=== PATIENT | female | born 1985 | race African-American/Black ===

== ENCOUNTER 2016-11-25 11:27 | Emergency (ER) | payer MEDICAID ==
--- NOTE | 2016-11-25 11:42 | ER Document Report ---
ED Medical Screen (RME) - General Chief Complaint: Breast Lump Stated Complaint: PAIN IN LEFT BREAST Mode of Arrival: Ambulatory Information source: Patient Notes: Patient presents complaining of tender lump between her breast and just into the lateral margin of her left breast. Patient denies any fever. Patient states she has been apply warm compresses and the area has become more swollen and painful. She does report a history of previous abscess in the past. TRAVEL OUTSIDE OF THE [place] IN LAST 30 DAYS: No - Related Data Allergies/Adverse Reactions: clindamycin [Clindamycin] Allergy (Verified 10/10/16 12:15) Swelling of hands and/or feet Past Medical History - Social History Family history: Reviewed & Not Pertinent - Past Medical History Cardiac Medical History: Reports: Hx Hypertension Denies: Hx Congestive Heart Failure, Hx Coronary Artery Disease, Hx Heart Attack Endocrine Medical History: Denies: Hx Diabetes Mellitus Type 1, Hx Diabetes Mellitus Type 2 - Borderline in the past. Musculoskeltal Medical History: Reports Hx Musculoskeletal Deformity Skin Medical History: Reports Hx Cellulitis, Reports Hx MRSA Psychiatric Medical History: Reports: Hx Anxiety, Hx Depression - AND ANXIETY Infectious Medical History: Reports: Hx MRSA Past Surgical History: Reports: Hx Breast Surgery - Right breast abscess incision and drainage, Hx Section - Immunizations Immunizations up to date: Yes Hx Diphtheria, Pertussis, Tetanus Vaccination: Yes - 2014 Physical Exam - Skin Irregularity with: Tenderness - Tender, indurated area between breasts
--- NOTE | 2016-11-25 13:26 | ER Document Report ---
ED General - General Chief Complaint: Breast Lump Stated Complaint: PAIN IN LEFT BREAST Mode of Arrival: Ambulatory Notes: Patient presents to the emergency department with complaints of a sore spot to her breast. Patient reports she had soreness to the same area 3 weeks ago she went to her provider was told to place warm packs on it and it went away. She reports pain returned 2 days ago. History of breast abscesses. History of multiple abscesses under her arm for which she's had surgeries for. She denies other symptoms such as fever vomiting diarrhea. TRAVEL OUTSIDE OF THE [place] IN LAST 30 DAYS: No - HPI Onset: Other - 3 weeks ago and then 2 days ago Onset/Duration: Waxing and waning Severity: Severe Pain Level: 4 Associated symptoms: None Exacerbated by: Denies Relieved by: Denies Similar symptoms previously: Yes Recently seen / treated by doctor: Yes - Related Data Allergies/Adverse Reactions: clindamycin [Clindamycin] Allergy (Verified 10/10/16 12:15) Swelling of hands and/or feet Past Medical History - General Information source: Patient - Social History Smoking Status: Current Every Day Smoker Cigarette use (# per day): Yes Chew tobacco use (# tins/day): - smokes 4 cigarettes daily Frequency of alcohol use: None Drug Abuse: None Family History: Reviewed & Not Pertinent, Hypertension, Other Patient has suicidal ideation: No Patient has homicidal ideation: No - Past Medical History Cardiac Medical History: Reports: Hx Hypertension Denies: Hx Congestive Heart Failure, Hx Coronary Artery Disease, Hx Heart Attack Endocrine Medical History: Denies: Hx Diabetes Mellitus Type 1, Hx Diabetes Mellitus Type 2 - Borderline in the past. Musculoskeltal Medical History: Reports Hx Musculoskeletal Deformity Skin Medical History: Reports Hx Cellulitis, Denies Hx MRSA - denied Psychiatric Medical History: Reports: Hx Anxiety, Hx Depression - AND ANXIETY Infectious Medical History: Reports: Hx MRSA Past Surgical History: Reports: Hx Breast Surgery - Right breast abscess incision and drainage, Hx Section - Immunizations Immunizations up to date: Yes Hx Diphtheria, Pertussis, Tetanus Vaccination: Yes - 2014 Review of Systems - Review of Systems Notes: Review HPI for review of systems., All other systems negative Physical Exam - Vital signs Vitals: Temp Pulse Resp BP Pulse Ox 98.6 F 86 16 144/94 H 100 11/25/16 11:42 11/25/16 11:42 11/25/16 11:42 11/25/16 11:42 11/25/16 11:42 - Notes Notes: PHYSICAL EXAMINATION: GENERAL: Well-appearing and in no acute distress HEAD: Atraumatic, normocephalic. EYES: Pupils equal round , extraocular movements intact, sclera anicteric, conjunctiva are normal. ENT: nares patent, . Moist mucous membranes. NECK: Normal range of motion, supple without lymphadenopathy LUNGS: CTAB and equal. No wheezes rales or rhonchi. HEART: Regular rate and rhythm without murmurs ABDOMEN: Denies pain EXTREMITIES: Normal range of motion NEUROLOGICAL: Cranial nerves grossly intact PSYCH: Normal mood, normal affect. SKIN: Warm, Dry, normal turgor,c/o tenderness inbetween breast and 0900 area to left breast. No erythema or warmth or pustule. Some firmness deep in the left breast Course - Re-evaluation Re-evalutation: 11/25/16 Patient had been evaluated and treated by Dr. Elke norris for her past surgeries. She was advised to follow-up with him. She reports she is to follow -up with her primary care provider to obtain a referral there. She was offered pain medication and accepted. - Vital Signs Vital signs: Temp Pulse Resp BP Pulse Ox 98.1 F 86 16 134/83 H 98 11/25/16 15:15 11/25/16 11:42 11/25/16 15:15 11/25/16 15:15 11/25/16 15:15 - Diagnostic Test Radiology reviewed: Image reviewed, Reports reviewed - IMPRESSION: 17 MM COMPLEX FLUID COLLECTION WITHIN THE SUBDERMAL SOFT TISSUES MEDIAL LEFT BREAST/ CHEST. THIS COULD REPRESENT A SMALL ABSCESS OR INFECTED SEBACEOUS CYST. CORRELATE WITH PHYSICAL EXAM FINDINGS. Discharge - Discharge Clinical Impression: Breast pain Condition: Stable Disposition: HOME, SELF-CARE Instructions: Oral Narcotic Medication ([facility]) Additional Instructions: *You have been treated for breast pain *Take medication as prescribed for pain *Monitor your breast for signs of infection such as increasing pain, redness, swelling, warmth *warm packs *Follow up with your primary care provider tomorrow for surgical referral *Return to ED for signs of infection, worsening condition, changes, needs Prescriptions: Hydrocodone/Acetaminophen [Lamoni 5-325 Tablet] 1 each PO QID #15 tablet Forms: Return to Work
[2016-11-25 15:28] VITALS: BP 134/83
== END 2016-11-25 15:20 | disposition home or self-care (01) ==
LOC: ER 11:27
DX: N64.4 Mastodynia (principal); I10 Essential (primary) hypertension; F17.210 Nicotine dependence, cigarettes, uncomplicated; Z87.2 Personal history of diseases of the skin and subcutaneous tissue; Z88.1 Allergy status to other antibiotic agents
CPT/HCPCS: 76604; 99283

== ENCOUNTER 2016-12-01 16:09 | Emergency (ER) | payer MEDICAID ==
--- NOTE | 2016-12-01 16:15 | ER Document Report ---
ED Medical Screen (RME) - General Stated Complaint: DIFFICULTY BREATHING Mode of Arrival: Ambulatory Information source: Patient Notes: pt c/o sob for past 4 days, pt reports mild cough. Pt taking antibiotics for URI after seeing her pcp. pt denies any hx dvt/pe, recent travel or immboliization TRAVEL OUTSIDE OF THE [place] IN LAST 30 DAYS: No - Related Data Allergies/Adverse Reactions: clindamycin [Clindamycin] Allergy (Verified 10/10/16 12:15) Swelling of hands and/or feet Past Medical History - Social History Family history: Reviewed & Not Pertinent - Past Medical History Cardiac Medical History: Reports: Hx Hypertension Denies: Hx Congestive Heart Failure, Hx Coronary Artery Disease, Hx Heart Attack Endocrine Medical History: Denies: Hx Diabetes Mellitus Type 1, Hx Diabetes Mellitus Type 2 - Borderline in the past. Musculoskeltal Medical History: Reports Hx Musculoskeletal Deformity Skin Medical History: Reports Hx Cellulitis, Denies Hx MRSA - denied Psychiatric Medical History: Reports: Hx Anxiety, Hx Depression - AND ANXIETY Infectious Medical History: Reports: Hx MRSA Past Surgical History: Reports: Hx Breast Surgery - Right breast abscess incision and drainage, Hx Section - Immunizations Immunizations up to date: Yes Hx Diphtheria, Pertussis, Tetanus Vaccination: Yes - 2014 Physical Exam - Respiratory Respiratory status: No respiratory distress Breath sounds: Nonproductive cough
[2016-12-01 16:16] VITALS: BP 148/94
--- NOTE | 2016-12-01 16:55 | ER Document Report ---
[id number] BREATHING Mode of Arrival: Ambulatory Information source: Patient Notes: 31-year-old female history of anxiety who has now presented here twice in 1 day presents with complaints of shortness of breath. Patient has been seen multiple times for the exact same complaint. Patient notes that she was actually seen by primary care physician 3 days prior with the same complaints and was given azithromycin cough medication and Singulair. Patient notes her cough is improved but she wanted to check up and make sure that she has improved completely. Patient denies any DVT or PE risk factors. Patient denies any productive cough. TRAVEL OUTSIDE OF THE [place] IN LAST 30 DAYS: No - HPI Onset: Last week Onset/Duration: Persistent Quality of pain: No pain Severity: Mild Pain Level: Denies Associated symptoms: Shortness of breath Exacerbated by: Denies Relieved by: Denies Similar symptoms previously: Yes Recently seen / treated by doctor: Yes - Related Data Allergies/Adverse Reactions: clindamycin [Clindamycin] Allergy (Verified 12/01/16 16:15) Swelling of hands and/or feet Past Medical History - General Information source: Patient - Social History Smoking Status: Current Every Day Smoker Cigarette use (# per day): Yes Chew tobacco use (# tins/day): No Smoking Education Provided: Yes - Patient counselled regarding cessation for 4 minutes Frequency of alcohol use: None Drug Abuse: None Family History: Reviewed & Not Pertinent, Hypertension, Other Patient has suicidal ideation: No Patient has homicidal ideation: No - Past Medical History Cardiac Medical History: Reports: Hx Hypertension Denies: Hx Congestive Heart Failure, Hx Coronary Artery Disease, Hx Heart Attack Endocrine Medical History: Denies: Hx Diabetes Mellitus Type 1, Hx Diabetes Mellitus Type 2 - Borderline in the past. Musculoskeltal Medical History: Reports Hx Musculoskeletal Deformity Skin Medical History: Reports Hx Cellulitis, Denies Hx MRSA - denied Psychiatric Medical History: Reports: Hx Anxiety, Hx Depression - AND ANXIETY Infectious Medical History: Reports: Hx MRSA Past Surgical History: Reports: Hx Breast Surgery - Right breast abscess incision and drainage, Hx Section - Immunizations Immunizations up to date: Yes Hx Diphtheria, Pertussis, Tetanus Vaccination: Yes - 2014 Review of Systems - Review of Systems Notes: REVIEW OF SYSTEMS: CONSTITUTIONAL : Denies fever, chills, or sweats. Denies recent illness. EENT: Denies eye, ear, throat, or mouth pain or symptoms. Denies nasal or sinus congestion or discharge. Denies throat, tongue, or mouth swelling or difficulty swallowing. CARDIOVASCULAR: Denies chest pain. Denies palpitations or racing or irregular heart beat. Denies ankle edema. RESPIRATORY: Admits to shortness of breath difficulty breathing GASTROINTESTINAL: Denies abdominal pain or distention. Denies nausea, vomiting , or diarrhea. Denies blood in vomitus, stools, or per rectum. Denies black, tarry stools. Denies constipation. GENITOURINARY: Denies difficulty urinating, painful urination, burning, frequency, blood in urine, or discharge. FEMALE GENITOURINARY: Denies vaginal bleeding, heavy or abnormal periods, irregular periods. Denies vaginal discharge or odor. MUSCULOSKELETAL: Denies back or neck pain or stiffness. Denies joint pain or swelling. SKIN: Denies rash, lesions or sores. HEMATOLOGIC : Denies easy bruising or bleeding. LYMPHATIC: Denies swollen, enlarged glands. NEUROLOGICAL: Denies confusion or altered mental status. Denies passing out or loss of consciousness. Denies dizziness or lightheadedness. Denies headache. Denies weakness or paralysis or loss of use of either side. Denies problems with gait or speech. Denies sensory loss, numbness, or tingling. Denies seizures. PSYCHIATRIC: Denies anxiety or stress. Denies depression, suicidal ideation, or homicidal ideation. ALL OTHER SYSTEMS REVIEWED AND NEGATIVE. Dictation was performed using [employer] voice recognition software PHYSICAL EXAMINATION: GENERAL: Well-appearing, well-nourished and in no acute distress. HEAD: Atraumatic, normocephalic. EYES: Pupils equal round and reactive to light, extraocular movements intact, conjunctiva are normal. ENT: Nares patent, oropharynx clear without exudates. Moist mucous membranes. NECK: Normal range of motion, supple without lymphadenopathy LUNGS: Breath sounds clear to auscultation bilaterally and equal. No wheezes rales or rhonchi. HEART: Regular rate and rhythm without murmurs ABDOMEN: Soft, nontender, nondistended abdomen. No guarding, no rebound. No masses appreciated. Female : deferred Musculoskeletal: Normal range of motion, no pitting or edema. No cyanosis. NEUROLOGICAL: Cranial nerves grossly intact. Normal speech, normal gait. Normal sensory, motor exams PSYCH: Normal mood, normal affect. SKIN: Warm, Dry, normal turgor, no rashes or lesions noted. Physical Exam - Vital signs Vitals: Temp Pulse Resp BP Pulse Ox 97.9 F 86 18 148/94 H 99 12/01/16 16:13 12/01/16 16:13 12/01/16 16:13 12/01/16 16:13 12/01/16 16:13 Course - Re-evaluation Re-evalutation: 12/01/16 16:49 Chest x-ray noted no acute abnormality, patient's vital signs are completely stable. Patient was actually just here for another complaint is a few hours prior. She is in no distress has actually been seen for her cough and was given Singulair azithromycin and cough medication by her primary care physician. Therefore I do not believe there is any medical emergency or life- threatening issue at this time. 12/01/16 17:11 After performing a Medical Screening Examination, I estimate there is LOW risk for ACUTE CORONARY SYNDROME, RESPIRATORY FAILURE, SEPSIS OR MENINGITIS, thus I consider the discharge disposition reasonable. The patient and I have discussed the diagnosis and risks, and we agree with discharging home with close follow- up. We also discussed returning to the Emergency Department immediately if new or worsening symptoms occur. We have discussed the symptoms which are most concerning (e.g., changing or worsening pain, trouble swallowing or breathing, neck stiffness, fever) that necessitate immediate return. - Vital Signs Vital signs: Temp Pulse Resp BP Pulse Ox 97.9 F 91 14 148/94 H 99 12/01/16 16:16 12/01/16 16:16 12/01/16 16:48 12/01/16 16:16 12/01/16 16:16 Discharge - Discharge Clinical Impression: Shortness of breath Condition: Stable Disposition: HOME, SELF-CARE Instructions: Dyspnea, Nonspecific ([facility]) Additional Instructions: Follow up with your physician tomorrow for further care or return to the ED IMMEDIATELY if symptoms worsen or new concerns occur
== END 2016-12-01 17:06 | disposition home or self-care (01) ==
LOC: ER 16:09
DX: R06.02 Shortness of breath (principal); R06.00 Dyspnea, unspecified; F17.210 Nicotine dependence, cigarettes, uncomplicated; I10 Essential (primary) hypertension; Z86.14 Personal history of Methicillin resistant Staphylococcus aureus infection; Z88.3 Allergy status to other anti-infective agents
CPT/HCPCS: 71020; 99284

== ENCOUNTER 2017-02-28 18:00 | Emergency (ER) | payer MEDICAID ==
--- NOTE | 2017-02-28 18:45 | ER Document Report ---
ED Neck/Back Problem - General Chief Complaint: Flank Pain Stated Complaint: BACK/BREAST PAIN Time seen by provider: 18:44 Mode of Arrival: Ambulatory Information source: Patient Notes: 31-year-old female presented to ED for complain of sharp pain off and on to her right upper lateral back. States she has this pain off and on but actually has no pain when I examined her. States she had not had a bowel movement for couple days and she had talked with her doctor and they had put her on a powder that she was supposed to take last week but she had not been taken it as prescribed and states she would go home and start taking it again as prescribed. TRAVEL OUTSIDE OF THE [place] IN LAST 30 DAYS: No - HPI Patient complains to provider of: Pain, Upper back Onset: Other - 3 or 4 days intermittently Onset: Gradual Timing: Gone now Quality of pain: Sharp Severity: None Pain Level: Denies Context: Other - States she has a pain off and on none at this moment Recent injury: No Associated symptoms: Upper back pain - Lateral right back Exacerbated by: Movement of trunk Relieved by: Nothing Similar symptoms previously: Yes Recently seen / treated by doctor: Yes - Related Data Allergies/Adverse Reactions: clindamycin [Clindamycin] Allergy (Verified 02/28/17 18:06) Swelling of hands and/or feet Home Medications: Current Home Medications Lisinopril/Hydrochlorothiazide [Lisinopril-Hctz 20-25 mg Tab] 1 each PO DAILY [History] Past Medical History - General Information source: Patient - Social History Smoking Status: Current Every Day Smoker Cigarette use (# per day): Yes - 4-5 cigarettes a day Chew tobacco use (# tins/day): No Smoking Education Provided: Yes - less than 1 minute Frequency of alcohol use: None Drug Abuse: None Occupation: none Lives with: Spouse/Significant other - With children Family History: Hypertension, Other Patient has suicidal ideation: No Patient has homicidal ideation: No - Past Medical History Cardiac Medical History: Reports: Hx Hypertension Pulmonary Medical History: Reports: None EENT Medical History: Reports: None Neurological Medical History: Reports: None Endocrine Medical History: Reports: Hx HypothyroidismComment Only: Hx Diabetes Mellitus Type 2 - Borderline in the past. Renal/ Medical History: Reports: None Malignancy Medical History: Reports: None GI Medical History: Reports: None Musculoskeltal Medical History: Reports Hx Musculoskeletal Deformity Skin Medical History: Reports Hx Cellulitis, Reports Hx MRSA Psychiatric Medical History: Reports: Hx Anxiety, Hx Depression - AND ANXIETY Traumatic Medical History: Reports: None Infectious Medical History: Reports: Hx MRSA Past Surgical History: Reports: Hx Breast Surgery - Right breast abscess incision and drainage, Hx Section - Immunizations Immunizations up to date: Yes Hx Diphtheria, Pertussis, Tetanus Vaccination: Yes - 2014 Review of Systems - Review of Systems Constitutional: No symptoms reported EENT: No symptoms reported Cardiovascular: No symptoms reported Respiratory: No symptoms reported Gastrointestinal: No symptoms reported Genitourinary: No symptoms reported Female Genitourinary: No symptoms reported Musculoskeletal: Back pain - States she's been having some pain on the right upper lateral back but no pain at the time of examination Skin: No symptoms reported Hematologic/Lymphatic: No symptoms reported Neurological/Psychological: No symptoms reported Physical Exam - Vital signs Vitals: Temp Pulse Resp BP Pulse Ox 99.2 F 92 19 145/96 H 98 02/28/17 18:06 02/28/17 18:06 02/28/17 18:06 02/28/17 18:06 02/28/17 18:06 Interpretation: Normal - General General appearance: Appears well, Alert - HEENT Head: Normocephalic, Atraumatic Eyes: Normal Pupils: PERRL - Respiratory Respiratory status: No respiratory distress Chest status: Nontender Breath sounds: Normal Chest palpation: Normal - Cardiovascular Rhythm: Regular Heart sounds: Normal auscultation Murmur: No - Abdominal Inspection: Normal Distension: No distension Bowel sounds: Normal Tenderness: Nontender Organomegaly: No organomegaly - Back Back: Normal, Nontender - Extremities General upper extremity: Normal inspection, Nontender, Normal color, Normal ROM , Normal temperature General lower extremity: Normal inspection, Nontender, Normal color, Normal ROM , Normal temperature, Normal weight bearing. No: Jose Alfredo's sign - Neurological Neuro grossly intact: Yes Cognition: Normal Orientation: AAOx4 [place] Coma Scale Eye Opening: Spontaneous [place] Coma Scale Verbal: Oriented [place] Coma Scale Motor: Obeys Commands [place] Coma Scale Total: 15 Speech: Normal Motor strength normal: LUE, RUE, LLE, RLE Sensory: Normal - Psychological Associated symptoms: Normal affect, Normal mood - Skin Skin Temperature: Warm Skin Moisture: Dry Skin Color: Normal Course - Re-evaluation Re-evalutation: 02/28/17 22:23 Discussed x-ray with patient patient states she did not have any pain at this moment but she has this pain off and on and would like an x-ray so the x-ray was completed and was negative. Patient instructed to follow-up with her primary doctor and to take the laxative as prescribed by her doctor. - Vital Signs Vital signs: Temp Pulse Resp BP Pulse Ox 98.7 F 87 18 137/86 H 99 02/28/17 19:56 02/28/17 19:56 02/28/17 19:56 02/28/17 19:56 02/28/17 19:56 - Diagnostic Test Radiology reviewed: Image reviewed, Reports reviewed Discharge - Discharge Clinical Impression: Back pain Qualifiers: Back pain location: thoracic back pain Chronicity: unspecified Back pain laterality: right Qualified Code(s): M54.6 - Pain in thoracic spine Condition: Stable Disposition: HOME, SELF-CARE Additional Instructions: Myalagia (Muscle Pain) Myalgia is pain in the muscles. We use the word myalgia to describe muscle pain where there's no history of injury, no known muscle disease, and the muscles are normal to examination. Myalgias can be a symptom of an acute illness , such as influenza, hepatitis, or any viral illness, especially with fever. Sometimes the muscle pain comes before any other symptoms. Myalgia can also be an early symptom of inflammatory muscle disease, such as lupus. If myalgia is accompanied by an acute illness that explains the muscle pain , then no further testing needs to be done. When there's no clear reason for the pain, tests may be done to see if there's an inflammatory or other disease of the muscles. The usual treatment for myalgias is anti-inflammatory medication, such as ibuprofen. Muscle aches may be soothed with a heating pad or hot compress. If muscles remain painful for more than a few days, you'll need testing and followup. Return if a muscle becomes swollen, red, or severely painful. ICE PACKS: Apply ice packs frequently against the painful area. Many different schedules are recommended, such as "20 minutes on, 20 minutes off" or "one hour ice, two hours rest." If you need to work, you may need to go longer between ice treatments. You should plan to have the area ice packed AT LEAST one fourth of the time. The ice should be applied over the wrap, tape, or splint, or over a layer of cloth -- not directly against the skin. Some ice bags have a built-in cloth and can be put directly on the skin. WARM PACKS: After approximately two days, apply gentle heat (such as a heating pad or hot water bottle) for about 20 to 30 minutes about every two hours -- at least four times daily. Warmth and elevation will help you make a more rapid recovery , and will ease the pain considerably. Do not use HOT heat, and never apply heat for longer than 30 minutes. The continuous heat can invisibly damage skin and muscles -- even when no burn is seen on the surface. Damaged muscles can make you MORE sore. Acetaminophen Acetaminophen may be taken for pain relief or fever control. It's much safer than aspirin, offering a wider range of "safe" dosages. It is safe during . Some brand names are Tylenol, Panadol, Datril, Anacin 3, Tempra, and Liquiprin. Acetaminophen can be repeated every four hours. The following are maximum recommended dosages: WEIGHT Dose Drops Elixir Chewable( 80mg) (LBS.) drprs=droppers tsp=teaspoon 6 40 mg .4 ml (1/2) 6-11 80 mg .8 ml (full) 1/2 tsp 1 tab 12-16 120 mg 1 1/2 drprs 3/4 tsp 1 1/2 tabs 17-23 160 mg 2 drprs 1 tsp 2 tabs 24-30 240 mg 3 drprs 1 1/2 tsp 3 tabs 30-35 320 mg 2 tsp 4 tabs 36-41 360 mg 2 1/4 tsp 4 1 /2 tabs 42-47 400 mg 2 1/2 tsp 5 tabs 48-53 480 mg 3 tsp 6 tabs 54-59 520 mg 3 1/4 tsp 6 1 /2 tabs 60-64 560 mg 3 1/2 tsp 7 tabs 65-70 600 mg 3 3/4 tsp 7 1 /2 tabs 71-76 640 mg 4 tsp 8 tabs 77-82 720 mg 4 1/2 tsp 9 tabs 83-88 800 mg 5 tsp 10 tabs >89 pounds or adults 650 mg to 900 mg Acetaminophen can be repeated every four hours. Maximum daily dose not to exceed 4000 mg. These maximum recommended dosages are slightly higher than the dosages written on the product container, but these dosages are very safe and well below the toxic dosage for acetaminophen. USE OF [id number] IBUPROFEN: Ibuprofen (Advil, Nuprin, Medipren, Motrin IB) is a medication for fever and pain control. In addition, it has anti- inflammatory effects which may be beneficial, especially in the treatment of injuries. It's best to take ibuprofen with food. Persons with ulcer disease or allergy to aspirin should notify their physician of this before taking ibuprofen. Ibuprofen can be given every four to six hours, for a total of four doses daily. Age Pain or fever dose Antiinflammatory dose 6-8 yr 200 mg (1 tab) 200 mg (1 tab) 9-11 yr 200 mg (1 tab) 200-400 mg (1-2 tab) 11-14 yr 200-400 mg (1-2 tab) 400 mg (2 tab) 15-adult 400 mg (2 tab) 600 mg (3 tab) FOLLOW-UP CARE: If you have been referred to a physician for follow-up care, call the physician s office for an appointment as you were instructed or within the next two days. If you experience worsening or a significant change in your symptoms, notify the physician immediately or return to the Emergency Department at any time for re-evaluation. Please complete the patient's satisfaction survey if you get one and return. If you do not receive a survey you can go to [facility] website [email or web address] and placed her comments about your very good care. Thank you very much. It was a pleasure be in your medical provider today. Forms: Elevated Blood Pressure, Smoking Cessation Education Referrals: DESMOND WONG FNP [Primary Care Provider] - Follow up as needed
[2017-02-28 19:56] VITALS: BP 137/86
== END 2017-02-28 19:56 | disposition home or self-care (01) ==
LOC: ER 18:00
DX: M54.6 Pain in thoracic spine (principal); R19.4 Change in bowel habit; I10 Essential (primary) hypertension; F17.210 Nicotine dependence, cigarettes, uncomplicated; Z91.14 Patient's other noncompliance with medication regimen; Z88.1 Allergy status to other antibiotic agents; Z71.6 Tobacco abuse counseling; Z86.14 Personal history of Methicillin resistant Staphylococcus aureus infection
CPT/HCPCS: 71020; 99283

== ENCOUNTER 2017-03-06 21:05 | Emergency (ER) | payer MEDICAID ==
[2017-03-06 21:46] VITALS: BP 148/92
== END 2017-03-07 00:46 | disposition left against medical advice (07) ==
LOC: ER 21:05
DX: Z53.21 Procedure and treatment not carried out due to patient leaving prior to being seen by health care provider (principal)

== ENCOUNTER 2017-04-13 20:13 | Emergency (ER) | payer MEDICAID ==
[2017-04-13] MEDS ORDERED: NORMAL SALINE 1000 ML 1,000 ML IV ONE (20:41)
--- NOTE | 2017-04-13 20:42 | ER Document Report ---
ED GI/ - General Chief Complaint: Nausea Stated Complaint: WEAKNESS Time Seen by Provider: 04/13/17 20:40 Notes: Patient is a 31-year-old female who presents with 1 day of nausea and generalized weakness. She says that she is not drinking much water for the past several days while she is outside in the heat. She denies focal weakness, numbness, tingling, chest pain, shortness of breath, urinary symptoms, vaginal bleeding, abdominal pain, headache, vomiting or diarrhea TRAVEL OUTSIDE OF THE [place] IN LAST 30 DAYS: No - Related Data Allergies/Adverse Reactions: clindamycin [Clindamycin] Allergy (Verified 03/06/17 21:42) Swelling of hands and/or feet Past Medical History - General Information source: Patient - Social History Smoking Status: Unknown if Ever Smoked Family History: Hypertension, Other Patient has suicidal ideation: No Patient has homicidal ideation: No - Past Medical History Cardiac Medical History: Reports: Hx Hypertension Denies: Hx Congestive Heart Failure, Hx Coronary Artery Disease, Hx Heart Attack Endocrine Medical History: Reports: Hx Hypothyroidism. Denies: Hx Diabetes Mellitus Type 1. 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 Renal/ Medical History: Denies: Hx Peritoneal Dialysis Musculoskeltal Medical History: Reports Hx Musculoskeletal Deformity Skin Medical History: Reports Hx Cellulitis, Reports Hx MRSA Psychiatric Medical History: Reports: Hx Anxiety, Hx Depression - AND ANXIETY Infectious Medical History: Reports: Hx MRSA Past Surgical History: Reports: Hx Breast Surgery - Right breast abscess incision and drainage, Hx Section - Immunizations Immunizations up to date: Yes Hx Diphtheria, Pertussis, Tetanus Vaccination: Yes - 2014 Review of Systems - Review of Systems Notes: REVIEW OF SYSTEMS: CONSTITUTIONAL: -fevers, -chills EENT: -eye pain, -difficulty swallowing, -nasal congestion CARDIOVASCULAR:-chest pain, -syncope. RESPIRATORY: -cough, -SOB GASTROINTESTINAL: -abdominal pain, +nausea, -vomiting, -diarrhea GENITOURINARY: -dysuria, -hematuria MUSCULOSKELETAL: -back pain, -neck pain SKIN: -rash or skin lesions. HEMATOLOGIC: -easy bruising or bleeding. LYMPHATIC: -swollen, enlarged glands. NEUROLOGICAL: -altered mental status or loss of consciousness, -headache, - neurologic symptoms, +generalized weakness PSYCHIATRIC: -anxiety, -depression. ALL OTHER SYSTEMS REVIEWED AND NEGATIVE. Physical Exam - Vital signs Vitals: Temp Pulse Resp BP Pulse Ox 98 F 80 16 148/87 H 98 04/13/17 20:32 04/13/17 20:32 04/13/17 20:32 04/13/17 20:32 04/13/17 20:32 - Notes Notes: PHYSICAL EXAMINATION: GENERAL: Well-appearing, well-nourished and in no acute distress. HEAD: Atraumatic, normocephalic. EYES: Pupils equal round and reactive to light, extraocular movements intact, sclera anicteric, conjunctiva are normal. ENT: nares patent, oropharynx clear without exudates. Moist mucous membranes. NECK: Normal range of motion, supple without lymphadenopathy LUNGS: Breath sounds clear to auscultation bilaterally and equal. No wheezes rales or rhonchi. HEART: Regular rate and rhythm without murmurs ABDOMEN: Soft, nontender, normoactive bowel sounds. No guarding, no rebound. No masses appreciated. EXTREMITIES: Normal range of motion, no pitting or edema. No cyanosis. NEUROLOGICAL: Cranial nerves grossly intact. Normal speech, normal gait. Normal sensory, motor, and reflex exams. PSYCH: Normal mood, normal affect. SKIN: Warm, Dry, normal turgor, no rashes or lesions noted. Course - Re-evaluation Re-evalutation: Patient appears well. She has 5 out of 5 strength in all 4 extremities and no neuro symptoms. After fluids, she is not feeling weak. Instructed her to continue drinking plenty of water and following up with her primary care physician this week - Vital Signs Vital signs: Temp Pulse Resp BP Pulse Ox 98 F 80 16 148/87 H 98 04/13/17 20:32 04/13/17 20:32 04/13/17 20:32 04/13/17 20:32 04/13/17 20:32 - Laboratory Result Diagrams: 04/13/17 20:50 04/13/17 20:50 Laboratory results interpreted by me: 04/13/17 04/13/17 20:40 20:50 MCV 100 H MCH 33.5 H RDW 14.2 H Urine Blood SMALL H Discharge - Discharge Clinical Impression: Nausea Fatigue Qualifiers: Fatigue type: unspecified Qualified Code(s): R53.83 - Other fatigue Condition: Stable Disposition: HOME, SELF-CARE Additional Instructions: NORMAL EXAM AND WORKUP: At this time, your examination and workup show no significant abnormality. No significant abnormal physical findings were noted. All laboratory, EKG, and imaging (x-ray, CT scans, ultrasound) studies that were ordered show no significant abnormality. Although your examination and all studies that were ordered showed no significant abnormal finding, there are no examinations and no studies that are 100% accurate. There is always the possibility that some abnormality could exist and not be detected with physical examination or within the limits and capabilities of laboratory and other studies. You should return or follow up as you were instructed on your visit today for further evaluation if your symptoms do not resolve. Prescriptions: Ondansetron [Zofran Odt 4 mg Tablet] 1 - 2 tab PO Q4H PRN #15 tab.rapdis PRN Reason: For Nausea/Vomiting
[2017-04-13] MEDS ORDERED: ONDANSETRON HCL INJ/PF 4 MG/2 ML SDV IV ONE (20:49)
[2017-04-13 21:04] LABS: ABSOLUTE EOSINOPHILS # (AUTO) 0.1 10^3/uL (0.0-0.6); ABSOLUTE LYMPHOCYTES (AUTO) 2.5 10^3/uL (0.5-4.7); ABSOLUTE MONOCYTES (AUTO) 0.5 10^3/uL (0.1-1.4); ABSOLUTE NEUT (AUTO) 4.1 10^3/uL (1.7-8.2); BASOPHILS % (AUTO) 0.6 % (0-2); EOSINOPHILS % (AUTO) 1.3 % (0-6); HEMATOCRIT 44.7 % (36.0-47.0); HGB HCT DIFFERENCE 0.3; LYMPHOCYTES % (AUTO) 34.8 % (13-45); MEAN CORPUSCULAR HEMOGLOBIN 33.5 pg (27.0-33.4); MEAN CORPUSCULAR HGB CONC 33.5 g/dL (32.0-36.0); MEAN CORPUSCULAR VOLUME 100 fl (80-97); MONOCYTES % (AUTO) 6.7 % (3-13); RED BLOOD COUNT 4.47 10^6/uL (3.72-5.28); RED CELL DISTRIBUTION WIDTH 14.2 % (11.5-14.0); SEGMENTED NEUTROPHILS % (AUTO) 56.6 % (42-78); WHITE BLOOD COUNT 7.3 10^3/uL (4.0-10.5)
[2017-04-13 21:16] LABS: APPEARANCE,URINE CLEAR; BILIRUBIN,URINE NEGATIVE (NEGATIVE); GLUCOSE, URINE NEGATIVE (NEGATIVE); KETONES,URINE NEGATIVE (NEGATIVE); LEUKOCYTE ESTERASE,URINE NEGATIVE (NEGATIVE); NITRITE,URINE NEGATIVE (NEGATIVE); PROTEIN,URINE NEGATIVE (NEGATIVE); URINE SPECIFIC GRAVITY 1.016; UROBILINOGEN,URINE NEGATIVE mg/dL (<2.0)
[2017-04-13 21:28] LABS: ANION GAP 11 (5-19); BLOOD UREA NITROGEN 12 mg/dL (7-20); CALCIUM 9.6 mg/dL (8.4-10.2); CARBON DIOXIDE 27 mmol/L (22-30); CHLORIDE 102 mmol/L (98-107); CREATININE RESULT 0.82 mg/dL (0.52-1.25); GLUCOSE 99 mg/dL (75-110); POTASSIUM 4.1 mmol/L (3.6-5.0); SODIUM 139.7 mmol/L (137-145)
[2017-04-13 21:53] VITALS: BP 122/74
== END 2017-04-13 21:53 | disposition home or self-care (01) ==
LOC: ER 20:13
DX: R11.0 Nausea (principal); R53.83 Other fatigue; R53.1 Weakness; I10 Essential (primary) hypertension; Z88.1 Allergy status to other antibiotic agents; Z86.14 Personal history of Methicillin resistant Staphylococcus aureus infection
CPT/HCPCS: 99283; 96374; 36415; 84443; 85025; 81025; 80048; 81001; J2405; J7030

== ENCOUNTER 2017-07-09 23:17 | Emergency (ER) | payer MEDICAID ==
--- NOTE | 2017-07-09 23:41 | ER Document Report ---
ED Dizziness/Weakness - General Mode of Arrival: Wheelchair Information source: Patient TRAVEL OUTSIDE OF THE [place] IN LAST 30 DAYS: No <ALEXANDRIA FRARIS - Last Filed: 07/10/17 01:14> <LISA PELAEZ - Last Filed: 07/15/17 11:37> - General Chief Complaint: Dizziness Stated Complaint: LIGHT HEADED Time Seen by Provider: 07/09/17 23:37 Notes: Patient is a 31-year-old female presented emergency department for lightheaded dizzinessness, blurry vision, and headache. Patient states that her lightheadedness and blurry vision started while she was in class at her headache started 1-2 hours prior to arrival. Patient does not have any focal weakness, numbness or tingling. Patient states she is possibly dehydrated but does state that she drank 2 bottles of water earlier today. Patient denies any nausea, vomiting, diarrhea, chest pain, or shortness of breath. Patient does have a history of hypertension and takes atenolol and lisinopril for this. Patient denies any history of frequent headaches or diagnoses of migraines. Patient states that her first headache however she does not have them frequently. Patient's mother of myocardial infarction and patient denies any history of brain aneurysm in her family. Patient is allergic to clindamycin. Primary care physician is [facility]. (ALEXANDRIA FARRIS) - Related Data Allergies/Adverse Reactions: clindamycin [Clindamycin] Allergy (Verified 03/06/17 21:42) Swelling of hands and/or feet Past Medical History - General Information source: Patient - Social History Smoking Status: Never Smoker Cigarette use (# per day): No Family History: Hypertension, Other Patient has suicidal ideation: No Patient has homicidal ideation: No - Past Medical History Cardiac Medical History: Reports: Hx Hypertension Endocrine Medical History: Reports: Hx HypothyroidismComment Only: Hx Diabetes Mellitus Type 2 - Borderline in the past. Musculoskeltal Medical History: Reports Hx Musculoskeletal Deformity Skin Medical History: Reports Hx Cellulitis, Reports Hx MRSA Psychiatric Medical History: Reports: Hx Anxiety, Hx Depression - AND ANXIETY Infectious Medical History: Reports: Hx MRSA Past Surgical History: Reports: Hx Breast Surgery - Right breast abscess incision and drainage, Hx Section - Immunizations Immunizations up to date: Yes Hx Diphtheria, Pertussis, Tetanus Vaccination: Yes - 2014 <ALEXANDRIA FARRIS - Last Filed: 07/10/17 01:14> Review of Systems - Review of Systems Constitutional: No symptoms reported EENT: See HPI, Blurred vision Cardiovascular: See HPI, Lightheaded Respiratory: No symptoms reported Gastrointestinal: No symptoms reported Genitourinary: No symptoms reported Female Genitourinary: No symptoms reported Musculoskeletal: No symptoms reported Skin: No symptoms reported Hematologic/Lymphatic: No symptoms reported Neurological/Psychological: See HPI, Headaches -: Yes All other systems reviewed and negative <ALEXANDRIA FARRIS - Last Filed: 07/10/17 01:14> Physical Exam <ALEXANDRIA FARRIS - Last Filed: 07/10/17 01:14> <LISA PELAEZ - Last Filed: 07/15/17 11:37> - Notes Notes: GENERAL: Alert, interacts well. No acute distress. HEAD: Normocephalic, atraumatic. EYES: Appear normal. Pupils equal, round, and reactive to light. Extraocular movements intact. ENT: Moist mucus membranes, tongue midline. NECK: Full range of motion. Supple. Trachea midline. LUNGS: Clear to auscultation bilaterally, no wheezes, rales, or rhonchi. No respiratory distress. HEART: Regular rate and rhythm. No murmurs, gallops, or rubs. ABDOMEN: Soft, non-tender. Non-distended. Normal bowel sounds. EXTREMITIES: Moves all 4 extremities spontaneously. Normal strength. No edema. NEUROLOGICAL: Alert and oriented x3. Normal speech. No focal neurological deficits. GSC 15. PSYCH: Normal affect, normal mood. SKIN: Warm, dry, normal turgor. No rashes or lesions noted. (ALEXANDRIA FARRIS) Course - Laboratory Result Diagrams: 07/10/17 00:25 07/10/17 00:25 <ALEXANDRIA FARRIS - Last Filed: 07/10/17 01:14> - Laboratory Result Diagrams: 07/10/17 00:25 07/10/17 00:25 <LISA PELAEZ - Last Filed: 07/15/17 11:37> - Re-evaluation Re-evalutation: 07/10/17 02:40 Presents emergency department with a chief complaint of gradual onset of headache photophobia nausea absent no vomiting or diarrhea. She said she has not been herself lately and has not been drinking very many fluids so that she may be a little dehydrated. She does not have a history of brain aneurysm in the family or herself. She otherwise previously healthy with no nausea vomiting or diarrhea this is not the worst headache of her life. Is not associated with slurred speech weakness on one side of body versus the other. No chest pain shortness breath syncope or near syncope abdominal pain flank pain or urinary symptoms. On examination well-appearing nontoxic in no acute distress no vertiginous symptoms HEENT is normal neurological exam completely normal heart lungs abdomen nonacute laboratory evaluation stable including urine urine and electrolytes. Patient reassessed to have a drink a few bottles of water she feels significantly better no acute concerns for stroke or aneurysm. Discharged to follow-up with outpatient invited and 3-4 days and discussed reasons for ED return sooner (LISA PELAEZ) - Laboratory Laboratory results interpreted by me: 07/10/17 07/10/17 07/10/17 00:25 00:25 00:31 MCV 101 H MCH 34.8 H Glucose 111 H Urine Urobilinogen 4.0 H Discharge <ALEXANDRIA FARRIS - Last Filed: 07/10/17 01:14> <LISA PELAEZ - Last Filed: 07/15/17 11:37> - Discharge Clinical Impression: Dizziness Condition: Stable Disposition: HOME, SELF-CARE Instructions: Dizziness (OM) Additional Instructions: Dizziness Under normal circumstances, your sense of balance is controlled by a number of signals that your brain receives from several locations: Eyes. No matter what your position, visual signals help you determine where your body is in space and how it's moving. Sensory nerves. These are in your skin, muscles and joints. Sensory nerves send messages to your brain about body movements and positions. Inner ear. The organ of balance in your inner ear is the vestibular labyrinth. It includes loop-shaped structures (semicircular canals) that contain fluid and fine, hair-like sensors that monitor the rotation of your head. Near the semicircular canals are the utricle and saccule, which contain tiny particles called otoconia ([id number]). These particles are attached to sensors that help detect gravity and [id number] motion. Good balance depends on at least two of these three sensory systems working well. For instance, closing your eyes while washing your hair in the shower doesn't mean you'll lose your balance. Signals from your inner ear and sensory nerves help keep you upright. However, if your central nervous system can't process signals from all of these locations, if the messages are contradictory, or if the sensory systems aren't functioning properly, you may experience loss of balance. Dizziness may have a number of potential causes. These may include: Vertigo Vertigo - the false sense of motion or spinning - is the most common symptom of dizziness. Sitting up or moving around may make it worse. Sometimes vertigo is severe enough to cause nausea and vomiting. Vertigo usually results from a problem with the nerves and the structures of the balance mechanism in your inner ear (vestibular system), which sense movement and changes in your head position. Abnormal rhythmic eye movements ( nystagmus) almost always accompany vertigo. Causes of vertigo may include: Benign paroxysmal positional vertigo (BPPV). BPPV involves intense, brief episodes of vertigo associated with a change in the position of your head, often when you turn over in bed or sit up in the morning. It occurs when normal calcium carbonate crystals (otoconia) break loose and fall into the wrong part of the canals in your inner ear. When these particles shift, they stimulate sensors in your ear, producing an episode of vertigo. Doctors don't know what causes BPPV, but it may be a natural result of aging. Trauma to your head also may lead to BPPV. Inflammation in the inner ear. Signs and symptoms of inflammation of the inner ear (acute vestibular neuronitis or labyrinthitis) include sudden, intense vertigo that may persist for several days, with nausea and vomiting. It can be incapacitating, requiring bed rest to minimize the signs and symptoms. Fortunately, vestibular neuronitis generally subsides and clears up on its own. Recovery time may be shorter with vestibular rehabilitation exercises. Although the cause of this condition is unknown, it may be a viral infection. Meniere's disease. This disease involves the excessive buildup of fluid in your inner ear. It may affect adults at any age and is characterized by sudden episodes of vertigo lasting 30 minutes to an hour or longer. Other signs and symptoms include the feeling of fullness in your ear, buzzing or ringing in your ear (tinnitus), and fluctuating hearing loss. The cause of Meniere's disease is unknown. Vestibular migraine. People who experience a vestibular migraine are very sensitive to motion. Dizziness and vertigo caused by a vestibular migraine may be triggered by turning your head quickly, being in a crowded or confusing place , driving or riding in a vehicle, or even watching movement on TV. A vestibular migraine may cause feelings of imbalance or unsteadiness, hearing loss, "muffled " hearing, or ringing in your ears (tinnitus). For most people with a vestibular migraine, vertigo doesn't necessarily happen at the same time as the headache. Instead, typical migraine triggers may lead to vertigo without an actual migraine. Attacks of migrainous vertigo can last from a few minutes to several days. Acoustic neuroma. An acoustic neuroma (schwannoma) is a noncancerous (benign ) growth on the acoustic nerve, which connects the inner ear to your brain. Signs and symptoms of an acoustic neuroma may include dizziness, loss of balance , hearing loss and tinnitus. Rapid changes in motion. Riding on roller coasters or in boats, cars or even airplanes may on occasion make you dizzy. Other causes. Rarely, vertigo can be a symptom of a more serious neurological problem such as a stroke, brain hemorrhage or multiple sclerosis. Feeling of faintness (presyncope) "Presyncope" is the medical term for feeling faint and lightheaded without losing consciousness. Sometimes nausea, pale skin and a sense of dizziness accompany a feeling of faintness. Causes of presyncope include: Drop in blood pressure (orthostatic hypotension). A dramatic drop in your systolic blood pressure - the higher number in your blood pressure reading - may result in lightheadedness or a feeling of faintness. It can occur after sitting up or standing too quickly. Inadequate output of blood from the heart. Conditions such as partially blocked arteries (atherosclerosis), disease of the heart muscle (cardiomyopathy) , abnormal heart rhythm (arrhythmia) or a decrease in blood volume may cause inadequate blood flow from your heart. Loss of balance (disequilibrium) Disequilibrium is the loss of balance or the feeling of unsteadiness when you walk. Causes may include: Inner ear (vestibular) problems. Abnormalities with your inner ear can cause you to feel like you are floating, have a heavy head or are unsteady in the dark. Sensory disorders. Failing vision and nerve damage in your legs (peripheral neuropathy) are common in older adultsand may result in difficulty maintaining your balance. Joint and muscle problems. Muscle weakness and osteoarthritis - the type of arthritis that involves wear and tear of your joints - can contribute to loss of balance when it involves your weight-bearing joints. Medications. Loss of balance can be a side effect of certain medications, such as anti-seizure drugs, sedatives and tranquilizers. Lightheadedness and other kinds of 'dizziness' Feeling lightheaded is the feeling of being "spaced out" or having the sensation of spinning inside your head. It can also give you the sensation that if your lightheadedness worsens, you might lose consciousness. Causes may include: Inner ear disorders. These abnormalities of your inner ear can lead to illusions of motion and make you feel like you're floating. Anxiety disorders. Certain anxiety disorders, such as panic attacks and a fear of leaving home or being in large, open spaces (agoraphobia), may cause lightheadedness. Hyperventilation. Abnormally rapid breathing that often accompanies anxiety disorders may make you feel lightheaded. Follow-up with your primary care physician for evaluation in 3-4 days return for increasing worsening or new symptoms Scribe Attestation: 07/10/17 02:40 I personally performed the services described in the documentation, reviewed and edited the documentation which was dictated to my scribe in my presence, and it accurately records my words and actions. (LISA PELAEZ) Scribe Documentation - Scribe Written by Scribe:: Bhavani Malin 07/10/2017 1:20 acting as scribe for :: Andrei <ALEXANDRIA FARRIS - Last Filed: 07/10/17 01:14>
[2017-07-10 00:44] LABS: ABSOLUTE BASOPHILS # (AUTO) 0.1 10^3/uL (0.0-0.2); ABSOLUTE EOSINOPHILS # (AUTO) 0.1 10^3/uL (0.0-0.6); ABSOLUTE LYMPHOCYTES (AUTO) 2.9 10^3/uL (0.5-4.7); ABSOLUTE MONOCYTES (AUTO) 0.6 10^3/uL (0.1-1.4); ABSOLUTE NEUT (AUTO) 5.3 10^3/uL (1.7-8.2); BASOPHILS % (AUTO) 0.7 % (0-2); EOSINOPHILS % (AUTO) 1.5 % (0-6); HEMATOCRIT 40.3 % (36.0-47.0); HEMOGLOBIN 13.9 g/dL (12.0-15.5); HGB HCT DIFFERENCE 1.4; LYMPHOCYTES % (AUTO) 32.2 % (13-45); MEAN CORPUSCULAR HEMOGLOBIN 34.8 pg (27.0-33.4); MEAN CORPUSCULAR HGB CONC 34.4 g/dL (32.0-36.0); MEAN CORPUSCULAR VOLUME 101 fl (80-97); MONOCYTES % (AUTO) 6.3 % (3-13); RED BLOOD COUNT 3.99 10^6/uL (3.72-5.28); RED CELL DISTRIBUTION WIDTH 13.3 % (11.5-14.0); SEGMENTED NEUTROPHILS % (AUTO) 59.3 % (42-78); WHITE BLOOD COUNT 8.9 10^3/uL (4.0-10.5)
[2017-07-10 00:47] LABS: APPEARANCE,URINE CLEAR; BILIRUBIN,URINE NEGATIVE (NEGATIVE); GLUCOSE, URINE NEGATIVE (NEGATIVE); KETONES,URINE NEGATIVE (NEGATIVE); LEUKOCYTE ESTERASE,URINE NEGATIVE (NEGATIVE); NITRITE,URINE NEGATIVE (NEGATIVE); PROTEIN,URINE NEGATIVE (NEGATIVE); URINE SPECIFIC GRAVITY 1.023
[2017-07-10 00:55] LABS: ANION GAP 7 (5-19); BLOOD UREA NITROGEN 12 mg/dL (7-20); CALCIUM 9.6 mg/dL (8.4-10.2); CARBON DIOXIDE 28 mmol/L (22-30); CHLORIDE 103 mmol/L (98-107); CREATININE RESULT 0.75 mg/dL (0.52-1.25); GLUCOSE 111 mg/dL (75-110); POTASSIUM 3.7 mmol/L (3.6-5.0); SODIUM 138.1 mmol/L (137-145)
--- NOTE | 2017-07-10 01:12 | RADIOLOGY REPORT (SQ) ---
EXAM DESCRIPTION: CT HEAD WITHOUT COMPLETED DATE/TIME: 07/10/2017 12:43 am REASON FOR STUDY: headache dizziness COMPARISON: None. TECHNIQUE: Axial images acquired through the brain without intravenous contrast. Images reviewed wi th bone, brain and subdural windows. Images stored on PACS. All CT scanners at this facility use dose modulation, iterative reconstruction, and/or weight based d osing when appropriate to reduce radiation dose to as low as reasonably achievable (ALARA). [facility]: Dose Right [facility]: CareDose [facility]: Dose Right [facility]: Teradose 4D [facility]: Smart Leveler RADIATION DOSE: Up-to-date CT equipment and radiation dose reduction techniques were employed. CTDIv ol: 64.6 mGy. DLP: 1163 mGy-cm. mGy. LIMITATIONS: None. FINDINGS: VENTRICLES: Normal size and contour. CEREBRUM: No masses. No hemorrhage. No midline shift. Normal king/white matter differentiation. N o evidence for acute infarction. CEREBELLUM: No masses. No hemorrhage. No alteration of density. No evidence for acute infarction. EXTRAAXIAL SPACES: No fluid collections. No masses. ORBITS AND GLOBE: No intra- or extraconal masses. Normal contour of globe without masses. CALVARIUM: No fracture. PARANASAL SINUSES: No fluid or mucosal thickening. SOFT TISSUES: No mass or hematoma. OTHER: No other significant finding. IMPRESSION: NORMAL BRAIN CT WITHOUT CONTRAST. TECHNICAL DOCUMENTATION: JOB ID: [id number] Quality ID # [id number]: Final reports with documentation of one or more dose reduction techniques (e.g., Au tomated exposure control, adjustment of the mA and/or kV according to patient size, use of iterative reconstruction technique) 2010 [employer]- All Rights Reserved
== END 2017-07-10 02:44 | disposition home or self-care (01) ==
LOC: ER 23:17
DX: R42 Dizziness and giddiness (principal); R51 Headache; I10 Essential (primary) hypertension; Z86.14 Personal history of Methicillin resistant Staphylococcus aureus infection; Z88.3 Allergy status to other anti-infective agents
CPT/HCPCS: 36415; 70450; 80048; 81001; 81025; 85025; 99284

== ENCOUNTER 2017-08-25 23:02 | Emergency (ER) | payer MEDICAID ==
[2017-08-26] MEDS ORDERED: SULFAMETHOXAZOLE/TRIMETHOPRIM 800-160 MG TABLET PO ONE (00:20)
--- NOTE | 2017-08-26 00:23 | ER Document Report ---
HPI - HPI Patient complains to provider of: breast lump Onset: Other Onset/Duration: Gradual, Better - Several days Pain Level: 3 Context: 31-year-old female complaining of a lump between her 2 breasts that has been there for several days but it is getting smaller. She has previous abscess was incised in the past. She does not want this cut. No fever. Associated Symptoms: None Exacerbated by: Movement Relieved by: Denies Similar symptoms previously: Yes Recently seen / treated by doctor: No - ROS ROS below otherwise negative: Yes Systems Reviewed and Negative: Yes All other systems reviewed and negative - REPRODUCTIVE Reproductive: DENIES: : - DERM Skin Color: Normal Past Medical History - General Information source: Patient - Social History Smoking Status: Current Every Day Smoker Chew tobacco use (# tins/day): No Frequency of alcohol use: None Drug Abuse: None Lives with: Family Family History: Hypertension, Other Patient has suicidal ideation: No Patient has homicidal ideation: No - Past Medical History Cardiac Medical History: Reports: Hx Hypertension Endocrine Medical History: Reports: Hx HypothyroidismComment Only: Hx Diabetes Mellitus Type 2 - Borderline in the past. Renal/ Medical History: Denies: Hx Peritoneal Dialysis Musculoskeltal Medical History: Reports Hx Musculoskeletal Deformity Skin Medical History: Reports Hx Cellulitis, Reports Hx MRSA Psychiatric Medical History: Reports: Hx Anxiety, Hx Depression - AND ANXIETY Infectious Medical History: Reports: Hx MRSA Past Surgical History: Reports: Hx Breast Surgery - Right breast abscess incision and drainage, Hx Section - Immunizations Immunizations up to date: Yes Hx Diphtheria, Pertussis, Tetanus Vaccination: Yes - 2015 Vertical Provider Document - CONSTITUTIONAL Agree With Documented VS: Yes Exam Limitations: No Limitations General Appearance: No Apparent Distress - INFECTION CONTROL TRAVEL OUTSIDE OF THE [place] IN LAST 30 DAYS: No - HEENT HEENT: Normocephalic - NECK Neck: Supple - RESPIRATORY Respiratory: Breath Sounds Normal, No Respiratory Distress - CARDIOVASCULAR Cardiovascular: Regular Rate, Regular Rhythm - MUSCULOSKELETAL/EXTREMETIES Musculoskeletal/Extremeties: SANTIAGO ARANDA - NEURO Level of Consciousness: Awake, Alert - DERM Integumentary: Abscess - tender with central flucuation, not red, tender 2 cm total induration between both breasts Adult Front & Back Diagram: 1 - abscess location Course - Re-evaluation Re-evalutation: 08/26/17 00:19 pt does not want the abscess incised, since it is getting smaller, wants antibiotics and heat. Will return if gets larger etc. - Vital Signs Vital signs: Temp Pulse Resp BP Pulse Ox 18 08/25/17 23:14 Discharge - Discharge Clinical Impression: left chest wall abscess Condition: Good Disposition: HOME, SELF-CARE Instructions: Use of [id number] Ibuprofen ([facility]), Trimethoprim-Sulfa ([facility]) , Warm Packs ([facility]) Additional Instructions: warm compress return to the ER if it gets bigger, red, hot, fever finish the antibiotics Prescriptions: Sulfamethoxazole/Trimethoprim [Sulfamethoxazole-Tmp Ds Tablet] 1 each PO BID # 14 tablet Forms: Return to Work
[2017-08-26 00:50] VITALS: BP 138/80
== END 2017-08-26 00:36 | disposition home or self-care (01) ==
LOC: ER 23:02
DX: L02.213 Cutaneous abscess of chest wall (principal); F17.200 Nicotine dependence, unspecified, uncomplicated; I10 Essential (primary) hypertension; E03.9 Hypothyroidism, unspecified; E11.9 Type 2 diabetes mellitus without complications; Z86.14 Personal history of Methicillin resistant Staphylococcus aureus infection
CPT/HCPCS: 99283; J3490

== ENCOUNTER 2017-09-13 21:12 | Emergency (ER) | payer MEDICAID ==
[2017-09-13] MEDS ORDERED: ONDANSETRON 4 MG TAB.RAPDIS PO ONE (23:17)
[2017-09-13] MEDS ORDERED: LOPERAMIDE HCL 2 MG CAPSULE PO ONE (23:17)
[2017-09-13] MEDS ORDERED: ACETAMINOPHEN 325 MG TABLET PO ONE (23:17)
--- NOTE | 2017-09-13 23:25 | ER Document Report ---
ED General - General Chief Complaint: Flu Symptoms Stated Complaint: FEVER Time Seen by Provider: 09/13/17 22:12 Notes: Patient is a 31-year-old female with a past medical history of obesity and hypertension who presents with a multitude of complaints including nausea, diarrhea, and feeling generally unwell for the past 24 hours. Multiple sick contacts. She has not tried any to improve her symptoms. She has not noted anything worsens her symptoms. She denies any headache, neck pain, shortness of breath, fever, vomiting, or syncope. She has not seen her primary care doctor regarding these concerns. She denies any focal abdominal pain. Denies a recent history of similar symptoms. TRAVEL OUTSIDE OF THE [place] IN LAST 30 DAYS: No - Related Data Allergies/Adverse Reactions: clindamycin [Clindamycin] Allergy (Verified 08/25/17 23:08) Swelling of hands and/or feet Past Medical History - General Information source: Patient - Social History Smoking Status: Never Smoker Frequency of alcohol use: None Drug Abuse: None Lives with: Spouse/Significant other Family History: Hypertension, Other Patient has suicidal ideation: No Patient has homicidal ideation: No - Past Medical History Cardiac Medical History: Reports: Hx Hypertension Denies: Hx Congestive Heart Failure, Hx Coronary Artery Disease, Hx Heart Attack Endocrine Medical History: Reports: Hx Hypothyroidism. Denies: Hx Diabetes Mellitus Type 1. 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 Renal/ Medical History: Denies: Hx Peritoneal Dialysis Musculoskeltal Medical History: Reports Hx Musculoskeletal Deformity Skin Medical History: Reports Hx Cellulitis, Reports Hx MRSA Psychiatric Medical History: Reports: Hx Anxiety, Hx Depression - AND ANXIETY Infectious Medical History: Reports: Hx MRSA Past Surgical History: Reports: Hx Breast Surgery - Right breast abscess incision and drainage, Hx Section - Immunizations Immunizations up to date: Yes Hx Diphtheria, Pertussis, Tetanus Vaccination: Yes - 2014 Review of Systems - Review of Systems Notes: Constitutional: Negative for fever. HENT: Negative for sore throat. Eyes: Negative for visual changes. Cardiovascular: Negative for chest pain. Respiratory: Negative for shortness of breath. Gastrointestinal: Negative for abdominal pain, positive for nausea and diarrhea Genitourinary: Negative for dysuria. Musculoskeletal: Negative for back pain. Skin: Negative for rash. Neurological: Negative for headaches, weakness or numbness. 10 point ROS negative except as marked above and in HPI. Physical Exam - Vital signs Vitals: Temp Pulse Resp BP Pulse Ox 98.7 F 64 18 147/92 H 100 09/13/17 21:45 09/13/17 21:45 09/13/17 21:45 09/13/17 21:45 09/13/17 21:45 Interpretation: Hypertensive Notes: PHYSICAL EXAMINATION: GENERAL: Well-appearing, well-nourished and in no acute distress. HEAD: Atraumatic, normocephalic. EYES: Pupils equal round and reactive to light, extraocular movements intact, sclera anicteric, conjunctiva are normal. ENT: nares patent, oropharynx clear without exudates. Moist mucous membranes. NECK: Normal range of motion, supple without lymphadenopathy LUNGS: Breath sounds clear to auscultation bilaterally and equal. No wheezes rales or rhonchi. HEART: Regular rate and rhythm without murmurs ABDOMEN: Soft, nontender, normoactive bowel sounds. No guarding, no rebound. No masses appreciated. EXTREMITIES: Normal range of motion, no pitting or edema. No cyanosis. NEUROLOGICAL: No focal neurological deficits. Moves all extremities spontaneously and on command. PSYCH: Normal mood, normal affect. SKIN: Warm, Dry, normal turgor, no rashes or lesions noted. Course - Re-evaluation Re-evalutation: 09/13/17 23:18 Patient presents with complaints of nausea, diarrhea, and feeling like she has a fever. She has not recorded a fever at home and does not have a fever here. She has not had any vomiting. She denies any abdominal pain and has no focal abdominal tenderness on examination. She does not appear clinically dehydrated and is not tachycardic or hypertensive. She denies any dysuria. Multiple sick contacts of the same presentation. She has tolerated oral fluids here in the emergency room without any difficulty. I do not see an indication for labs or imaging as I do not suspect an acute appendicitis, ovarian pathology, pyelonephritis, nephrolithiasis, acute pancreatitis, or biliary pathology based on the absence of any abdominal pain, no focal abdominal tenderness on examination, her ability to tolerate oral intake without difficulty, and her report of absence of any dysuria, hematuria, vaginal bleeding or discharge. She notes significant improvement of her nausea here in the emergency department after receiving ondansetron. At this time will discharge with return precautions and follow-up recommendations. Verbal discharge instructions given a the bedside and opportunity for questions given. Medication warnings reviewed. Patient is in agreement with this plan and has verbalized understanding of return precautions and the need for primary care follow-up in the next 24-72 hours. - Vital Signs Vital signs: Temp Pulse Resp BP Pulse Ox 98.5 F 89 18 135/89 H 98 09/13/17 22:50 09/13/17 23:45 09/13/17 23:45 09/13/17 23:45 09/13/17 23:45 Discharge - Discharge Clinical Impression: Nausea Diarrhea Qualifiers: Diarrhea type: unspecified type Qualified Code(s): R19.7 - Diarrhea, unspecified Condition: Stable Disposition: HOME, SELF-CARE Additional Instructions: Adult gastric discharge Your symptoms are likely due to a viral illness and should resolve in the next several days. You can take [id number] loperamide also known as Imodium as needed for diarrhea per box instructions. Continue to stay hydrated with plenty of solution such as Gatorade or Pedialyte. You are being prescribed Zofran to take as needed for nausea and vomiting. Please return if you develop severe abdominal pain, pass out, become unable to tolerate any oral fluids for 12 more hours, or any other symptoms that are concerning to you. Referrals: MCKENZIE HOU, [Primary Care Provider] - Follow up as needed
[2017-09-13] MEDS ORDERED: ONDANSETRON ODT 4 MG TAB (6 TAB/DSPK) PO PRN (23:26)
[2017-09-13 23:45] VITALS: BP 135/89
== END 2017-09-13 23:45 | disposition home or self-care (01) ==
LOC: ER 21:12
DX: R11.0 Nausea (principal); R19.7 Diarrhea, unspecified; I10 Essential (primary) hypertension; Z88.1 Allergy status to other antibiotic agents; Z86.14 Personal history of Methicillin resistant Staphylococcus aureus infection
CPT/HCPCS: 99283; J3490 ×2; S0119

== ENCOUNTER 2017-12-08 13:37 | Emergency (ER) | payer MEDICAID ==
[2017-12-08] MEDS ORDERED: ASPIRIN 325 MG TABLET PO ONE (14:08)
--- NOTE | 2017-12-08 14:13 | ER Document Report ---
ED Medical Screen (RME) - General Chief Complaint: Chest Pain Stated Complaint: CHEST PAIN Time Seen by Provider: 12/08/17 14:08 Mode of Arrival: Ambulatory Information source: Patient TRAVEL OUTSIDE OF THE [place] IN LAST 30 DAYS: No - HPI Patient complains to provider of: cp Onset: Yesterday - pt with onset of CP late yesterday and woke up with it this am. Has not taken ASA yet - Related Data Allergies/Adverse Reactions: clindamycin [Clindamycin] Allergy (Verified 08/25/17 23:08) Swelling of hands and/or feet Past Medical History - Social History Family history: Reviewed & Not Pertinent - Past Medical History Cardiac Medical History: Reports: Hx Hypertension Denies: Hx Congestive Heart Failure, Hx Coronary Artery Disease, Hx Heart Attack Endocrine Medical History: Reports: Hx Hypothyroidism. Denies: Hx Diabetes Mellitus Type 1. 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 Renal/ Medical History: Denies: Hx Peritoneal Dialysis Musculoskeltal Medical History: Reports Hx Musculoskeletal Deformity Skin Medical History: Reports Hx Cellulitis, Reports Hx MRSA Psychiatric Medical History: Reports: Hx Anxiety, Hx Depression - AND ANXIETY Infectious Medical History: Reports: Hx MRSA Past Surgical History: Reports: Hx Breast Surgery - Right breast abscess incision and drainage, Hx Section - Immunizations Immunizations up to date: Yes Hx Diphtheria, Pertussis, Tetanus Vaccination: Yes - 2014 History of Influenza Vaccine for 08/2017 - 01/2018 Season: No Physical Exam - Vital signs Vitals: Temp Pulse Resp BP Pulse Ox 98.5 F 82 18 150/94 H 97 12/08/17 13:59 12/08/17 13:59 12/08/17 13:59 12/08/17 13:59 12/08/17 13:59 Course - Vital Signs Vital signs: Temp Pulse Resp BP Pulse Ox 98.5 F 82 18 150/94 H 97 12/08/17 13:59 12/08/17 13:59 12/08/17 13:59 12/08/17 13:59 12/08/17 13:59
--- NOTE | 2017-12-08 14:54 | ER Document Report ---
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 Also has headache for several hours, left frontal- "mild-light" New cough yesterday and today. Non productive. 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 Merina IUD, no hx PE. Hx long time ago of chest pain. No hx asthma or heart trouble. FH: mom of stroke at 49, HTN. No chest pain at this time. Had some in PIT waiting. TRAVEL OUTSIDE OF THE [place] IN LAST 30 DAYS: No - Related Data Allergies/Adverse Reactions: clindamycin [Clindamycin] Allergy (Verified 08/25/17 23:08) Swelling of hands and/or feet Past Medical History - General Information source: Patient - Social History Smoking Status: Former Smoker Frequency of alcohol use: None Drug Abuse: None Family History: Hypertension, Other Patient has suicidal ideation: No Patient has homicidal ideation: No - Past Medical History Cardiac Medical History: Reports: Hx Hypertension Denies: Hx Congestive Heart Failure, Hx Coronary Artery Disease, Hx Heart Attack Endocrine Medical History: Reports: Hx Hypothyroidism. Denies: Hx Diabetes Mellitus Type 1. 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 Renal/ Medical History: Denies: Hx Peritoneal Dialysis Musculoskeltal Medical History: Reports Hx Musculoskeletal Deformity Skin Medical History: Reports Hx Cellulitis, Reports Hx MRSA Psychiatric Medical History: Reports: Hx Anxiety, Hx Depression - AND ANXIETY Infectious Medical History: Reports: Hx MRSA Past Surgical History: Reports: Hx Breast Surgery - Right breast abscess incision and drainage, Hx Section - Immunizations Immunizations up to date: Yes Hx Diphtheria, Pertussis, Tetanus Vaccination: Yes - 2014 Review of Systems - Review of Systems Constitutional: No symptoms reported EENT: No symptoms reported Cardiovascular: See HPI Respiratory: See HPI, Cough Gastrointestinal: No symptoms reported Genitourinary: No symptoms reported Female Genitourinary: No symptoms reported Musculoskeletal: No symptoms reported Skin: No symptoms reported Hematologic/Lymphatic: No symptoms reported Neurological/Psychological: No symptoms reported Physical Exam - Vital signs Vitals: Temp Pulse Resp BP Pulse Ox 98.5 F 82 18 150/94 H 97 12/08/17 13:59 12/08/17 13:59 12/08/17 13:59 12/08/17 13:59 12/08/17 13:59 Interpretation: Normal - General General appearance: Appears well, Alert In distress: None - HEENT Head: Normocephalic, Atraumatic Eyes: Normal Pupils: PERRL Neck: Supple. No: Lymphadenopathy - Respiratory Respiratory status: No respiratory distress Chest status: Tender - left upper chest wall under the mid clavicle Breath sounds: Normal Chest palpation: Normal - Cardiovascular Rhythm: Regular Heart sounds: Normal auscultation Murmur: No - Abdominal Inspection: Normal Distension: No distension Bowel sounds: Normal Tenderness: Nontender Organomegaly: No organomegaly - Back Back: Normal, Nontender - Extremities General upper extremity: Normal inspection, Nontender, Normal color, Normal ROM , Normal temperature General lower extremity: Normal inspection, Nontender, Normal color, Normal ROM , Normal temperature, Normal weight bearing. No: Jose Alfredo's sign - Neurological Neuro grossly intact: Yes Cognition: Normal Orientation: AAOx4 Noah Coma Scale Eye Opening: Spontaneous Wagram Coma Scale Verbal: Oriented Noah Coma Scale Motor: Obeys Commands Wagram Coma Scale Total: 15 Speech: Normal Motor strength normal: LUE, RUE, LLE, RLE Sensory: Normal - Psychological Associated symptoms: Normal affect, Normal mood - Skin Skin Temperature: Warm Skin Moisture: Dry Skin Color: Normal Skin irregularity: negative: Rash Course - Re-evaluation Re-evalutation: 12/08/17 16:23 labs, chest xray are negative. 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 wong at [facility] tomorrow for recheck to er if worsening symptoms daily 81mg aspirin Forms: Return to Work Referrals: DESMOND WONG FNP [NURSE PRACTITIONER] - Follow up as needed
--- NOTE | 2017-12-08 15:14 | EKG REPORT ---
SEVERITY:- NORMAL ECG - SINUS RHYTHM : Confirmed by: Paulino Manzo MD 08-Dec-2017 15:13:36
--- NOTE | 2017-12-08 15:19 | RADIOLOGY REPORT (SQ) ---
EXAM DESCRIPTION: CHEST PA/LAT COMPLETED DATE/TIME: 12/08/2017 3:03 pm REASON FOR STUDY: Chest pain. COMPARISON: Chest x-ray 02/28/2017. EXAM PARAMETERS: NUMBER OF VIEWS: two views TECHNIQUE: Digital Frontal and Lateral radiographic views of the chest acquired. RADIATION DOSE: NA LIMITATIONS: none FINDINGS: LUNGS AND PLEURA: No consolidation, pneumothorax or pleural effusion. MEDIASTINUM AND HILAR STRUCTURES: No masses or contour abnormalities. HEART AND VASCULAR STRUCTURES: Heart normal size. No evidence for failure. BONES: No acute findings. HARDWARE: None in the chest. IMPRESSION: No acute radiographic finding in the chest. TECHNICAL DOCUMENTATION: JOB ID: [id number] 2010 [employer]- All Rights Reserved
[2017-12-08 15:22] LABS: ABSOLUTE BASOPHILS # (AUTO) 0.1 10^3/uL (0.0-0.2); ABSOLUTE EOSINOPHILS # (AUTO) 0.1 10^3/uL (0.0-0.6); ABSOLUTE LYMPHOCYTES (AUTO) 2.5 10^3/uL (0.5-4.7); ABSOLUTE MONOCYTES (AUTO) 0.5 10^3/uL (0.1-1.4); ABSOLUTE NEUT (AUTO) 4.1 10^3/uL (1.7-8.2); BASOPHILS % (AUTO) 0.7 % (0-2); EOSINOPHILS % (AUTO) 1.8 % (0-6); HEMATOCRIT 40.8 % (36.0-47.0); HEMOGLOBIN 14.2 g/dL (12.0-15.5); LYMPHOCYTES % (AUTO) 34.6 % (13-45); MEAN CORPUSCULAR HEMOGLOBIN 34.3 pg (27.0-33.4); MEAN CORPUSCULAR HGB CONC 34.8 g/dL (32.0-36.0); MEAN CORPUSCULAR VOLUME 99 fl (80-97); PLATELET COUNT 319 10^3/uL (150-450); RED BLOOD COUNT 4.14 10^6/uL (3.72-5.28); RED CELL DISTRIBUTION WIDTH 13.9 % (11.5-14.0); SEGMENTED NEUTROPHILS % (AUTO) 55.9 % (42-78); TOTAL CELLS COUNTED % (AUTO) 100 %; WHITE BLOOD COUNT 7.3 10^3/uL (4.0-10.5)
[2017-12-08 15:25] LABS: ALANINE AMINOTRANSFERASE 29 U/L (9-52); ALBUMIN 4.1 g/dL (3.5-5.0); ALKALINE PHOSPHATASE 67 U/L (38-126); ANION GAP 9 (5-19); ASPARTATE AMINO TRANSFERASE 19 U/L (14-36); BILIRUBIN,DIRECT 0.4 mg/dL (0.0-0.4); BILIRUBIN,TOTAL 0.6 mg/dL (0.2-1.3); BLOOD UREA NITROGEN 14 mg/dL (7-20); CALCIUM 9.8 mg/dL (8.4-10.2); CARBON DIOXIDE 27 mmol/L (22-30); CHLORIDE 103 mmol/L (98-107); CREATINE KINASE 104 U/L (30-135); GLUCOSE 86 mg/dL (75-110); POTASSIUM 4.1 mmol/L (3.6-5.0); SODIUM 138.7 mmol/L (137-145); TOTAL PROTEIN 7.3 g/dL (6.3-8.2)
[2017-12-08 15:36] LABS: CREATINE KINASE MB 0.22 ng/mL (<4.55); TROPONIN I < 0.012 ng/mL
[2017-12-08 17:12] VITALS: BP 129/73
== END 2017-12-08 17:11 | disposition home or self-care (01) ==
LOC: ER 13:37
DX: R07.9 Chest pain, unspecified (principal); R51 Headache; I10 Essential (primary) hypertension; E03.9 Hypothyroidism, unspecified; Z88.3 Allergy status to other anti-infective agents; Z87.891 Personal history of nicotine dependence; Z97.5 Presence of (intrauterine) contraceptive device; Z86.14 Personal history of Methicillin resistant Staphylococcus aureus infection
CPT/HCPCS: 36415; 71046; 80053; 82550; 82553; 84484; 85025; 93005; 93010; 99285

== ENCOUNTER 2018-03-20 16:09 | Emergency (ER) | payer MEDICAID ==
--- NOTE | 2018-03-20 17:04 | ER Document Report ---
ED General - General Chief Complaint: Feet Swelling Stated Complaint: SWOLLEN FEET Time Seen by Provider: 03/20/18 16:57 Notes: 32-year-old female here with complaints of bilateral foot swelling ongoing since yesterday. She has had this once before and elevated her feet and the swelling went away. She denies any chest pain shortness of breath. She has been eating drinking urinating defecating per usual. Denies any calf or thigh swelling. No prior history of DVT. No prior history of renal failure. TRAVEL OUTSIDE OF THE [place] IN LAST 30 DAYS: No - Related Data Allergies/Adverse Reactions: clindamycin [Clindamycin] Allergy (Verified 03/05/18 13:37) Swelling of hands and/or feet Past Medical History - Social History Smoking Status: Unknown if Ever Smoked Family History: Hypertension, Other - Past Medical History Cardiac Medical History: Reports: Hx Hypertension Denies: Hx Congestive Heart Failure, Hx Coronary Artery Disease, Hx Heart Attack Endocrine Medical History: Reports: Hx Hypothyroidism. Denies: Hx Diabetes Mellitus Type 1. 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 Renal/ Medical History: Denies: Hx Peritoneal Dialysis Musculoskeltal Medical History: Reports Hx Musculoskeletal Deformity Skin Medical History: Reports Hx Cellulitis, Reports Hx MRSA Psychiatric Medical History: Reports: Hx Anxiety, Hx Depression - AND ANXIETY Infectious Medical History: Reports: Hx MRSA Past Surgical History: Reports: Hx Breast Surgery - Right breast abscess incision and drainage, Hx Section - Immunizations Immunizations up to date: Yes Hx Diphtheria, Pertussis, Tetanus Vaccination: Yes - 2014 Review of Systems - Review of Systems Notes: See history of present illness for pertinent positive review of systems; otherwise all review of systems have been reviewed and are negative Physical Exam - Vital signs Vitals: Temp Pulse Resp BP Pulse Ox 99.5 F 93 16 157/96 H 98 03/20/18 16:12 03/20/18 16:12 03/20/18 16:12 03/20/18 16:12 03/20/18 16:12 - Notes Notes: PHYSICAL EXAMINATION: GENERAL: Well-appearing and in no acute distress. HEAD: Atraumatic, normocephalic. EYES: Pupils equal round and reactive to light, extraocular movements intact, sclera anicteric, conjunctiva are normal. ENT: nares patent, oropharynx clear without exudates. Moist mucous membranes. NECK: Normal range of motion, supple without lymphadenopathy LUNGS: CTAB and equal. No wheezes rales or rhonchi. HEART: Regular rate and rhythm without murmurs ABDOMEN: Soft, no tenderness. No facial grimacing/wincing upon palpation. No guarding, no rebound. EXTREMITIES: Normal range of motion, no appreciable edema of the feet. No pitting edema. No cyanosis. NEUROLOGICAL: Cranial nerves grossly intact. Normal sensory/motor exams. PSYCH: Normal mood, normal affect. SKIN: Warm, Dry, normal turgor, no rashes or lesions noted Course - Re-evaluation Re-evalutation: 03/20/18 18:31 MEDICAL DECISION MAKING: Concern for kidney failure versus electrolyte imbalance versus venous insufficiency BMP unremarkable with normal creatinine I suspect she may have some venous insufficiency Instructed follow-up PCP next day or few Patient understands and agrees to the plan of care - Vital Signs Vital signs: Temp Pulse Resp BP Pulse Ox 99.5 F 93 16 157/96 H 98 03/20/18 16:12 03/20/18 16:12 03/20/18 16:12 03/20/18 16:12 03/20/18 16:12 - Laboratory Result Diagrams: 03/20/18 17:30 Laboratory results interpreted by me: 03/20/18 17:30 Glucose 133 H Discharge - Discharge Clinical Impression: Bilateral swelling of feet Condition: Good Disposition: HOME, SELF-CARE Additional Instructions: You were seen in the emergency department at [facility]. Blood work did not show any emergency findings. Please followup with your primary physician in the next few days for further management/evaluation. Please return to the emergency department for worsening of symptoms or any symptom that you deem to be concerning or life-threatening. Thank you for allowing us to be part of your care.
[2018-03-20 18:06] LABS: ANION GAP 12 (5-19); BLOOD UREA NITROGEN 13 mg/dL (7-20); CALCIUM 9.5 mg/dL (8.4-10.2); CARBON DIOXIDE 27 mmol/L (22-30); CHLORIDE 102 mmol/L (98-107); GLUCOSE 133 mg/dL (75-110); POTASSIUM 3.6 mmol/L (3.6-5.0); SODIUM 141.4 mmol/L (137-145)
[2018-03-20 18:38] VITALS: BP 144/96
== END 2018-03-20 18:36 | disposition home or self-care (01) ==
LOC: ER 16:09
DX: M79.89 Other specified soft tissue disorders (principal); I10 Essential (primary) hypertension
CPT/HCPCS: 36415; 80048; 99283

== ENCOUNTER 2018-08-21 17:41 | Emergency (ER) | payer MEDICAID ==
[2018-08-21 17:54] VITALS: BP 139/94
== END 2018-08-21 18:35 | disposition left against medical advice (07) ==
LOC: ER 17:41
DX: Z53.21 Procedure and treatment not carried out due to patient leaving prior to being seen by health care provider (principal)

== ENCOUNTER 2018-08-24 10:02 | Emergency (ER) | payer MEDICAID ==
--- NOTE | 2018-08-24 10:35 | ER Document Report ---
ED Respiratory Problem - General Chief Complaint: Shortness Of Breath Stated Complaint: SHORTNESS OF BREATH Time Seen by Provider: 08/24/18 10:20 Mode of Arrival: Ambulatory Information source: Patient Notes: Patient is a 32-year-old obese female comes emergency room with a 2-day onset of increasing shortness of breath. Patient states that she actually feels better and can breathe when she has a peppermint in her mouth. Patient came to emergency room on 08/21/2018 but left without being seen. She denies congestion runny nose but says she has a cough. The cough increases when she lays down. She has a history of hypertension and is taking lisinopril and atenolol. She denies any swelling in the lower extremities. She denies any history of asthma in the past. She denies any fevers. TRAVEL OUTSIDE OF THE [place] IN LAST 30 DAYS: No - HPI Patient complains to provider of: Short of breath Onset: Other - 2 days Duration: Continuous, Worse/persistent Initiating Event: URI Severity: Moderate Short of Breath: Mild Chest pain/discomfort: Constant Cough: Nonproductive Sputum amount: None Associated symptoms: Cough, Sinus pain/pressure, Short of breath, Wheezing Similar symptoms previously: Yes Recently seen / treated by doctor: No - Related Data Allergies/Adverse Reactions: clindamycin [Clindamycin] Allergy (Verified 08/24/18 10:03) Swelling of hands and/or feet Past Medical History - General Information source: Patient - Social History Smoking Status: Current Every Day Smoker Cigarette use (# per day): Yes - 2-4 cigarettes a day Chew tobacco use (# tins/day): No Smoking Education Provided: Yes Frequency of alcohol use: None Drug Abuse: None Lives with: Family, Spouse/Significant other Family History: Reviewed & Not Pertinent, Hypertension, Other Patient has suicidal ideation: No Patient has homicidal ideation: No - Past Medical History Cardiac Medical History: Reports: Hx Hypertension Denies: Hx Congestive Heart Failure, Hx Coronary Artery Disease, Hx Heart Attack Endocrine Medical History: Reports: Hx Hypothyroidism. Denies: Hx Diabetes Mellitus Type 1. 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 Renal/ Medical History: Denies: Hx Peritoneal Dialysis Musculoskeletal Medical History: Reports Hx Musculoskeletal Deformity Skin Medical History: Reports Hx Cellulitis, Reports Hx MRSA Psychiatric Medical History: Reports: Hx Anxiety, Hx Depression - AND ANXIETY Infectious Medical History: Reports: Hx MRSA Past Surgical History: Reports: Hx Breast Surgery - Right breast abscess incision and drainage, Hx Section - Immunizations Immunizations up to date: Yes Hx Diphtheria, Pertussis, Tetanus Vaccination: Yes - 2014 Review of Systems - Review of Systems Constitutional: No symptoms reported EENT: Nose congestion, Sinus pressure Cardiovascular: No symptoms reported Respiratory: Cough, Short of breath, Wheezing Gastrointestinal: No symptoms reported Genitourinary: No symptoms reported Female Genitourinary: No symptoms reported Musculoskeletal: No symptoms reported Skin: No symptoms reported Hematologic/Lymphatic: No symptoms reported Neurological/Psychological: No symptoms reported -: Yes All other systems reviewed and negative Physical Exam - Vital signs Vitals: Temp Pulse Resp BP Pulse Ox 97.5 F 90 16 157/106 H 98 08/24/18 10:06 08/24/18 10:06 08/24/18 10:06 08/24/18 10:06 08/24/18 10:06 Interpretation: Hypertensive - Notes Notes: Well-nourished well-developed 32-year-old obese female no apparent distress - General General appearance: Appears well, Alert - HEENT Head: Normocephalic, Atraumatic, Open wounds Ears: Normal External canal: Normal. No: Blood in canal, Cerumen impaction Tympanic membrane: Bulging, Injected. No: Hemotympanum, Loss of landmarks, Perforation, Purulent effusion, Serous effusion Sinus: Frontal, Maxillary, Swelling, Tenderness, Other - Bilateral Nasal: Clear rhinorrhea. No: Normal Mouth/Lips: Normal. No: Angioedema, Caries Mucous membranes: Normal, Moist Pharynx: Erythema, Uvular edema. No: Exudate, Retropharyngeal abscess, Tonsillar hypertrophy, Potential airway comprom. Neck: Normal, Anterior cervical chain, Posterior cervical chain, Lymphadenopathy , Supple, Other. No: Meningismus, Shotty nodes, Subcutaneous emphysema - Respiratory Respiratory status: No respiratory distress Chest status: Nontender Breath sounds: Decreased air movement, Wheezing Chest palpation: Normal - Cardiovascular Rhythm: Regular Heart sounds: Normal auscultation Murmur: No - Neurological Neuro grossly intact: Yes Cognition: Normal Orientation: AAOx4 Victoria Coma Scale Eye Opening: Spontaneous Victoria Coma Scale Verbal: Oriented Noah Coma Scale Motor: Obeys Commands Victoria Coma Scale Total: 15 Speech: Normal - Skin Skin Temperature: Warm Skin Moisture: Dry Skin Color: Normal, [place] Course - Re-evaluation Re-evalutation: 08/24/18 10:36 Patient states had 2-day onset of this congestion. Originally she denied having congestion runny nose but more get into the more she stated she has been having the congestion in the nose. On physical exam she definitely has congestion. I believe that her cough is coming from that the wheezing most likely is coming from the history of smoking along with this upper respiratory infection is causing a little mild bronchitis. Anyway and at this point I want to go ahead and treat her with a steroid taper and some Claritin. I would have her use some Flonase as well and nasal saline to keep the nose moist. You can give her a decongestant because of her history of hypertension. To note to she tells me she just took her atenolol in the waiting room so her diastolic pressure not too worried about. - Vital Signs Vital signs: Temp Pulse Resp BP Pulse Ox 97.5 F 90 16 157/106 H 98 08/24/18 10:06 08/24/18 10:06 08/24/18 10:06 08/24/18 10:06 08/24/18 10:06 Discharge - Discharge Clinical Impression: Congestion of nasal sinus, Wheezing on auscultation, Bronchitis Upper respiratory infection Qualifiers: URI type: unspecified URI Qualified Code(s): J06.9 - Acute upper respiratory infection, unspecified Condition: Stable Disposition: HOME, SELF-CARE Instructions: Upper Respiratory Illness ([facility]), Bronchitis With Bronchospasm ( Wheezing) ([facility]) Additional Instructions: Home and rest. Medications prescribed. As we discussed need to use nasal saline 3-4 times a day to keep the nose moist and secretions thin. Take medications as prescribed. As we discussed you may also at night only for bed use Afrin nasal spray 2 sprays each side of the nose to open your office he can breathe at night. Return to ER if you have any concerns or problems. Prescriptions: Fluticasone Propionate [Flonase Nasal Independence 50 Mcg/Independence 16 gm] 2 sprays NASL Q12 #1 inhaler Prednisone [Sterapred Ds] 10 mg PO ASDIR PRN #1 tab.ds.pk PRN Reason: Forms: Elevated Blood Pressure, Smoking Cessation Education, Parent Work Note, Return to Work
[2018-08-24 11:01] VITALS: BP 135/89
== END 2018-08-24 11:01 | disposition home or self-care (01) ==
LOC: ER 10:02
DX: J06.9 Acute upper respiratory infection, unspecified (principal); J40 Bronchitis, not specified as acute or chronic; R06.02 Shortness of breath; J34.89 Other specified disorders of nose and nasal sinuses; R59.0 Localized enlarged lymph nodes; R06.2 Wheezing; R09.81 Nasal congestion; F17.210 Nicotine dependence, cigarettes, uncomplicated; I10 Essential (primary) hypertension; Z79.899 Other long term (current) drug therapy; Z88.1 Allergy status to other antibiotic agents
CPT/HCPCS: 99284

== ENCOUNTER 2018-08-31 10:13 | Emergency (ER) | payer MEDICAID ==
--- NOTE | 2018-08-31 10:30 | ER Document Report ---
ED Medical Screen (RME) - General Chief Complaint: Shortness Of Breath Stated Complaint: SHORT OF BREATH Time Seen by Provider: 08/31/18 10:25 Mode of Arrival: Ambulatory Information source: Patient, [facility] Records Notes: 32-year-old female presents for the third time in 10 days with complaint of shortness of breath, cough, sensation of throat swelling. Patient denies any difficulty swallowing fluids or food. Patient was placed on prednisone and Flonase on her last visit. She states her symptoms have not improved. Patient does admit to tobacco use. I have greeted and performed a rapid initial assessment of this patient. A comprehensive ED assessment and evaluation of the patient, analysis of test results and completion of medical decision making process we will be contacted by additional ED providers. PHYSICAL EXAMINATION: Vital signs reviewed-afebrile, not hypoxic. GENERAL: Well-appearing, well-nourished and in no acute distress. LUNGS: No respiratory distress, no stridor Musculoskeletal: Normal range of motion NEUROLOGICAL: Normal speech, normal gait. TRAVEL OUTSIDE OF THE [place] IN LAST 30 DAYS: No - HPI Onset: Other Onset/Duration: Persistent Associated Symptoms: Cough (productive), Shortness of breath, Sore throat. denies: Fever Exacerbated by: Denies Relieved by: Denies Similar symptoms previously: Yes Recently seen / treated by doctor: Yes - Related Data Smoking: Cigarettes Frequency of alcohol use: None Drug Abuse: None Allergies/Adverse Reactions: clindamycin [Clindamycin] Allergy (Verified 08/24/18 10:03) Swelling of hands and/or feet Past Medical History - Social History Family history: Reviewed & Not Pertinent - Past Medical History Cardiac Medical History: Reports: Hx Hypertension Denies: Hx Congestive Heart Failure, Hx Coronary Artery Disease, Hx Heart Attack Endocrine Medical History: Reports: Hx Hypothyroidism. Denies: Hx Diabetes Mellitus Type 1. 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 Renal/ Medical History: Denies: Hx Peritoneal Dialysis Musculoskeltal Medical History: Reports Hx Musculoskeletal Deformity Skin Medical History: Reports Hx Cellulitis, Reports Hx MRSA Psychiatric Medical History: Reports: Hx Anxiety, Hx Depression - AND ANXIETY Infectious Medical History: Reports: Hx MRSA Past Surgical History: Reports: Hx Breast Surgery - Right breast abscess incision and drainage, Hx Section - Immunizations Immunizations up to date: Yes Hx Diphtheria, Pertussis, Tetanus Vaccination: Yes - 2015 History of Influenza Vaccine for 08/2017 - 01/2018 Season: No Physical Exam - Vital signs Vitals: Temp Pulse Resp BP Pulse Ox 98.4 F 87 16 146/91 H 100 08/31/18 10:16 08/31/18 10:16 08/31/18 10:16 08/31/18 10:16 08/31/18 10:16 Course - Vital Signs Vital signs: Temp Pulse Resp BP Pulse Ox 98.4 F 87 16 146/91 H 100 08/31/18 10:16 08/31/18 10:16 08/31/18 10:16 08/31/18 10:16 08/31/18 10:16
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
[2018-08-31 11:24] VITALS: BP 132/83
== END 2018-08-31 11:20 | disposition home or self-care (01) ==
LOC: ER 10:13
DX: R06.00 Dyspnea, unspecified (principal); R06.02 Shortness of breath; F17.210 Nicotine dependence, cigarettes, uncomplicated; Z88.3 Allergy status to other anti-infective agents; Z86.14 Personal history of Methicillin resistant Staphylococcus aureus infection
CPT/HCPCS: 99284

== ENCOUNTER 2018-09-18 01:31 | Emergency (ER) | payer MEDICAID ==
[2018-09-18 01:41] VITALS: BP 146/97
--- NOTE | 2018-09-18 02:36 | ER Document Report ---
ED General - General Chief Complaint: Allergic Reaction Stated Complaint: THROAT PAIN Time Seen by Provider: 09/18/18 01:57 Mode of Arrival: Ambulatory Information source: Patient Notes: This is a 32-year-old female with a history of hypertension (lisinopril and atenolol) who presents to the emergency room with a squeezing sensation in her throat for the past 3 weeks. Patient states she is been here twice before. She was initially treated for a URI with Flonase and an oral steroid. She states that her symptoms had not improved. She was again here for reevaluation and felt to have some reactive airway disease. Patient did follow-up with her primary care doctor and had an ultrasound of the thyroid. Patient comes with thyroid ultrasound report. She also comes with the outpatient blood work sent by her primary care provider. Patient states that the sensation seems to be worse when she is lying down flat. She denies any postnasal drip or URI symptoms. She denies any recent illnesses. She denies any fever. She denies any rash or swelling about the face. She does state that in the past she is been taken off of lisinopril because of a cough but was put on approximately a year ago because of her blood pressure. She does report intermittent cough. She also reports symptoms suggestive of possible sleep apnea but states she has been tested for it a few years ago and was told she does not have it. She does state when she felt the constricting sensation around her throat, she woke up and at that time she felt like she was having palpitations. TRAVEL OUTSIDE OF THE [place] IN LAST 30 DAYS: No - HPI Onset: Other - Past 3 weeks Onset/Duration: Gradual Quality of pain: No pain Severity: None Pain Level: Denies Associated symptoms: denies: Chest pain, Fever, Shortness of breath Exacerbated by: Denies Relieved by: Denies Similar symptoms previously: Yes Recently seen / treated by doctor: Yes - Related Data Allergies/Adverse Reactions: clindamycin [Clindamycin] Allergy (Verified 08/24/18 10:03) Swelling of hands and/or feet Past Medical History - General Information source: Patient - Social History Smoking Status: Former Smoker - Patient quit 2 weeks ago Cigarette use (# per day): No Chew tobacco use (# tins/day): No Frequency of alcohol use: None Drug Abuse: None Lives with: Spouse/Significant other Family History: Reviewed & Not Pertinent, Hypertension, Other Patient has suicidal ideation: No Patient has homicidal ideation: No - Past Medical History Cardiac Medical History: Reports: Hx Hypertension Denies: Hx Congestive Heart Failure, Hx Coronary Artery Disease, Hx Heart Attack Pulmonary Medical History: Denies: Hx Asthma Endocrine Medical History: Reports: Hx Hypothyroidism. Denies: Hx Diabetes Mellitus Type 1. 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 Renal/ Medical History: Denies: Hx Peritoneal Dialysis Musculoskeletal Medical History: Reports Hx Musculoskeletal Deformity Skin Medical History: Reports Hx Cellulitis, Reports Hx MRSA Psychiatric Medical History: Reports: Hx Anxiety - Patient denies feeling more anxious of late., Hx Depression - AND ANXIETY Infectious Medical History: Reports: Hx MRSA Past Surgical History: Reports: Hx Breast Surgery - Right breast abscess incision and drainage, Hx Section - Immunizations Immunizations up to date: Yes Hx Diphtheria, Pertussis, Tetanus Vaccination: Yes - 2014 Review of Systems - Review of Systems Constitutional: denies: Chills, Fever EENT: See HPI. denies: Nose congestion, Nose discharge, Sinus pressure, Sinus discharge, Difficulty swallowing Cardiovascular: Palpitations, Heart racing Respiratory: No symptoms reported Gastrointestinal: No symptoms reported Genitourinary: No symptoms reported Female Genitourinary: No symptoms reported Musculoskeletal: No symptoms reported Skin: No symptoms reported Hematologic/Lymphatic: No symptoms reported Neurological/Psychological: No symptoms reported Physical Exam - Vital signs Vitals: Temp Pulse Resp BP Pulse Ox 98.2 F 78 18 146/97 H 99 09/18/18 01:40 09/18/18 01:40 09/18/18 01:40 09/18/18 01:40 09/18/18 01:40 Notes: Physical exam: GENERAL: She is alert and oriented x3, no acute distress HEAD: Atraumatic, normocephalic. EYES: Pupils equal round and reactive to light, extraocular movements intact, sclera anicteric, conjunctiva are normal. ENT: TMs normal, nares patent, oropharynx clear without exudates. There is no swelling in the posterior pharynx. Moist mucous membranes. NECK: Normal range of motion, supple, she does have a visible goiter. There is no stridor. LUNGS: Breath sounds clear to auscultation bilaterally and equal. No wheezes rales or rhonchi. HEART: Regular rate and rhythm without murmurs, rubs or gallops. ABDOMEN: Soft, normoactive bowel sounds. No tenderness to palpation. No guarding, no rebound. No masses appreciated. EXTREMITIES: Normal range of motion, no pitting or edema. No clubbing or cyanosis. NEUROLOGICAL: Cranial nerves II through XII grossly intact. Normal speech, moving all extremities. PSYCH: Normal mood, normal affect. SKIN: Warm, Dry, normal turgor, no rashes or lesions noted. Course - Re-evaluation Re-evalutation: 09/18/18 03:13 I have reviewed the patient's ultrasound report: It showed a benign goiter which revealed hypovascularity which is often seen with hypothyroidism. I did re-review the patient's labs and her TSH, T4 and T3 were normal. I think in general, the patient has symptoms of a symptomatic goiter. I think ultimately it is probably hypofunctioning and growing in size to accommodate for the need for thyroid hormone. I do not see any evidence of an allergic reaction with any swelling. Patient has no evidence of airway constriction at this time. She did stop smoking 2 weeks ago anion encouraged her to continue this. In addition, I have recommended she get retested for sleep apnea and may be switching her oral antihypertensive from lisinopril to another medicine. Patient does state that she has some reactive airway disease and gets some benefit from albuterol. I will give her an ipratropium inhaler to see if she has any effect on the upper airways/constricting feeling. She does report that she is being referred to an insurance office manager. - Vital Signs Vital signs: Temp Pulse Resp BP Pulse Ox 98.2 F 78 18 146/97 H 99 09/18/18 01:40 09/18/18 01:40 09/18/18 01:40 09/18/18 01:40 09/18/18 01:40 Discharge - Discharge Clinical Impression: Symptomatic goiter Condition: Stable Disposition: HOME, SELF-CARE Additional Instructions: As we discussed, I think your symptoms are due to the fact that you have a goiter: This is a thyroid that is becoming larger. This is causing the sensation of tightness in your neck particularly when you are lying down. Ultimately, you do need to see an insurance office manager to see if there is any medicines they can do to help with this condition. There are some other things that you can do that may help: You have already stopped smoking. This is great. Important that you do not restart. You were recently given albuterol inhaler which can help with opening up lower airways. I would like you to try an ipratropium inhaler which can sometimes open up the upper airways. Also, consider coming off the lisinopril and restarting a different blood pressure medicine. The lisinopril can give you a cough which could worsen the constricting feeling around her neck. Lastly, I recommend you get rechecked for sleep apnea. Sleep apnea can also lead to a constricting feeling in the neck which could worsen the symptoms. Follow-up with your primary care provider to discuss these recommendations. Please bring this copy so you can remember and go over it with her. Prescriptions: Ipratropium [place] [Atrovent Hfa Inhalation Aerosol 12.9 gm Mdi] 2 puff IH QID PRN #1 inhaler PRN Reason: Referrals: MCKENZIE HOU, [Primary Care Provider] - Follow up as needed
== END 2018-09-18 02:44 | disposition home or self-care (01) ==
LOC: ER 01:31
DX: E04.9 Nontoxic goiter, unspecified (principal); R07.0 Pain in throat; I10 Essential (primary) hypertension; E03.9 Hypothyroidism, unspecified; F41.9 Anxiety disorder, unspecified; Z79.899 Other long term (current) drug therapy; Z87.891 Personal history of nicotine dependence; Z86.14 Personal history of Methicillin resistant Staphylococcus aureus infection
CPT/HCPCS: 99282

== ENCOUNTER 2018-09-29 08:55 | Emergency (ER) | payer MEDICAID ==
--- NOTE | 2018-09-29 09:14 | ER Document Report ---
HPI - HPI Pain Level: 1 Notes: Patient is a 32-year-old female who presents with multiple complaints today. Patient reports cough, congestion, runny nose, sore throat that all started on Saturday. Patient reports she did have a fever at one point of 102. Patient began having diarrhea on Saturday. Patient denies any abdominal pain. Patient reports her only past medical history is hypertension for which she is taking medications. Patient is a smoker. Patient did not receive a flu shot yet this year. - REPRODUCTIVE Reproductive: DENIES: : Past Medical History - General Information source: Patient - Social History Smoking Status: Current Every Day Smoker Frequency of alcohol use: None Drug Abuse: None Family History: Reviewed & Not Pertinent, Hypertension, Other - Past Medical History Cardiac Medical History: Reports: Hx Hypertension Denies: Hx Congestive Heart Failure, Hx Coronary Artery Disease, Hx Heart Attack Pulmonary Medical History: Denies: Hx Asthma Endocrine Medical History: Reports: Hx Hypothyroidism. Denies: Hx Diabetes Mellitus Type 1. 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 Renal/ Medical History: Denies: Hx Peritoneal Dialysis Musculoskeletal Medical History: Reports Hx Musculoskeletal Deformity Skin Medical History: Reports Hx Cellulitis, Reports Hx MRSA Psychiatric Medical History: Reports: Hx Anxiety - Patient denies feeling more anxious of late., Hx Depression - AND ANXIETY Infectious Medical History: Reports: Hx MRSA Past Surgical History: Reports: Hx Breast Surgery - Right breast abscess incision and drainage, Hx Section - Immunizations Immunizations up to date: Yes Hx Diphtheria, Pertussis, Tetanus Vaccination: Yes - 2014 [facility] Provider Document - CONSTITUTIONAL Notes: PHYSICAL EXAMINATION: GENERAL: Well-appearing, well-nourished and in no acute distress. HEAD: Atraumatic, normocephalic. EYES: Pupils equal round extraocular movements intact, conjunctiva are normal. ENT: Nares patent, mildly erythematous. Bilateral TMs pearly king. Throat mildly erythematous with no exudates, no tonsillar swelling. NECK: Normal range of motion LUNGS: No respiratory distress Musculoskeletal: Normal range of motion NEUROLOGICAL: Normal speech, normal gait. PSYCH: Normal mood, normal affect. SKIN: Warm, Dry, normal turgor, no rashes or lesions noted. - INFECTION CONTROL TRAVEL OUTSIDE OF THE [place] IN LAST 30 DAYS: No Course - Re-evaluation Re-evalutation: Rapid strep and influenza are both negative. Patient will be treated for viral upper respiratory illness. Patient will be prescribed Tessalon Perles and Flonase. Patient will be instructed to continue taking ibuprofen or Tylenol for body aches, pains and fever. Follow-up with PCP. - Vital Signs Vital signs: Temp Pulse Resp BP Pulse Ox 98.3 F 87 16 152/88 H 97 09/29/18 08:58 09/29/18 08:58 09/29/18 08:58 09/29/18 08:58 09/29/18 08:58 Discharge - Discharge Clinical Impression: Upper respiratory infection Qualifiers: URI type: unspecified viral URI Qualified Code(s): J06.9 - Acute upper respiratory infection, unspecified Condition: Stable Disposition: HOME, SELF-CARE Additional Instructions: Upper Respiratory Illness You have a viral infection of the respiratory passages -- a "cold." This common infection causes nasal congestion, drainage, and often sore throat and cough. It is caused by a virus and is highly contagious. The disease usually lasts a week or more, though the worst symptoms are usually over in 3 or 4 days. There is no "cure" for the viral infection -- it must run its course. If there is a complication, such as bacterial infection in the nose, sinuses, middle ear, or bronchial tubes, antibiotics may be required, but antibiotics won 't affect the virus. If you smoke, you should STOP!! Drink plenty of fluids. A humidifier may help. An expectorant medication or decongestant may make you more comfortable. Use acetaminophen or ibuprofen for fever or aches. See the doctor if fever persists over two or three days, if there is any significant worsening of your symptoms, or if you simply fail to improve as expected. FEVER: Fever is the body's reaction to infection. Fever can also occur with illnesses that create fever-producing substances in the body. By itself, fever is not harmful. It helps the body fight invading germs. We are more concerned with: (1) What's causing the fever? (2) How can we keep you more comfortable until the fever goes away? Early in an illness, symptoms are often so vague that a diagnosis can't be made. If the doctor hasn't identified a clear cause for your fever, you will probably develop new symptoms within the next two days. Contact the doctor if you develop severe worsening headache, rash, chest pain, cough with yellow or green sputum, difficulty breathing, abdominal pain, or other new symptoms. There is no reason to treat a fever if you're comfortable. If the fever is causing aches, headache, and fatigue, you can treat it with ibuprofen (Advil , Nuprin, etc) or acetaminophen (Tylenol). Follow the directions on the bottle. Get plenty of liquids (three quarts per day). Rest. Physical work or sports will raise the temperature higher and make you feel much worse. Dress lightly. If you're chilling, this means the temperature is trying to go higher. Take ibuprofen or acetaminophen. When you feel sweaty and "feverish" the temperature is coming down. If the fever doesn't go away within two days or if you become more ill, call the doctor or return at once for re-examination. VIRAL SYNDROME: The physician has diagnosed a likely viral infection. Viruses not only cause "colds," but can cause many different symptoms including generalized aching, fever, headache, cough, diarrhea, nausea, vomiting, and fatigue. The treatment, for the most part, is simply relief of symptoms. This means that antibiotics are usually not given. Rest, fluids, pain medications and, occasionally, medication for the specific symptoms that are most bothersome will be prescribed. Use good handwashing to avoid passing the virus to others. Shared toys should be cleaned with disinfectant. Clean the toilets, sinks, and counter surfaces in bathrooms. Launder clothing in hot water. Contact the physician if you develop any new or unusual symptoms such as severe headache, stiff neck, high fever, chest pain, productive cough, or shortness of breath. You should be rechecked if you don't see marked improvement within seven to 10 days. USE OF ACETAMINOPHEN (Tylenol): Acetaminophen may be taken for pain relief or fever control. It's much safer than aspirin, offering a wider range of "safe" dosages. It is safe during . Some brand names are Tylenol, Panadol, Datril, Anacin 3, Tempra, and Liquiprin. Acetaminophen can be repeated every four hours. The following are maximum recommended dosages: WEIGHT Dose Drops Elixir Chewable( 80mg) (LBS.) drprs=droppers tsp=teaspoon >89 pounds or adults 650 mg to 900 mg Acetaminophen can be repeated every four hours. Maximum dose not to exceed 4000 mg a day. These maximum recommended dosages are slightly higher than the dosages written on the product container, but these dosages are very safe and below the toxic dosage for acetaminophen. FOLLOW-UP CARE: If you have been referred to a physician for follow-up care, call the physician s office for an appointment as you were instructed or within the next two days. If you experience worsening or a significant change in your symptoms, notify the physician immediately or return to the Emergency Department at any time for re-evaluation. Both your rapid strep and influenza testing were negative today. You likely have an upper respiratory illness that is viral. We will send the throat swab for a culture, if anything comes back on it we will call you. Please take the medications as prescribed this will help with your cough as well as the nasal congestion. Please continue to take either Tylenol or ibuprofen for fever and body aches. Drink plenty of fluids. Follow-up with your primary care provider in the next 3-5 days if not improving. Prescriptions: Benzonatate [Tessalon Perles 100 mg Capsule] 100 mg PO Q8HP PRN #40 capsule PRN Reason: Fluticasone Propionate [Flonase Nasal [place] 50 Mcg/[place] 16 gm] 2 sprays NASL Q12 #1 inhaler Forms: Return to Work Referrals: MCKENZIE HOU, [Primary Care Provider] - Follow up as needed
[2018-09-29 09:49] LABS: A TYPE INFLUENZA AG NEGATIVE (NEGATIVE); B INFLUENZA AG NEGATIVE (NEGATIVE)
[2018-09-29 10:55] VITALS: BP 137/84
== END 2018-09-29 10:45 | disposition home or self-care (01) ==
LOC: ER 08:55
DX: J06.9 Acute upper respiratory infection, unspecified (principal); R05 Cough; R09.81 Nasal congestion; R09.89 Other specified symptoms and signs involving the circulatory and respiratory systems; J02.9 Acute pharyngitis, unspecified; R50.9 Fever, unspecified; I10 Essential (primary) hypertension; F17.200 Nicotine dependence, unspecified, uncomplicated
CPT/HCPCS: 87070; 87804; 87880; 99283

== ENCOUNTER 2018-11-26 08:44 | Emergency (ER) | payer MEDICAID ==
[2018-11-26 08:51] VITALS: BP 145/81
[2018-11-26] MEDS ORDERED: ONDANSETRON 4 MG TAB.RAPDIS PO ONE (09:37)
--- NOTE | 2018-11-26 09:40 | ER Document Report ---
ED Medical Screen (RME) - General Chief Complaint: Shortness Of Breath Stated Complaint: SHORTNESS OF BREATH, NAUSEA Time Seen by Provider: 11/26/18 09:24 Mode of Arrival: Ambulatory Information source: Patient, [facility] Records Notes: 33-year-old female with hypertension presents with complaint of 2 weeks of nonproductive cough, shortness of breath and nausea and diarrhea that started 2 days prior to arrival. Patient does smoke 5 cigarettes/day. I have greeted and performed a rapid initial assessment of this patient. A comprehensive ED assessment and evaluation of the patient, analysis of test results and completion of medical decision making process we will be contacted by additional ED providers. PHYSICAL EXAMINATION: Vital signs reviewed-hypertensive, afebrile GENERAL: Well-appearing, well-nourished and in no acute distress. LUNGS: No respiratory distress Musculoskeletal: Normal range of motion NEUROLOGICAL: Normal speech, normal gait. PSYCH: Normal mood, normal affect. SKIN: Warm, Dry, normal turgor, no rashes or lesions noted. TRAVEL OUTSIDE OF THE [place] IN LAST 30 DAYS: No - HPI Onset: Last week Onset/Duration: Gradual, Persistent Quality of pain: No pain Associated Symptoms: Cough (nonproductive), Diarrhea, Nausea, Shortness of breath Exacerbated by: Walking, Coughing Relieved by: Denies Similar symptoms previously: No Recently seen / treated by doctor: No - Related Data Smoking: Cigarettes Frequency of alcohol use: None Drug Abuse: None Allergies/Adverse Reactions: clindamycin [Clindamycin] Allergy (Verified 11/26/18 08:46) Swelling of hands and/or feet Home Medications: Losartan and atenolol Past Medical History - Social History Frequency of alcohol use: None Drug Abuse: None Family history: Reviewed & Not Pertinent - Past Medical History Cardiac Medical History: Reports: Hx Hypertension Denies: Hx Congestive Heart Failure, Hx Coronary Artery Disease, Hx Heart Attack Pulmonary Medical History: Denies: Hx Asthma Endocrine Medical History: Reports: Hx Hypothyroidism. Denies: Hx Diabetes Mellitus Type 1. 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 Renal/ Medical History: Denies: Hx Peritoneal Dialysis Musculoskeltal Medical History: Reports Hx Musculoskeletal Deformity Skin Medical History: Reports Hx Cellulitis, Reports Hx MRSA Psychiatric Medical History: Reports: Hx Anxiety - Patient denies feeling more anxious of late., Hx Depression - AND ANXIETY Infectious Medical History: Reports: Hx MRSA Past Surgical History: Reports: Hx Breast Surgery - Right breast abscess incision and drainage, Hx Section - Immunizations Immunizations up to date: Yes Hx Diphtheria, Pertussis, Tetanus Vaccination: Yes - 2014 History of Influenza Vaccine for 08/2017 - 01/2018 Season: No Physical Exam - Vital signs Vitals: Temp Pulse Resp BP Pulse Ox 98.4 F 93 22 H 145/81 H 99 11/26/18 08:50 11/26/18 08:50 11/26/18 08:50 11/26/18 08:50 11/26/18 08:50 Course - Vital Signs Vital signs: Temp Pulse Resp BP Pulse Ox 98.4 F 93 22 H 145/81 H 99 11/26/18 08:50 11/26/18 08:50 11/26/18 08:50 11/26/18 08:50 11/26/18 08:50 Doctor's Discharge - Discharge Referrals: MCKENZIE HOU, [Primary Care Provider] - Follow up as needed
[2018-11-26 10:18] LABS: APPEARANCE,URINE SLIGHTLY-CLOUDY; BILIRUBIN,URINE NEGATIVE (NEGATIVE); COLOR,URINE YELLOW; GLUCOSE, URINE NEGATIVE (NEGATIVE); KETONES,URINE NEGATIVE (NEGATIVE); LEUKOCYTE ESTERASE,URINE NEGATIVE (NEGATIVE); NITRITE,URINE NEGATIVE (NEGATIVE); PROTEIN,URINE NEGATIVE (NEGATIVE); URINE SPECIFIC GRAVITY 1.025
--- NOTE | 2018-11-26 10:18 | RADIOLOGY REPORT (SQ) ---
EXAM DESCRIPTION: CHEST 2 VIEWS COMPLETED DATE/TIME: 11/26/2018 10:04 am REASON FOR STUDY: cough sob COMPARISON: 03/05/2018 NUMBER OF VIEWS: Two view. TECHNIQUE: Frontal and lateral radiographic views of the chest acquired. LIMITATIONS: None. FINDINGS: LUNGS AND PLEURA: No opacities, masses or pneumothorax. No pleural effusion. MEDIASTINUM AND HILAR STRUCTURES: No masses. No contour abnormalities. HEART AND VASCULAR STRUCTURES: Heart enlarged without failure. Aorta normal for age. BONES: No acute findings. HARDWARE: None in the chest. OTHER: No other significant finding. IMPRESSION: CARDIAC ENLARGEMENT WITHOUT FAILURE. TECHNICAL DOCUMENTATION: JOB ID: [id number] [employer]- All Rights Reserved Reading location - IP/workstation name: [email or web address]
--- NOTE | 2018-11-26 10:52 | ER Document Report ---
ED General - General Chief Complaint: Shortness Of Breath Stated Complaint: SHORTNESS OF BREATH, NAUSEA Time Seen by Provider: 11/26/18 09:24 Mode of Arrival: Ambulatory TRAVEL OUTSIDE OF THE [place] IN LAST 30 DAYS: No - HPI Notes: Patient is a 33-year-old female that presents to the emergency department for chief complaint of shortness of breath for 2 weeks and nausea for 2-3 days. Patient states that her shortness of breath is unchanged over the last 2 weeks. Her shortness of breath is worse with physical exertion. She has seen her primary care doctor and is in the process of being worked up for hyperthyroidism. 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 Patient states her PCP told her that is why she is feeling short of breath. She denies any change in her shortness of breath today. She denies any chest pain, palpitations, fevers and cough. Patient also reports 2-3 days of nausea. She denies any vomiting or diarrhea. She denies any abdominal pain, vaginal discharge or vaginal bleeding. Patient LMP 10/16/18. She did have a positive test at home but states she thought that because she was stressed she did not have her period this week. She has not seen PHYSICIAN NEONATOLOGY yet. Past Medical History: Hyperthyroidism, hypertension Past Surgical History: Reviewed in chart Social History: Daily tobacco. Denies alcohol. Denies drugs. Family History: Reviewed and noncontributory for presenting illness Allergies: Reviewed, see documented allergy list. REVIEW OF SYSTEMS: CONSTITUTIONAL : No fever No chills No diaphoresis No recent illness EENT: No vision changes No congestion No sore throat CARDIOVASCULAR: No chest pain No palpitations RESPIRATORY: shortness of breath No cough No difficulty breathing GASTROINTESTINAL: No abdominal pain nausea No vomiting No diarrhea GENITOURINARY: No dysuria No hematuria No difficulty urinating MUSCULOSKELETAL: No back pain No leg pain No arm pain SKIN: No rashes No lesions LYMPHATIC: No swollen, enlarged glands. NEUROLOGICAL: No lightheadedness No headache No weakness No paresthesias PSYCHIATRIC: No anxiety No depression PHYSICAL EXAMINATION: Vital signs reviewed, nursing noted reviewed. GENERAL: Well-appearing, well-nourished and in no acute distress. HEAD: Atraumatic, normocephalic. EYES: Eyes appear normal, extraocular movements intact, sclera anicteric, conjunctiva are normal. ENT: nares patent, oropharynx clear without exudates. Moist mucous membranes. NECK: Normal range of motion, supple without lymphadenopathy LUNGS: Breath sounds clear to auscultation bilaterally and equal. No wheezes rales or rhonchi. HEART: Regular rate and rhythm without murmurs ABDOMEN: Soft, nontender, normoactive bowel sounds. No rebound, guarding, or rigidity. No masses appreciated. EXTREMITIES: Nontender, good range of motion, no pitting or edema. NEUROLOGICAL: No focal neurological deficits. Moves all extremities spontaneously Motor and sensory grossly intact on exam. PSYCH: Normal mood, normal affect. SKIN: Warm, Dry, normal turgor, no rashes or lesions noted on exposed skin - Related Data Allergies/Adverse Reactions: clindamycin [Clindamycin] Allergy (Verified 11/26/18 08:46) Swelling of hands and/or feet Home Medications: Losartan and atenolol Past Medical History - General Information source: Patient, [facility] Records - Social History Smoking Status: Current Some Day Smoker Frequency of alcohol use: None Drug Abuse: None Family History: Reviewed & Not Pertinent, Hypertension, Other Patient has suicidal ideation: No Patient has homicidal ideation: No - Past Medical History Cardiac Medical History: Reports: Hx Hypertension Denies: Hx Congestive Heart Failure, Hx Coronary Artery Disease, Hx Heart Attack Pulmonary Medical History: Denies: Hx Asthma Endocrine Medical History: Reports: Hx Hypothyroidism. Denies: Hx Diabetes Mellitus Type 1. 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 Renal/ Medical History: Denies: Hx Peritoneal Dialysis Musculoskeletal Medical History: Reports Hx Musculoskeletal Deformity Skin Medical History: Reports Hx Cellulitis, Reports Hx MRSA Psychiatric Medical History: Reports: Hx Anxiety - Patient denies feeling more anxious of late., Hx Depression - AND ANXIETY Infectious Medical History: Reports: Hx MRSA Past Surgical History: Reports: Hx Breast Surgery - Right breast abscess incision and drainage, Hx Section - Immunizations Immunizations up to date: Yes Hx Diphtheria, Pertussis, Tetanus Vaccination: Yes - 2014 Physical Exam - Vital signs Vitals: Temp Pulse Resp BP Pulse Ox 98.4 F 93 22 H 145/81 H 99 11/26/18 08:50 11/26/18 08:50 11/26/18 08:50 11/26/18 08:50 11/26/18 08:50 Course - Re-evaluation Re-evalutation: 11/26/18 10:49 Vitals reviewed. Nursing notes reviewed. Patient is in no acute distress. She has no wheezing but was counseled on tobacco cessation. Her test today is positive. She is not having any vaginal bleeding or abdominal pain. Her nausea is related to her early . She is 10 weeks and 2 days by dates. Further workup of her since she is only experiencing nausea is not currently indicated. She will follow with her PHYSICIAN NEONATOLOGY in the next week for obstetric care. She was counseled on beginning vitamins. Since she is hydrated and not actively vomiting antiemetics are not currently indicated given there cautions during . Patient was encouraged to keep her appointment with endocrinology on 12/10/18. She likely is experiencing short of breath related to her hyperthyroidism. Chest x-ray shows no pneumonia but she does have an enlarged cardiac silhouette with no signs of failure. She is oxygenating well on room air. She is PERC negative and I do not suspect PE patient is stable at discharge. She is requesting a doctor's note for today which will be provided. Laboratory 11/26/18 09:45 Urine Color YELLOW Urine Appearance SLIGHTLY-CLOUDY Urine pH 6.0 Ur Specific [place] 1.025 Urine Protein NEGATIVE Urine Glucose (UA) NEGATIVE Urine Ketones NEGATIVE Urine Blood SMALL H Urine Nitrite NEGATIVE Urine Bilirubin NEGATIVE Urine Urobilinogen 4.0 H Ur Leukocyte Esterase NEGATIVE Urine WBC (Auto) 1 Urine RBC (Auto) 9 Urine Bacteria (Auto) TRACE Squamous Epi Cells Auto 4 Urine Mucus (Auto) MANY Urine Ascorbic Acid NEGATIVE Urine HCG, Qual POSITIVE H Chest X-Ray 11/26/18 09:37 IMPRESSION: CARDIAC ENLARGEMENT WITHOUT FAILURE. - Vital Signs Vital signs: Temp Pulse Resp BP Pulse Ox 98.4 F 93 22 H 145/81 H 99 11/26/18 08:50 11/26/18 08:50 11/26/18 08:50 11/26/18 08:50 11/26/18 08:50 - Laboratory Laboratory results interpreted by me: 11/26/18 09:45 Urine Blood SMALL H Urine Urobilinogen 4.0 H Urine HCG, Qual POSITIVE H Discharge - Discharge Clinical Impression: Shortness of breath, Nausea Qualifiers: Weeks of gestation: unspecified Qualified Code(s): Z34.90 - Encounter for supervision of normal , unspecified, unspecified trimester Condition: Stable Disposition: HOME, SELF-CARE Instructions: ([facility]), Hyperthyroidism ([facility]) Additional Instructions: Please return to the emergency department if you have any worsening, or concern of your symptoms. Please return to the emergency department if you develop chest pain, difficulty breathing, severe abdominal pain, or ongoing vomiting. Please follow-up with your primary care physician in 2-3 days and any other recommended physicians. If prescribed, take all medications as directed. If you have any questions or concerns do not hesitate to return the emergency department for evaluation. Begin taking vitamins. Stay well-hydrated by drinking more water. Avoid caffeinated beverages, alcohol, and tobacco. Follow closely with your PHYSICIAN NEONATOLOGY for early management of your . Return to the emergency room if you develop vaginal bleeding or pelvic pain and are unable to be seen by her PHYSICIAN NEONATOLOGY. Forms: Smoking Cessation Education, Return to Work Referrals: [facility] [Provider Group] - Follow up as needed [facility] [Provider Group] - Follow up in 3-5 days MCKENZIE HOU DO [Primary Care Provider] - Follow up in 3-5 days
== END 2018-11-26 11:06 | disposition home or self-care (01) ==
LOC: ER 08:44
DX: O26.899 Other specified pregnancy related conditions, unspecified trimester (principal); R06.02 Shortness of breath; R11.0 Nausea; O16.9 Unspecified maternal hypertension, unspecified trimester; O99.330 Smoking (tobacco) complicating pregnancy, unspecified trimester; Z3A.00 Weeks of gestation of pregnancy not specified
CPT/HCPCS: 99285; 81025; 81001; 71046; S0119

== ENCOUNTER 2018-11-29 01:07 | Emergency (ER) | payer MEDICAID ==
[2018-11-29 01:19] VITALS: BP 146/89
== END 2018-11-29 04:47 | disposition left against medical advice (07) ==
LOC: ER 01:07
DX: Z53.21 Procedure and treatment not carried out due to patient leaving prior to being seen by health care provider (principal); M54.5 Low back pain; R10.9 Unspecified abdominal pain

== ENCOUNTER 2019-01-06 13:00 | Emergency (ER) | payer MEDICAID ==
[2019-01-06] MEDS ORDERED: ACETAMINOPHEN 325 MG TABLET PO ONE (14:03)
[2019-01-06] MEDS ORDERED: LABETALOL HCL 200 MG TABLET PO ONE (14:03)
--- NOTE | 2019-01-06 14:06 | ER Document Report ---
ED Medical Screen (RME) - General Chief Complaint: Headache >24 hrs old Stated Complaint: HEADACHE Time Seen by Provider: 01/06/19 14:00 Primary Care Provider: MCKENZIE HOU DO [Primary Care Provider] - Follow up as needed Notes: 33 years old female with presents today with elevated blood pressure and headache. Headache described as global. She did not take any Tylenol. No fever chills or other constitutional symptoms. TRAVEL OUTSIDE OF THE [place] IN LAST 30 DAYS: No - Related Data Allergies/Adverse Reactions: clindamycin [Clindamycin] Allergy (Verified 01/06/19 13:16) Swelling of hands and/or feet Past Medical History - Social History Chew tobacco use (# tins/day): No Frequency of alcohol use: None Drug Abuse: None Family history: Reviewed & Not Pertinent - Past Medical History Cardiac Medical History: Reports: Hx Hypertension Denies: Hx Congestive Heart Failure, Hx Coronary Artery Disease, Hx Heart Attack Pulmonary Medical History: Denies: Hx Asthma Neurological Medical History: Endocrine Medical History: Reports: Hx Hypothyroidism. Denies: Hx Diabetes Mellitus Type 1. 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 Renal/ Medical History: Denies: Hx Peritoneal Dialysis Musculoskeltal Medical History: Reports Hx Musculoskeletal Deformity Skin Medical History: Reports Hx Cellulitis, Reports Hx MRSA Psychiatric Medical History: Reports: Hx Anxiety - Patient denies feeling more anxious of late., Hx Depression - AND ANXIETY Infectious Medical History: Reports: Hx MRSA Past Surgical History: Reports: Hx Breast Surgery - Right breast abscess incision and drainage, Hx Section - Immunizations Immunizations up to date: Yes Hx Diphtheria, Pertussis, Tetanus Vaccination: Yes - 2014 History of Influenza Vaccine for 08/2017 - 01/2018 Season: No Physical Exam - Vital signs Vitals: Temp Pulse Resp BP Pulse Ox 98.6 F 114 H 18 150/94 H 98 01/06/19 13:28 01/06/19 13:28 01/06/19 13:28 01/06/19 13:28 01/06/19 13:28 Course - Vital Signs Vital signs: Temp Pulse Resp BP Pulse Ox 98.6 F 114 H 18 150/94 H 98 01/06/19 13:28 01/06/19 13:28 01/06/19 13:28 01/06/19 13:28 01/06/19 13:28 Doctor's Discharge - Discharge Referrals: MCKENZIE HOU, [Primary Care Provider] - Follow up as needed
[2019-01-06 15:11] LABS: ABSOLUTE BASOPHILS # (AUTO) 0.1 10^3/uL (0.0-0.2); ABSOLUTE EOSINOPHILS # (AUTO) 0.1 10^3/uL (0.0-0.6); ABSOLUTE LYMPHOCYTES (AUTO) 1.7 10^3/uL (0.5-4.7); ABSOLUTE MONOCYTES (AUTO) 0.5 10^3/uL (0.1-1.4); ABSOLUTE NEUT (AUTO) 4.9 10^3/uL (1.7-8.2); BASOPHILS % (AUTO) 0.8 % (0-2); EOSINOPHILS % (AUTO) 1.7 % (0-6); HEMOGLOBIN 13.4 g/dL (12.0-15.5); LYMPHOCYTES % (AUTO) 23.8 % (13-45); MEAN CORPUSCULAR HEMOGLOBIN 33.7 pg (27.0-33.4); MEAN CORPUSCULAR HGB CONC 34.4 g/dL (32.0-36.0); MEAN CORPUSCULAR VOLUME 98 fl (80-97); MONOCYTES % (AUTO) 6.3 % (3-13); PLATELET COUNT 318 10^3/uL (150-450); RED BLOOD COUNT 3.98 10^6/uL (3.72-5.28); RED CELL DISTRIBUTION WIDTH 14.1 % (11.5-14.0); SEGMENTED NEUTROPHILS % (AUTO) 67.4 % (42-78); TOTAL CELLS COUNTED % (AUTO) 100 %; WHITE BLOOD COUNT 7.2 10^3/uL (4.0-10.5)
[2019-01-06] MEDS ORDERED: NORMAL SALINE 1000 ML 1,000 ML IV ONE (15:29)
[2019-01-06] MEDS ORDERED: METOCLOPRAMIDE HCL INJ/PF 10 MG/2 ML SDV IV ONE (15:30)
[2019-01-06] MEDS ORDERED: MORPHINE SULFATE 10 MG/ML INJ IV ONE (15:30)
[2019-01-06 15:38] LABS: ALANINE AMINOTRANSFERASE 20 U/L (9-52); ALBUMIN 3.9 g/dL (3.5-5.0); ALKALINE PHOSPHATASE 73 U/L (38-126); ANION GAP 8 (5-19); ASPARTATE AMINO TRANSFERASE 16 U/L (14-36); BILIRUBIN,DIRECT 0.2 mg/dL (0.0-0.4); BILIRUBIN,TOTAL 0.5 mg/dL (0.2-1.3); BLOOD UREA NITROGEN 6 mg/dL (7-20); CALCIUM 9.4 mg/dL (8.4-10.2); CARBON DIOXIDE 26 mmol/L (22-30); CHLORIDE 105 mmol/L (98-107); GLUCOSE 110 mg/dL (75-110); POTASSIUM 4.2 mmol/L (3.6-5.0); SODIUM 139.2 mmol/L (137-145)
--- NOTE | 2019-01-06 15:46 | ER Document Report ---
ED General - General Chief Complaint: Headache >24 hrs old Stated Complaint: HEADACHE Time Seen by Provider: 01/06/19 14:00 Primary Care Provider: MCKENZIE HOU DO [Primary Care Provider] - Follow up as needed TRAVEL OUTSIDE OF THE [place] IN LAST 30 DAYS: No - HPI Patient complains to provider of: Headache, high blood pressure Onset: Yesterday Onset/Duration: Gradual Quality of pain: Throbbing Severity: Severe Context: 4 months Associated symptoms: Headache. denies: Chest pain, Chills, Nonproductive cough, Productive cough, Fever, Hurts to breath, Leg swelling, Shortness of breath Exacerbated by: Denies Relieved by: Denies Similar symptoms previously: No Recently seen / treated by doctor: No Notes: Patient is a 33-year-old obese -[place] female with history of hyperte nsion coming in today with headache for the past 2 days. Experiencing a little bit of blurry vision and some nausea. No fevers or shaking chills. No neck stiffness. Patient denies chest pain and shortness of breath. Denies leg swelling and calf tenderness. Headache is described as all over and throbbing. Seems to be getting better with Tylenol. Patient has been looking around on the Internet is worried about preeclampsia. - Related Data Allergies/Adverse Reactions: clindamycin [Clindamycin] Allergy (Verified 01/06/19 13:16) Swelling of hands and/or feet Past Medical History - General Information source: Patient - Social History Smoking Status: Never Smoker Chew tobacco use (# tins/day): No Frequency of alcohol use: None Drug Abuse: None Family History: Reviewed & Not Pertinent, Hypertension, Other Patient has suicidal ideation: No Patient has homicidal ideation: No - Past Medical History Cardiac Medical History: Reports: Hx Hypertension Denies: Hx Congestive Heart Failure, Hx Coronary Artery Disease, Hx Heart Attack Pulmonary Medical History: Denies: Hx Asthma Neurological Medical History: Endocrine Medical History: Reports: Hx Hypothyroidism. Denies: Hx Diabetes Mellitus Type 1. 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 Renal/ Medical History: Denies: Hx Peritoneal Dialysis Musculoskeletal Medical History: Reports Hx Musculoskeletal Deformity Skin Medical History: Reports Hx Cellulitis, Reports Hx MRSA Psychiatric Medical History: Reports: Hx Anxiety - Patient denies feeling more anxious of late., Hx Depression - AND ANXIETY Infectious Medical History: Reports: Hx MRSA Past Surgical History: Reports: Hx Breast Surgery - Right breast abscess incision and drainage, Hx Section - Immunizations Immunizations up to date: Yes Hx Diphtheria, Pertussis, Tetanus Vaccination: Yes - 2014 Review of Systems - Review of Systems Notes: Constitutional: No fevers. No chills. EENT: No eye redness. No eye pain. No ear pain. No sore throat. Cardiovascular: No chest pain. No palpitations. No peripheral edema Respiratory: No cough. No shortness of breath. No respiratory distress. Gastrointestinal: No abdominal pain. No nausea, vomiting, or diarrhea. Genitourinary: Atraumatic. No lesions. No pain. No discharge. Musculoskeletal: Atraumatic. No swelling. No deformities. Skin: No rash or lesions. Lymphatic: No swollen lymph nodes. Neurologic: Headache. No syncope. Mild blurry vision Psychiatric: No suicidal or homicidal ideation. Physical Exam - Vital signs Vitals: Temp Pulse Resp BP Pulse Ox 98.6 F 114 H 18 150/94 H 98 01/06/19 13:28 01/06/19 13:28 01/06/19 13:28 01/06/19 13:28 01/06/19 13:28 - Notes Notes: General: Well-developed, well-nourished. In no acute distress. Non-toxic appearing. Cardiac: Well-perfused. Regular rate and rhythm. No murmurs, rubs, or gallops. Pulmonary: No respiratory distress. No cyanosis. Bilateral lung blackwell are clear to auscultation. Abdominal: Non-distended. Non-rigid. Bowels sounds are present in all four quadrants. No guarding or rebound. HEENT: Head is atraumatic. Conjunctivae not reddened. No tearing. PERRL. EOMI. Orbits atraumatic. No periorbital swelling or erythema. Oropharynx is without erythema, swelling, or exudates. Neck: Supple. No adenopathy. No meningismus. Dermatologic: Warm with good turgor. No rash. Atraumatic. Chest: Atraumatic. No chest wall tenderness to palpation. Musculoskeletal: Moves all extremities well. No range of motion deficits. no muscular or joint tenderness. No paraspinal muscle tenderness. no midline spinal tenderness or step-off. Genitourinary: Examination deferred Neurologic: No gross neurologic deficits. DTRs 2+ bilaterally. No hyperreflexia Psychiatric: Normal mood. Course - Re-evaluation Re-evalutation: 01/06/19 15:46 Pit provider ordered some Tylenol and some labetalol for the blood pressure. Patient's headache continues. We will give her some IV fluids for her tachycardia and some Reglan and a small dose of morphine. We will see what her labs look like. Too early for preeclampsia. No neurologic deficits to make this concerning for intracranial hemorrhage. 01/06/19 18:25 IV fluids complete. Reglan was given for a headache that was coming back. Per nurse, headache is completely resolved. Patient is to follow-up with her primary care doctor/OB for further tweaking of her blood pressure medication dosages. I will write a prescription for Reglan for her headache. - Vital Signs Vital signs: Temp Pulse Resp BP Pulse Ox 98.8 F 88 16 151/87 H 100 01/06/19 16:51 01/06/19 16:51 01/06/19 16:51 01/06/19 16:51 01/06/19 16:51 - Laboratory Result Diagrams: 01/06/19 15:01 01/06/19 15:01 Laboratory results interpreted by me: 01/06/19 01/06/19 01/06/19 15:01 15:01 15:32 MCV 98 H MCH 33.7 H RDW 14.1 H BUN 6 L Urine Blood SMALL H Urine Urobilinogen 4.0 H Ur Leukocyte Esterase TRACE H - Consults jamie Time consulted: 17:08 Reason for consultation: 01/06/19 17:08 Elevated blood pressure at 16 weeks gestation Consulted provider: follow-up in office - Patient will need modifications in her blood pressure management. She can be seen in the office for this. Her appointment next week will be fine. Discharge - Discharge Clinical Impression: Headache in Qualifiers: Trimester: second trimester Qualified Code(s): O26.892 - Other specified related conditions, second trimester; R51 - Headache Hypertension Qualifiers: Hypertension type: essential hypertension Qualified Code(s): I10 - Essential (primary) hypertension Condition: Good Disposition: HOME, SELF-CARE Instructions: Headache ([facility]), Hypertension in ([facility]) Additional Instructions: Follow-up in the office of your business development consultant at your next scheduled appointment next week. Return to the ED if any acute changes. Prescriptions: Metoclopramide HCl [Reglan 10 mg Tablet] 1 tab PO Q6HP PRN #20 tablet PRN Reason: Referrals: MCKENZIE HOU DO [Primary Care Provider] - Follow up as needed LIU LIVINGSTON MD [ACTIVE STAFF] - Follow up in 3-5 days
[2019-01-06 15:57] LABS: AMORPHOUS SEDIMENT,URINE TRACE /HPF; APPEARANCE,URINE CLOUDY; BILIRUBIN,URINE NEGATIVE (NEGATIVE); COLOR,URINE YELLOW; GLUCOSE, URINE NEGATIVE (NEGATIVE); KETONES,URINE NEGATIVE (NEGATIVE); LEUKOCYTE ESTERASE,URINE TRACE (NEGATIVE); NITRITE,URINE NEGATIVE (NEGATIVE); PROTEIN,URINE NEGATIVE (NEGATIVE); URINE SPECIFIC GRAVITY 1.018
[2019-01-06 16:56] VITALS: BP 151/87
== END 2019-01-06 18:32 | disposition home or self-care (01) ==
LOC: ER 13:00
DX: O10.012 Pre-existing essential hypertension complicating pregnancy, second trimester (principal); O26.892 Other specified pregnancy related conditions, second trimester; R51 Headache; H53.8 Other visual disturbances; R11.0 Nausea; R00.0 Tachycardia, unspecified; Z3A.00 Weeks of gestation of pregnancy not specified; Z88.0 Allergy status to penicillin
CPT/HCPCS: 99284; 96361; 96374; 36415; 85025; 80053; 81001; J3490; J2765; J7030

== ENCOUNTER 2019-01-31 08:28 | Emergency (ER) | payer MEDICAID ==
--- NOTE | 2019-01-31 08:46 | ER Document Report ---
ED Respiratory Problem - General Chief Complaint: Cold Symptoms Stated Complaint: NASAL CONGESTION/COUGH Time Seen by Provider: 01/31/19 08:45 Primary Care Provider: MCKENZIE HOU DO [Primary Care Provider] - Follow up as needed Mode of Arrival: Ambulatory Information source: Patient Notes: Patient is a 33-year old female approximately 16 weeks who presents to the ER today for 2 days of sinus congestion, sore throat and body aches. Patient admits to some mild cough and shortness of breath. Patient states that she has had shortness of breath throughout the and even before. She admits to fever and chills but has not checked her temperature. TRAVEL OUTSIDE OF THE [place] IN LAST 30 DAYS: No - Related Data Allergies/Adverse Reactions: clindamycin [Clindamycin] Allergy (Verified 01/06/19 13:16) Swelling of hands and/or feet Past Medical History - General Information source: Patient - Social History Smoking Status: Never Smoker Chew tobacco use (# tins/day): No Frequency of alcohol use: None Drug Abuse: None Family History: Reviewed & Not Pertinent, Hypertension, Other Patient has suicidal ideation: No Patient has homicidal ideation: No - Past Medical History Cardiac Medical History: Reports: Hx Hypertension Denies: Hx Congestive Heart Failure, Hx Coronary Artery Disease, Hx Heart Attack Pulmonary Medical History: Denies: Hx Asthma Neurological Medical History: Endocrine Medical History: Reports: Hx Hypothyroidism. Denies: Hx Diabetes Mellitus Type 1. 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 Renal/ Medical History: Denies: Hx Peritoneal Dialysis Musculoskeletal Medical History: Reports Hx Musculoskeletal Deformity Skin Medical History: Reports Hx Cellulitis, Reports Hx MRSA Psychiatric Medical History: Reports: Hx Anxiety - Patient denies feeling more anxious of late., Hx Depression - AND ANXIETY Infectious Medical History: Reports: Hx MRSA Past Surgical History: Reports: Hx Breast Surgery - Right breast abscess i ncision and drainage, Hx Section - Immunizations Immunizations up to date: Yes Hx Diphtheria, Pertussis, Tetanus Vaccination: Yes - 2014 Review of Systems - Review of Systems Constitutional: See HPI EENT: See HPI Cardiovascular: No symptoms reported Respiratory: See HPI Gastrointestinal: No symptoms reported Genitourinary: No symptoms reported Female Genitourinary: No symptoms reported Musculoskeletal: No symptoms reported Skin: No symptoms reported Hematologic/Lymphatic: No symptoms reported Neurological/Psychological: No symptoms reported Physical Exam - Vital signs Vitals: Temp Pulse Resp BP Pulse Ox 98.3 F 105 H 16 152/97 H 100 01/31/19 08:32 01/31/19 08:32 01/31/19 08:32 01/31/19 08:32 01/31/19 08:32 - Notes Notes: PHYSICAL EXAMINATION: GENERAL: Mildly ill-appearing, in no acute distress. HEAD: Atraumatic, normocephalic. EYES: Pupils equal round and reactive to light, extraocular movements intact, sclera anicteric, conjunctiva are normal. ENT: Airway patent, ear canals without erythema or foreign body, TMs pearly mccauley with good bony landmarks, nares with clear rhinorrhea, oropharynx erythematous without enlarged tonsils or exudate. Moist mucous membranes. NECK: Normal range of motion, supple without lymphadenopathy LUNGS: CTAB and equal. No wheezes rales or rhonchi. HEART: Regular rate and rhythm without murmurs ABDOMEN: Soft, no tenderness. No guarding, no rebound BACK: no vertebral tenderness, normal ROM GI/: no CVA tenderness EXTREMITIES: Normal range of motion, no pitting edema. No cyanosis. NEUROLOGICAL: Cranial nerves grossly intact. Normal sensory/motor exams. PSYCH: Normal mood, normal affect. SKIN: Warm, Dry, normal turgor, no rashes or lesions noted Course - Re-evaluation Re-evalutation: 01/31/19 11:09 Patient positive for strep today, will be treated with amoxicillin and Magic mouthwash. Patient given albuterol inhaler as needed for shortness of breath which at this point seems to be likely due to her obesity even prior to . - Vital Signs Vital signs: Temp Pulse Resp BP Pulse Ox 98.1 F 85 16 125/77 98 01/31/19 10:30 01/31/19 10:30 01/31/19 10:30 01/31/19 10:30 01/31/19 10:30 Discharge - Discharge Clinical Impression: Strep throat Condition: Stable Disposition: HOME, SELF-CARE Instructions: Strep Throat ([facility]) Additional Instructions: Return immediately for any new or worsening symptoms. Follow up with primary care provider, call tomorrow to make followup appointment. Referrals: MCKENZIE HUO, [Primary Care Provider] - Follow up as needed
[2019-01-31 09:58] LABS: A TYPE INFLUENZA AG NEGATIVE (NEGATIVE); B INFLUENZA AG NEGATIVE (NEGATIVE)
[2019-01-31] MEDS ORDERED: ALBUTEROL SULFATE HFA (90 MCG/PUFF) 8 GM MDI (1 MDI/ER DISP) IH PRN (10:29)
[2019-01-31 10:38] VITALS: BP 125/77
== END 2019-01-31 10:55 | disposition home or self-care (01) ==
LOC: ER 08:28
DX: O99.519 Diseases of the respiratory system complicating pregnancy, unspecified trimester (principal); J02.0 Streptococcal pharyngitis; J34.89 Other specified disorders of nose and nasal sinuses; O26.899 Other specified pregnancy related conditions, unspecified trimester; R09.81 Nasal congestion; R05 Cough; R06.02 Shortness of breath; O16.9 Unspecified maternal hypertension, unspecified trimester; O99.210 Obesity complicating pregnancy, unspecified trimester; E66.9 Obesity, unspecified; Z3A.00 Weeks of gestation of pregnancy not specified; Z88.1 Allergy status to other antibiotic agents
CPT/HCPCS: 99283; 87880; 87804; J3490

== ENCOUNTER 2019-02-01 08:08 | Emergency (ER) | payer MEDICAID ==
[2019-02-01 08:16] VITALS: BP 149/99
--- NOTE | 2019-02-01 08:52 | ER Document Report ---
ED General - General Chief Complaint: Shortness Of Breath Stated Complaint: SHORTNESS OF BREATH Time Seen by Provider: 02/01/19 08:23 Primary Care Provider: MCKENZIE HOU DO [Primary Care Provider] - Follow up in 1 week TRAVEL OUTSIDE OF THE [place] IN LAST 30 DAYS: No - HPI Patient complains to provider of: Shortness of breath Notes: Patient coming in for evaluation of shortness of breath. Patient patient was seen here yesterday diagnosed with strep throat with a positive strep swab. Patient was given amoxicillin patient states she continued to have shortness of breath therefore went to a another medical facility and was diagnosed with bronchitis patient is approximate 16 weeks . Patient is a . Patient states with minimal exertion she has become short of breath states this is occurred over the last week. Patient also states having some nasal congestion. Patient is very concerned for shortness of breath therefore came back to the ER today for further evaluation. Patient upon my evaluation is in no obvious distress. Valve was able to watch the patient be placed in her room was able to ambulate down the gunter from room 5 to room 12 without any difficulty or signs of distress. A brief review of the patient's past medical records available in [facility] was performed - Related Data Allergies/Adverse Reactions: clindamycin [Clindamycin] Allergy (Verified 01/06/19 13:16) Swelling of hands and/or feet Past Medical History - Social History Smoking Status: Unknown if Ever Smoked Family History: Reviewed & Not Pertinent, Hypertension, Other - Past Medical History Cardiac Medical History: Reports: Hx Hypertension Denies: Hx Congestive Heart Failure, Hx Coronary Artery Disease, Hx Heart Attack Pulmonary Medical History: Denies: Hx Asthma Neurological Medical History: Endocrine Medical History: Reports: Hx Hypothyroidism. Denies: Hx Diabetes Mellitus Type 1. 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 Renal/ Medical History: Denies: Hx Peritoneal Dialysis Musculoskeletal Medical History: Reports Hx Musculoskeletal Deformity Skin Medical History: Reports Hx Cellulitis, Reports Hx MRSA Psychiatric Medical History: Reports: Hx Anxiety - Patient denies feeling more anxious of late., Hx Depression - AND ANXIETY Infectious Medical History: Reports: Hx MRSA Past Surgical History: Reports: Hx Breast Surgery - Right breast abscess incision and drainage, Hx Section - Immunizations Immunizations up to date: Yes Hx Diphtheria, Pertussis, Tetanus Vaccination: Yes - 2014 Review of Systems - Review of Systems Constitutional: No symptoms reported EENT: No symptoms reported Cardiovascular: No symptoms reported Respiratory: Short of breath Gastrointestinal: No symptoms reported Genitourinary: No symptoms reported Female Genitourinary: No symptoms reported Musculoskeletal: No symptoms reported Skin: No symptoms reported Hematologic/Lymphatic: No symptoms reported Neurological/Psychological: No symptoms reported Physical Exam - Vital signs Vitals: Temp Pulse Resp BP Pulse Ox 98.6 F 101 H 20 149/99 H 100 02/01/19 08:15 02/01/19 08:15 02/01/19 08:15 02/01/19 08:15 02/01/19 08:15 Interpretation: Normal - General General appearance: Appears well, Alert - HEENT Head: Normocephalic, Atraumatic Eyes: Normal Pupils: PERRL - Respiratory Respiratory status: No respiratory distress Chest status: Nontender Breath sounds: Normal Chest palpation: Normal - Cardiovascular Rhythm: Regular Heart sounds: Normal auscultation Murmur: No - Abdominal Inspection: Normal, Obese Distension: No distension Bowel sounds: Normal Tenderness: Nontender Organomegaly: No organomegaly - Back Back: Normal, Nontender - Extremities General upper extremity: Normal inspection, Nontender, Normal color, Normal ROM, Normal temperature General lower extremity: Normal inspection, Nontender, Normal color, Normal ROM, Normal temperature, Normal weight bearing. No: Jose Alfredo's sign - Neurological Neuro grossly intact: Yes Cognition: Normal Orientation: AAOx4 Noah Coma Scale Eye Opening: Spontaneous [place] Coma Scale Verbal: Oriented [place] Coma Scale Motor: Obeys Commands Noah Coma Scale Total: 15 Speech: Normal Motor strength normal: LUE, RUE, LLE, RLE Sensory: Normal - Psychological Associated symptoms: Normal affect, Normal mood - Skin Skin Temperature: Warm Skin Moisture: Dry Skin Color: Normal Course - Re-evaluation Re-evalutation: 02/01/19 13:13 Patient presented for dyspnea patient physical examination reveals an obese female patient did have bedside ultrasound performed showing positive motion and heart rate of approximately 143. Examination of the patient is not revealing signs suggestive of fluid retention CHF there is no advantageous lung sounds or heart sounds. Patient has no JVD no hepatojugular reflex. I explained to the patient that her previous visit shows that she has gained weight explained to the patient that is concerning is that she was already overweight before becoming she has a increase her BMI to 46 and more likely that her dyspnea can be explained by the current strep infection being and also being overweight I explained to the patient I would highly recommend she follow-up with [facility] and have a discussion about the expected amount of weight that she is going to gain. Patient will be discharged home continue home medications as prescribed - Vital Signs Vital signs: Temp Pulse Resp BP Pulse Ox 98.6 F 101 H 20 149/99 H 100 02/01/19 08:15 02/01/19 08:15 02/01/19 08:15 02/01/19 08:15 02/01/19 08:15 Discharge - Discharge Clinical Impression: Strep throat, Dyspnea on minimal exertion Qualifiers: Weeks of gestation: 16 weeks Qualified Code(s): Z3A.16 - 16 weeks gestation of Obese Qualifiers: Obesity classification: adult class 3 (BMI >= 40) Serious obesity comorbidity presence: without serious comorbidity Condition: Good Disposition: HOME, SELF-CARE Instructions: Dyspnea, Nonspecific ([facility]), Strep Throat ([facility]) Additional Instructions: Your strep test yesterday was positive please continue to take the antibiotic. You can continue to experience shortness of breath throughout the due to weight gain and your body habitus. I would recommend drinking plenty of fluids to stay well-hydrated you may follow-up with your [facility] in the next 1-2 weeks. Referrals: MCKENZIE HOU, [Primary Care Provider] - Follow up in 1 week
== END 2019-02-01 09:15 | disposition home or self-care (01) ==
LOC: ER 08:08
DX: O26.92 Pregnancy related conditions, unspecified, second trimester (principal); J02.0 Streptococcal pharyngitis; R06.00 Dyspnea, unspecified; O99.212 Obesity complicating pregnancy, second trimester; E66.01 Morbid (severe) obesity due to excess calories; Z3A.16 16 weeks gestation of pregnancy; Z86.14 Personal history of Methicillin resistant Staphylococcus aureus infection
CPT/HCPCS: 99284

== ENCOUNTER 2019-02-10 19:10 | Emergency (ER) | payer MEDICAID ==
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
[2019-02-10 20:17] VITALS: BP 131/90
== END 2019-02-10 20:17 | disposition home or self-care (01) ==
LOC: ER 19:10
DX: M67.471 Ganglion, right ankle and foot (principal); M79.671 Pain in right foot; Z88.3 Allergy status to other anti-infective agents
CPT/HCPCS: 99283

== ENCOUNTER 2019-04-08 12:24 | Emergency (ER) | payer MEDICAID ==
[2019-04-08 12:47] VITALS: BP 132/87
== END 2019-04-08 13:50 | disposition left against medical advice (07) ==
LOC: ER 12:24
DX: Z53.21 Procedure and treatment not carried out due to patient leaving prior to being seen by health care provider (principal)

== ENCOUNTER 2019-04-21 17:26 | Outpatient (CLI) | payer MEDICAID ==
[2019-04-21 18:24] LABS: APPEARANCE,URINE CLEAR; BILIRUBIN,URINE NEGATIVE (NEGATIVE); COLOR,URINE YELLOW; GLUCOSE, URINE NEGATIVE (NEGATIVE); KETONES,URINE NEGATIVE (NEGATIVE); LEUKOCYTE ESTERASE,URINE NEGATIVE (NEGATIVE); NITRITE,URINE NEGATIVE (NEGATIVE); PROTEIN,URINE NEGATIVE (NEGATIVE); URINE SPECIFIC GRAVITY 1.008
[2019-04-21 18:40] LABS: URINE AMPHETAMINES SCREEN NEGATIVE; URINE BARBITURATES SCREEN NEGATIVE; URINE BENZODIAZEPINES SCREEN NEGATIVE; URINE COCAINE SCREEN NEGATIVE; URINE MARIJUANA (THC) SCREEN NEGATIVE; URINE METHADONE SCREEN NEGATIVE; URINE PHENCYCLIDINE SCREEN NEGATIVE
[2019-04-21] MEDS ORDERED: BETAMET ACET/BETAMET NA INJ 6 MG/1 ML IM ONE (21:24)
[2019-04-21] MEDS ORDERED: BETAMET ACET/BETAMET NA INJ 6 MG/1 ML ONE (21:27)
--- NOTE | 2019-04-21 22:12 | RADIOLOGY REPORT (SQ) ---
EXAM DESCRIPTION: US LIMITED COMPLETED DATE/TME: 04/21/2019 00:00 CLINICAL HISTORY: 33 years, Female, Cervical Length COMPARISON: None. TECHNIQUE: Limited, emergent obstetric ultrasound LIMITATIONS: None. FINDINGS: There is a single, live intrauterine gestation in the cephalic presentation. Largest ventral pocket obtained at 8.1 cm. Cervical length is 1.9 cm. heart tones obtained at 130 bpm. Possible complex nabothian cyst with a subtle cystic focus in the region of the cervical canal. A detailed anatomic assessment was not performed at this time. The placenta is fundal in location. IMPRESSION: Single, live intrauterine gestation with cervical length 1.9 cm. Close obstetric follow-up recommended. copyright 2010 [employer]- All Rights Reserved
== END 2019-04-21 21:58 | disposition home or self-care (01) ==
LOC: LC 17:26
PROVIDERS: ATTEND Obstetrics & Gynecology
PROC: 4A1HXCZ Monitoring of Products of Conception, Cardiac Rate, External Approach (ICD-10-PCS; principal; 2019-04-21)
DX: O47.03 False labor before 37 completed weeks of gestation, third trimester (principal); Z3A.28 28 weeks gestation of pregnancy
CPT/HCPCS: 59899; 96372; 81001; 80307; 76815; J0702

== ENCOUNTER 2019-04-22 21:36 | Outpatient (CLI) | payer MEDICAID ==
[2019-04-22] MEDS ORDERED: BETAMET ACET/BETAMET NA INJ 6 MG/1 ML IM ONE (21:41)
[2019-04-22] MEDS ORDERED: BETAMET ACET/BETAMET NA INJ 6 MG/1 ML ONE (21:41)
== END 2019-04-22 21:49 | disposition home or self-care (01) ==
LOC: LC 21:36
PROVIDERS: ATTEND Obstetrics & Gynecology
PROC: 4A1HXCZ Monitoring of Products of Conception, Cardiac Rate, External Approach (ICD-10-PCS; principal; 2019-04-22)
DX: O47.02 False labor before 37 completed weeks of gestation, second trimester (principal); O10.912 Unspecified pre-existing hypertension complicating pregnancy, second trimester; Z3A.27 27 weeks gestation of pregnancy
CPT/HCPCS: 59899; 96372; J0702

== ENCOUNTER 2019-06-07 18:49 | Outpatient (CLI) | payer MEDICAID ==
[2019-06-07 19:36] LABS: APPEARANCE,URINE SLIGHTLY-CLOUDY; BILIRUBIN,URINE NEGATIVE (NEGATIVE); GLUCOSE, URINE NEGATIVE (NEGATIVE); KETONES,URINE NEGATIVE (NEGATIVE); LEUKOCYTE ESTERASE,URINE NEGATIVE (NEGATIVE); NITRITE,URINE NEGATIVE (NEGATIVE); PROTEIN,URINE 30 mg/dL (NEGATIVE); URINE SPECIFIC GRAVITY 1.027
[2019-06-07 19:37] LABS: COLOR,URINE DARK YELLOW
[2019-06-07 19:44] LABS: URINE AMPHETAMINES SCREEN NEGATIVE; URINE BARBITURATES SCREEN NEGATIVE; URINE BENZODIAZEPINES SCREEN NEGATIVE; URINE COCAINE SCREEN NEGATIVE; URINE MARIJUANA (THC) SCREEN NEGATIVE; URINE METHADONE SCREEN NEGATIVE; URINE PHENCYCLIDINE SCREEN NEGATIVE
--- NOTE | 2019-06-07 21:00 | Non Stress Test Report ---
Non Stress Test Datetime Report Generated by CPN: 06/07/2019 20:59 DEMOGRAPHIC EGA NST: 33.4 INDICATION Indication for Study: Ordered by Provider VITAL SIGNS RESP - NST: 16 (Annotations: Data stored by CPN on behalf of user) MONITORING Monitor Explained: Monitor Explained; Test Explained; Patient Verbalized Understanding Time on Monitor: 06/07/2019 19:27 Time off Monitor: 06/07/2019 20:48 NST Duration: 81 NST INTERVENTIONS NST Interventions: PO Hydration; Reposition Patient Physician Notified NST: Dr Joaquin BABY A: [id number] BABY A Movement : Present Contraction Frequency : 0 FHR Baseline : 135 Accelerations : 15X15 Decelerations : None Variability : Moderate 6-25bpm NST Review: Meets Criteria for Reactive NST NST Review and Verified By : RAN Reis NSDarrius Results: Reactive NST REPORT Report Trigger: Send Report
== END 2019-06-07 21:13 | disposition home or self-care (01) ==
LOC: LC 18:49
PROVIDERS: ATTEND Obstetrics & Gynecology Gynecology
DX: O36.8330 Maternal care for abnormalities of the fetal heart rate or rhythm, third trimester, not applicable or unspecified (principal); Z3A.33 33 weeks gestation of pregnancy
CPT/HCPCS: 59025; 80307; 81001

== ENCOUNTER 2019-06-10 10:05 | Outpatient (CLI) | payer MEDICAID ==
--- NOTE | 2019-06-10 11:03 | Non Stress Test Report ---
Non Stress Test Datetime Report Generated by CPN: 06/10/2019 11:03 DEMOGRAPHIC EGA NST: 34.0 MONITORING Monitor Explained: Monitor Explained; Test Explained; Patient Verbalized Understanding Time on Monitor: 06/10/2019 10:12 Time off Monitor: 06/10/2019 10:57 NST Duration: 45 NST INTERVENTIONS NST Interventions: None Physician Notified NST: J. Betancur, CNM BABY A: [id number] BABY A Movement : Present Contraction Frequency : 0 FHR Baseline : 135 Accelerations : 15X15 Decelerations : None Variability : Moderate 6-25bpm NST Review: Meets Criteria for Reactive NST NST Review and Verified By : Kyle Lagos RN NST Results: Reactive NST REPORT Report Trigger: Send Report
== END 2019-06-10 11:08 | disposition home or self-care (01) ==
LOC: LC 10:05
PROVIDERS: ATTEND Obstetrics & Gynecology
DX: Z34.83 Encounter for supervision of other normal pregnancy, third trimester (principal); Z3A.34 34 weeks gestation of pregnancy
CPT/HCPCS: 59025

== ENCOUNTER 2019-06-18 11:37 | Outpatient (CLI) | payer MEDICAID | END 2019-06-18 12:39 | disposition home or self-care (01) | LOC: LC 11:37 | PROVIDERS: ATTEND Obstetrics & Gynecology Gynecology | DX: O24.419 Gestational diabetes mellitus in pregnancy, unspecified control (principal); Z3A.35 35 weeks gestation of pregnancy | CPT/HCPCS: 59025; 82962 ==

== ENCOUNTER 2019-06-22 22:53 | Emergency (ER) | payer MEDICAID ==
[2019-06-23] MEDS ORDERED: ACETAMINOPHEN 325 MG TABLET PO ONE (00:34)
--- NOTE | 2019-06-23 00:40 | ER Document Report ---
ED Medical Screen (RME) - General Chief Complaint: Back Pain Stated Complaint: BACK PAIN Time Seen by Provider: 06/23/19 00:31 Primary Care Provider: MARIANNA WINSTON MD [Primary Care Provider] - Follow up as needed Mode of Arrival: Ambulatory Information source: Patient Notes: 33-year-old female presented to ED for complaint of low back pain on the right side going down the right leg. She states most of the pain is in the right buttocks. She is alert oriented respirations regular and unlabored. She is 35 weeks 4 days this is 4 para 2 with 1 miscarriage. She states her only surgeries are and she is scheduled for her on 07/06/2019. She states she is a former smoker and has a history of gestational diabetes and high blood pressure and is on medications for high blood pressure. I have greeted and performed a rapid initial assessment of this patient. A comprehensive ED assessment and evaluation of the patient, analysis of test results and completion of medical decision making process will be conducted by an additional ED providers. Dictation of this chart was performed using voice recognition software; therefor e, there may be some unintended grammatical errors. TRAVEL OUTSIDE OF THE [place] IN LAST 30 DAYS: No - Related Data Allergies/Adverse Reactions: clindamycin [Clindamycin] Allergy (Verified 06/18/19 12:28) Swelling of hands and/or feet Past Medical History - Social History Family history: Reviewed & Not Pertinent - Past Medical History Cardiac Medical History: Reports: Hx Hypertension Denies: Hx Congestive Heart Failure, Hx Coronary Artery Disease, Hx Heart Attack Pulmonary Medical History: Denies: Hx Asthma Neurological Medical History: Endocrine Medical History: Reports: Hx Hypothyroidism. Denies: Hx Diabetes Mellitus Type 1. 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 Renal/ Medical History: Denies: Hx Peritoneal Dialysis Musculoskeltal Medical History: Reports Hx Musculoskeletal Deformity Skin Medical History: Reports Hx Cellulitis, Reports Hx MRSA Psychiatric Medical History: Reports: Hx Anxiety - Patient denies feeling more anxious of late., Hx Depression - AND ANXIETY Infectious Medical History: Reports: Hx MRSA Past Surgical History: Reports: Hx Breast Surgery - Right breast abscess incision and drainage, Hx Section - Immunizations Immunizations up to date: Yes Hx Diphtheria, Pertussis, Tetanus Vaccination: Yes - 2014 History of Influenza Vaccine for 08/2017 - 01/2018 Season: No Physical Exam - Vital signs Vitals: Temp Pulse Resp BP Pulse Ox 98.3 F 94 16 133/74 H 97 06/22/19 23:30 06/22/19 23:30 06/22/19 23:30 06/22/19 23:30 06/22/19 23:30 Course - Vital Signs Vital signs: Temp Pulse Resp BP Pulse Ox 98.3 F 94 16 133/74 H 97 06/22/19 23:30 06/22/19 23:30 06/22/19 23:30 06/22/19 23:30 06/22/19 23:30 Doctor's Discharge - Discharge Referrals: MARIANNA WINSTON MD [Primary Care Provider] - Follow up as needed
[2019-06-23 01:19] LABS: APPEARANCE,URINE SLIGHTLY-CLOUDY; BILIRUBIN,URINE NEGATIVE (NEGATIVE); CALCIUM OXALATE CRYSTALS,URINE MANY /HPF; COLOR,URINE YELLOW; GLUCOSE, URINE 50 mg/dL (NEGATIVE); KETONES,URINE 20 mg/dL (NEGATIVE); LEUKOCYTE ESTERASE,URINE NEGATIVE (NEGATIVE); NITRITE,URINE NEGATIVE (NEGATIVE); PROTEIN,URINE 30 mg/dL (NEGATIVE); URINE SPECIFIC GRAVITY 1.031
[2019-06-23 01:20] VITALS: BP 133/63
== END 2019-06-23 03:25 | disposition left against medical advice (07) ==
LOC: ER 22:53
DX: O26.93 Pregnancy related conditions, unspecified, third trimester (principal); M54.5 Low back pain; Z3A.34 34 weeks gestation of pregnancy; Z88.3 Allergy status to other anti-infective agents
CPT/HCPCS: 81001; 99281

== ENCOUNTER 2019-06-30 11:22 | Inpatient (IN) | payer MEDICAID ==
[2019-07-03 09:50] LABS: APPEARANCE,URINE SLIGHTLY-CLOUDY; BILIRUBIN,URINE NEGATIVE (NEGATIVE); COLOR,URINE YELLOW; GLUCOSE, URINE NEGATIVE (NEGATIVE); KETONES,URINE NEGATIVE (NEGATIVE); LEUKOCYTE ESTERASE,URINE NEGATIVE (NEGATIVE); NITRITE,URINE NEGATIVE (NEGATIVE); PROTEIN,URINE NEGATIVE (NEGATIVE); URINE SPECIFIC GRAVITY 1.018
[2019-07-03 09:52] LABS: ABSOLUTE LYMPHOCYTES (AUTO) 1.6 10^3/uL (0.5-4.7); ABSOLUTE MONOCYTES (AUTO) 0.6 10^3/uL (0.1-1.4); ABSOLUTE NEUT (AUTO) 3.5 10^3/uL (1.7-8.2); BASOPHILS % (AUTO) 0.3 % (0-2); EOSINOPHILS % (AUTO) 0.8 % (0-6); HEMATOCRIT 35.5 % (36.0-47.0); HEMOGLOBIN 12.1 g/dL (12.0-15.5); LYMPHOCYTES % (AUTO) 28.2 % (13-45); MEAN CORPUSCULAR HEMOGLOBIN 32.8 pg (27.0-33.4); MEAN CORPUSCULAR HGB CONC 34.2 g/dL (32.0-36.0); MEAN CORPUSCULAR VOLUME 96 fl (80-97); MONOCYTES % (AUTO) 10.2 % (3-13); PLATELET COUNT 233 10^3/uL (150-450); RED CELL DISTRIBUTION WIDTH 15.3 % (11.5-14.0); SEGMENTED NEUTROPHILS % (AUTO) 60.5 % (42-78); TOTAL CELLS COUNTED % (AUTO) 100 %; WHITE BLOOD COUNT 5.8 10^3/uL (4.0-10.5)
[2019-07-03 09:55] LABS: ADD MANUAL MICROSCOPIC YES
[2019-07-03 10:06] LABS: URINE AMPHETAMINES SCREEN NEGATIVE; URINE BARBITURATES SCREEN NEGATIVE; URINE BENZODIAZEPINES SCREEN NEGATIVE; URINE COCAINE SCREEN NEGATIVE; URINE MARIJUANA (THC) SCREEN NEGATIVE; URINE METHADONE SCREEN NEGATIVE; URINE PHENCYCLIDINE SCREEN NEGATIVE
[2019-07-03 10:10] LABS: RBC,URINE RARE /HPF; WBC,URINE NONE SEEN /HPF
--- NOTE | 2019-07-03 13:18 | EKG REPORT ---
SEVERITY:- BORDERLINE ECG - SINUS RHYTHM NONSPECIFIC INFERIOR ST-T CHANGES UNCHANGED FROM 12/08/17 : Confirmed by: Paulino Manzo MD 03-Jul-2019 13:17:27
[2019-07-06] MEDS ORDERED: LIDOCAINE 0.5% INJ-PF (5 MG/ML) 50 ML SDV SUBCUT PRN (05:00)
[2019-07-06] MEDS ORDERED: CEFAZOLIN 1 GM/D5W RTU 1 GM/50 ML RTUPB IV PRN (05:00)
[2019-07-06] MEDS ORDERED: LACTATED RINGERS 1000 ML IV PRN (05:00)
[2019-07-06] MEDS ORDERED: RINGERS SOLUTION,LACTATED 1,000 ML IV ONE (05:00)
[2019-07-06] MEDS ORDERED: EPHEDRINE SULFATE INJ 50 MG/1 ML AMPULE ONE (13:01)
[2019-07-06] MEDS ORDERED: KETOROLAC TROMETHAMINE INJ/PF 30 MG/1 ML SDV ONE (13:01)
[2019-07-06] MEDS ORDERED: MIDAZOLAM 2 MG/2 ML INJ ONE (13:01)
[2019-07-06] MEDS ORDERED: FENTANYL CITRATE INJ/PF 100 MCG/2 ML AMPUL ONE ×2 (13:01→15:59)
[2019-07-06] MEDS ORDERED: OXYTOCIN 10 UNIT/ML VIAL ONE ×2 (13:01→13:03)
[2019-07-06] MEDS ORDERED: ONDANSETRON HCL INJ/PF 4 MG/2 ML SDV ONE (13:02)
[2019-07-06] MEDS ORDERED: OXYTOCIN/NORMAL SALINE 20 UNIT/1,000 ML RTUINJ ONE (13:02)
[2019-07-06] MEDS ORDERED: MEPERIDINE HCL/PF INJ 25 MG/1 ML DISP.SYRIN IV PRN (14:20)
[2019-07-06] MEDS ORDERED: OXYCODONE-ACETAMINOPHEN 5-325 MG TABLET PO PRN ×3 (14:20→14:44)
[2019-07-06] MEDS ORDERED: DIPHENHYDRAMINE HCL 50 MG/ML VIAL IV PRN (14:20)
[2019-07-06] MEDS ORDERED: FENTANYL CITRATE INJ/PF 100 MCG/2 ML AMPUL IV PRN ×3 (14:20)
[2019-07-06] MEDS ORDERED: MORPHINE SULFATE 10 MG/ML INJ IV PRN ×2 (14:20→14:44)
[2019-07-06] MEDS ORDERED: PROMETHAZINE HCL INJ 25 MG/1 ML VIAL IV PRN ×3 (14:20→14:44)
[2019-07-06] MEDS ORDERED: ACETAMINOPHEN 1,000 MG/100 ML RTUPB IV PRN (14:44)
[2019-07-06] MEDS ORDERED: SIMETHICONE 80 MG TAB.CHEW PO PRN (14:44)
[2019-07-06] MEDS ORDERED: DIPH/PERTUSS(ACELL)/TETANUS VAC/PF 0.5 ML SYR (>=10YO) IM PRN (14:44)
[2019-07-06] MEDS ORDERED: ACETAMINOPHEN 325 MG TABLET PO PRN (14:44)
[2019-07-06] MEDS ORDERED: OXYTOCIN/NORMAL SALINE 20 UNIT/1,000 ML RTUINJ IV PRN (14:44)
[2019-07-06] MEDS ORDERED: MEASLES,MUMPS&RUBELLA VACC/PF 0.5 ML VIAL SUBCUT PRN (14:44)
[2019-07-06] MEDS ORDERED: NORMAL SALINE 1000 ML 1,000 ML IV PRN (14:44)
--- NOTE | 2019-07-06 14:53 | Operative Report ---
Operative Report DATE OF SURGERY: 07/06/19 PREOPERATIVE DIAGNOSIS: IUP @ 38 3/7 wks, A2DM, previous c/section and undesired fertility POSTOPERATIVE DIAGNOSIS: same OPERATION: c/section with [place] tubal ligation SURGEON: LIU LIVINGSTON 1ST DIRECTOR OF REIMBURSEMENT: HELADIO LAMAS ANESTHESIA: Spinal TISSUE REMOVED OR ALTERED: bilateral fallopian tubes COMPLICATIONS: none ESTIMATED BLOOD LOSS: 750cc INTRAOPERATIVE FINDINGS: Female cephalic presentation with Apgars of 8 and 9 PROCEDURE: The patient was taken to the operating room, prepared and draped in anormal sterile fashion in a supine position with a leftward tilt. A transverse skin incision was made with a scalpel and carried through tothe underlying layer of fascia with the same scalpel. The fascia was excised in the midline and extended laterally with Jethro. The fascia was then dissected from the rectus muscle sharply with Jethro and the rectus muscle was divided and the peritoneal cavity was entered sharply with the same Metzenbaum. With good visualization of the bladder and the uterus the bladder blade was inserted. The hysterotomy was nicked with a scalpel and extended laterally with surgeon finger fraction. The was thendelivered atraumatically. The nose and mouth were suctioned with a suction bulb, the cord was clamped and cut and handed off to awaiting pediatricians. Cord blood was collected. The placenta was removed manually. The uterus was exteriorized and cleared of clots and debris. The hysterotomy was closed with 0 Monocryl in a running, locked fashion. A second layer of the same suture was used to imbricate to ensure hemostasis. Attention was then turned to the fallopian tubes where the right fallopian tube was grasped with a Stefanie, the mesosalpinx was divided with a Bovie. a 3-1/2 cm segment of fallopian tube was tied off with 2 pieces of 2-0 chromic.this segment was ligated using Metzenbaums and the pedicles were made hemostatic with the Bovie. This procedure was repeated on the left fallopian tube without difficulty. The uterus was returned to the abdomen and peritoneal cavity was cleared of clots and debris. The pedicles were inspected and they were still hemostatic. The rectus muscle and peritoneum were repaired with mattress stitch of 2-0 Chromic. The fascia was closed with 0-Vicryl. The subcutaneous layer was closed with plain catgut and the skin was closed with 4-0 Vicryl. The patient tolerated the procedure well. Sponge, lap, and needle counts correct x2 and the patient was taken to recovery in stable condition.
[2019-07-06] MEDS ORDERED: IBUPROFEN 800 MG TABLET ONE (15:46)
[2019-07-06] MEDS: DOCUSATE SODIUM 100 MG CAPSULE PO SCH (18:40)
[2019-07-06] MEDS: OXYCODONE-ACETAMINOPHEN 5-325 MG TABLET PO PRN (18:46)
[2019-07-06] MEDS: KETOROLAC TROMETHAMINE INJ/PF 30 MG/1 ML SDV IV SCH (21:09)
[2019-07-07] MEDS: OXYCODONE-ACETAMINOPHEN 5-325 MG TABLET PO PRN ×3 (00:28→17:40)
[2019-07-07] MEDS: KETOROLAC TROMETHAMINE INJ/PF 30 MG/1 ML SDV IV SCH (05:42)
[2019-07-07 06:58] LABS: HEMATOCRIT 33.8 % (36.0-47.0); HEMOGLOBIN 11.4 g/dL (12.0-15.5); MEAN CORPUSCULAR HEMOGLOBIN 32.7 pg (27.0-33.4); MEAN CORPUSCULAR HGB CONC 33.8 g/dL (32.0-36.0); MEAN CORPUSCULAR VOLUME 97 fl (80-97); PLATELET COUNT 231 10^3/uL (150-450); RED CELL DISTRIBUTION WIDTH 15.2 % (11.5-14.0); WHITE BLOOD COUNT 8.2 10^3/uL (4.0-10.5)
[2019-07-07] MEDS: DOCUSATE SODIUM 100 MG CAPSULE PO SCH ×2 (09:24→17:38)
[2019-07-07] MEDS: PRENATAL VITAMIN W DHA CAPSULE PO SCH (09:24)
--- NOTE | 2019-07-07 11:52 | PDOC PROGRESS REPORT ---
Subjective-OB Progress Note for:: 07/07/19 Subjective: Sitting up in bed, family in room, passing gas, eating well, voiding, ambulating Physical Exam (OB) Vital Signs: Temp Pulse Resp BP Pulse Ox 97.9 F 91 17 130/76 H 100 07/07/19 07:37 07/07/19 07:37 07/07/19 07:37 07/07/19 07:37 07/07/19 07:37 Intake & Output 07/06/19 07/07/19 07/08/19 06:59 06:59 06:59 Intake Total 2000 200 Output Total 1430 400 Balance 570 -200 Weight 139.706 kg - PIH/Pre-Eclampsia Clonus: Negative Headache: Absent Epigastric Pain: No Visual Changes: No - Dressing Removed: No Incision: Well Approximated Closure Type: opsite - Lochia Lochia Amount: Scant < 10 ml Lochia Color: Rubra/Red - Abdomen Description: Tender, Soft, Round Hernia Present: No Fundal Description: Firm, Midline Fundal Height: u/u - u/2 Objective-Diagnostic Laboratory: 07/07/19 06:47 07/07/19 06:47 WBC 8.2 RBC 3.50 L Hgb 11.4 L Hct 33.8 L MCV 97 MCH 32.7 MCHC 33.8 RDW 15.2 H Plt Count 231 Assessment and Plan(PN) - Assessment and Plan (1) Gestational diabetes mellitus, class A2 Is this a current diagnosis for this admission?: Yes (3) Status post repeat low transverse section Is this a current diagnosis for this admission?: Yes - Time Spent with Patient Time with patient: Less than 15 minutes Medications reviewed and adjusted accordingly: Yes - Disposition Anticipated Discharge: Home Within: within 24 hours
[2019-07-07] MEDS: IBUPROFEN 800 MG TABLET PO SCH ×3 (12:04→23:29)
[2019-07-07] MEDS ORDERED: IBUPROFEN 800 MG TABLET PO SCH (18:00)
[2019-07-08] MEDS: OXYCODONE-ACETAMINOPHEN 5-325 MG TABLET PO PRN ×2 (00:55→08:18)
[2019-07-08] MEDS: IBUPROFEN 800 MG TABLET PO SCH ×2 (05:18→12:18)
[2019-07-08] MEDS: DOCUSATE SODIUM 100 MG CAPSULE PO SCH (09:47)
[2019-07-08] MEDS: PRENATAL VITAMIN W DHA CAPSULE PO SCH (09:47)
--- NOTE | 2019-07-08 10:27 | PDOC DISCHARGE SUMMARY ---
Final Diagnosis Discharge Date: 07/08/19 - Final Diagnosis (1) Gestational diabetes mellitus, class A2 Is this a current diagnosis for this admission?: Yes (2) Status post repeat low transverse section Is this a current diagnosis for this admission?: Yes (3) bilateral tubal ligation Is this a current diagnosis for this admission?: Yes Discharge Data - Discharge Medication Home Medications: Atenolol [Tenormin] 25 mg PO DAILY 07/11/16 Glyburide [Diabeta 2.5 mg Tablet] 1 tab PO QHS 06/18/19 No122/Iron/Folic Acid [ Multi Tablet] 1 tab PO DAILY 06/25/19 Hydrochlorothiazide [Hydrodiuril 12.5 mg Tablet] 1 tab PO DAILY 07/01/19 Reason(s) for Admission: Ceasarean Section-Repeat Procedures: None Intrapartum Procedure(s): : Low Cervical, Transverse - Diagnosis Test Laboratory: Temp Pulse Resp BP Pulse Ox 98.1 F 95 22 H 131/71 H 100 07/08/19 07:54 07/08/19 07:54 07/08/19 07:54 07/08/19 07:54 07/08/19 07:54 07/03/19 07/03/19 07/07/19 09:15 09:24 06:47 RBC 3.70 L 3.50 L Hgb 12.1 11.4 L Hct 35.5 L 33.8 L Urine Opiates Screen NEGATIVE - Discharge information/Instructions Discharge Activity: Balance Activity w/Rest, No Lifting Over 10 Pounds, No Lifting/Push/Pulling, Pelvic Rest, No tub bath Discharge Diet: Regular Disposition: HOME, SELF-CARE Follow up with: [facility] in: 5, Days
[2019-07-08 11:22] VITALS: BP 150/74
== END 2019-07-08 15:59 | disposition home or self-care (01) | DRG 784 ==
LOC: 2S 07-06 08:19
PROVIDERS: ADMIT Obstetrics & Gynecology; ATTEND Obstetrics & Gynecology
PROC: 0UB70ZZ Excision of Bilateral Fallopian Tubes, Open Approach (ICD-10-PCS; 2019-07-06)
PROC: 10D00Z1 Extraction of Products of Conception, Low, Open Approach (ICD-10-PCS; principal; 2019-07-06 11:45)
DX: O34.211 Maternal care for low transverse scar from previous cesarean delivery (principal); O10.02 Pre-existing essential hypertension complicating childbirth; N85.8 Other specified noninflammatory disorders of uterus; O16.4 Unspecified maternal hypertension, complicating childbirth; O24.425 Gestational diabetes mellitus in childbirth, controlled by oral hypoglycemic drugs; O99.214 Obesity complicating childbirth; E66.01 Morbid (severe) obesity due to excess calories; Z3A.38 38 weeks gestation of pregnancy; Z37.0 Single live birth; Z30.2 Encounter for sterilization
CPT/HCPCS: 1961; 36415; 80307; 81001; 82962; 85025; 85027; 86850; 86900; 86901; 88302; 93005; 93010; 94799; J1885; J2250; J2270; J2405; J2590; J3010; J3490; J7030; J7120

== ENCOUNTER 2019-07-01 10:10 | Outpatient (CLI) | payer MEDICAID ==
[2019-07-01 11:18] LABS: APPEARANCE,URINE CLOUDY; BILIRUBIN,URINE SMALL (NEGATIVE); CALCIUM OXALATE CRYSTALS,URINE MODERATE /HPF; COLOR,URINE AMBER; GLUCOSE, URINE NEGATIVE (NEGATIVE); KETONES,URINE NEGATIVE (NEGATIVE); LEUKOCYTE ESTERASE,URINE NEGATIVE (NEGATIVE); NITRITE,URINE NEGATIVE (NEGATIVE); PROTEIN,URINE 30 mg/dL (NEGATIVE); URINE SPECIFIC GRAVITY 1.033
[2019-07-01 11:34] LABS: URINE PROTEIN 5.4 mg/dL (<12)
[2019-07-01 11:37] LABS: URINE AMPHETAMINES SCREEN NEGATIVE; URINE BARBITURATES SCREEN NEGATIVE; URINE BENZODIAZEPINES SCREEN NEGATIVE; URINE COCAINE SCREEN NEGATIVE; URINE MARIJUANA (THC) SCREEN NEGATIVE; URINE METHADONE SCREEN NEGATIVE; URINE PHENCYCLIDINE SCREEN NEGATIVE
[2019-07-01 11:50] LABS: ABSOLUTE LYMPHOCYTES (AUTO) 1.4 10^3/uL (0.5-4.7); ABSOLUTE MONOCYTES (AUTO) 0.6 10^3/uL (0.1-1.4); ABSOLUTE NEUT (AUTO) 3.3 10^3/uL (1.7-8.2); BASOPHILS % (AUTO) 0.4 % (0-2); EOSINOPHILS % (AUTO) 0.7 % (0-6); HEMATOCRIT 32.9 % (36.0-47.0); HEMOGLOBIN 11.3 g/dL (12.0-15.5); LYMPHOCYTES % (AUTO) 26.9 % (13-45); MEAN CORPUSCULAR HEMOGLOBIN 32.6 pg (27.0-33.4); MEAN CORPUSCULAR HGB CONC 34.2 g/dL (32.0-36.0); MEAN CORPUSCULAR VOLUME 95 fl (80-97); MONOCYTES % (AUTO) 10.4 % (3-13); PLATELET COUNT 228 10^3/uL (150-450); RED BLOOD COUNT 3.45 10^6/uL (3.72-5.28); RED CELL DISTRIBUTION WIDTH 15.1 % (11.5-14.0); SEGMENTED NEUTROPHILS % (AUTO) 61.6 % (42-78); TOTAL CELLS COUNTED % (AUTO) 100 %; WHITE BLOOD COUNT 5.3 10^3/uL (4.0-10.5)
[2019-07-01 12:11] LABS: ALKALINE PHOSPHATASE 108 U/L (38-126); ANION GAP 7 (5-19); ASPARTATE AMINO TRANSFERASE 16 U/L (14-36); BILIRUBIN,DIRECT 0.2 mg/dL (0.0-0.4); BILIRUBIN,TOTAL 0.6 mg/dL (0.2-1.3); BLOOD UREA NITROGEN 8 mg/dL (7-20); CALCIUM 8.9 mg/dL (8.4-10.2); CARBON DIOXIDE 22 mmol/L (22-30); CHLORIDE 107 mmol/L (98-107); GLUCOSE 119 mg/dL (75-110); POTASSIUM 3.9 mmol/L (3.6-5.0); TOTAL PROTEIN 5.7 g/dL (6.3-8.2); URIC ACID 4.5 mg/dL (2.5-6.2)
== END 2019-07-01 12:33 | disposition home or self-care (01) ==
LOC: LC 10:10
PROVIDERS: ATTEND Obstetrics & Gynecology
DX: O24.415 Gestational diabetes mellitus in pregnancy, controlled by oral hypoglycemic drugs (principal); O16.3 Unspecified maternal hypertension, third trimester; Z3A.36 36 weeks gestation of pregnancy
CPT/HCPCS: 36415; 59025; 80053; 80307; 81001; 82570; 83615; 84156; 84550; 85025

== ENCOUNTER 2019-07-13 19:12 | Inpatient (IN) | payer MEDICAID ==
[2019-07-13] MEDS ORDERED: HYDRALAZINE HCL INJ/PF 20 MG/1 ML SDV IV ONE ×3 (20:27→22:29)
[2019-07-13 21:36] LABS: ABSOLUTE BASOPHILS # (AUTO) 0.1 10^3/uL (0.0-0.2); ABSOLUTE EOSINOPHILS # (AUTO) 0.1 10^3/uL (0.0-0.6); ABSOLUTE LYMPHOCYTES (AUTO) 1.6 10^3/uL (0.5-4.7); ABSOLUTE MONOCYTES (AUTO) 0.4 10^3/uL (0.1-1.4); ABSOLUTE NEUT (AUTO) 3.4 10^3/uL (1.7-8.2); HEMATOCRIT 35.8 % (36.0-47.0); HEMOGLOBIN 12.1 g/dL (12.0-15.5); MEAN CORPUSCULAR HEMOGLOBIN 32.4 pg (27.0-33.4); MEAN CORPUSCULAR HGB CONC 33.7 g/dL (32.0-36.0); MEAN CORPUSCULAR VOLUME 96 fl (80-97); MONOCYTES % (AUTO) 7.8 % (3-13); PLATELET COUNT 334 10^3/uL (150-450); RED BLOOD COUNT 3.73 10^6/uL (3.72-5.28); RED CELL DISTRIBUTION WIDTH 15.5 % (11.5-14.0); SEGMENTED NEUTROPHILS % (AUTO) 60.2 % (42-78); TOTAL CELLS COUNTED % (AUTO) 100 %; WHITE BLOOD COUNT 5.6 10^3/uL (4.0-10.5)
--- NOTE | 2019-07-13 21:55 | ER Document Report ---
ED Blood Pressure Problem - General Chief Complaint: High Blood Pressure Stated Complaint: HIGH BLOOD PRESSURE AND HEADACHE Time Seen by Provider: 07/13/19 20:17 Mode of Arrival: Ambulatory Information source: Patient TRAVEL OUTSIDE OF THE [place] IN LAST 30 DAYS: No - HPI Notes: Patient presents complaint of high blood pressure. She states she gave one week ago. She states before she became she had a problem with high blood pressure. She states she was on 3 different medications before becoming . Patient states after she got they put her on 2 medicines hydrochlorothiazide and atenolol which she is still on. She states she went to her [facility] [employer] doctor today and her blood pressure was 130/80 so she was discharged home. She states tonight when she took it however it was elevated so she came to the hospital. She states she really has no other symptoms other than a mild headache. No shortness of breath or chest pain. She has not felt lightheaded or dizzy. The headache is been very mild bilateral aching. No radiation of the headache. Nothing makes it better or worse. - Related Data Allergies/Adverse Reactions: clindamycin [Clindamycin] Allergy (Verified 07/01/19 10:24) Anaphylactoid Past Medical History - General Information source: Patient - Social History Smoking Status: Never Smoker Frequency of alcohol use: None Drug Abuse: None Family History: Reviewed & Not Pertinent, Hypertension, Other Patient has suicidal ideation: No Patient has homicidal ideation: No - Past Medical History Cardiac Medical History: Reports: Hx Hypertension Denies: Hx Congestive Heart Failure, Hx Coronary Artery Disease, Hx Heart Attack, Hx Heart Murmur Pulmonary Medical History: Denies: Hx Asthma Neurological Medical History: Endocrine Medical History: Reports: Hx Hypothyroidism. Denies: Hx Diabetes Mellitus Type 1. 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 Renal/ Medical History: Denies: Hx Peritoneal Dialysis Musculoskeletal Medical History: Reports Hx Musculoskeletal Deformity Skin Medical History: Reports Hx Cellulitis, Reports Hx MRSA Psychiatric Medical History: Reports: Hx Anxiety - Patient denies feeling more anxious of late., Hx Depression - AND ANXIETY Infectious Medical History: Reports: Hx MRSA Past Surgical History: Reports: Hx Breast Surgery - Right breast abscess incision and drainage, Hx Section - Immunizations Immunizations up to date: Yes Hx Diphtheria, Pertussis, Tetanus Vaccination: Yes - 2014 Review of Systems - Review of Systems Constitutional: denies: Chills, Fever EENT: denies: Nose pain, Nose congestion Cardiovascular: denies: Chest pain, Palpitations -: Yes All other systems reviewed and negative Physical Exam - Vital signs Vitals: Temp Pulse Resp BP Pulse Ox 98.3 F 58 L 20 158/95 H 98 07/13/19 19:25 07/13/19 19:25 07/13/19 19:25 07/13/19 19:25 07/13/19 19:25 Interpretation: Hypertensive - General General appearance: Appears well, Alert - HEENT Head: Normocephalic, Atraumatic Eyes: Normal Pupils: PERRL - Respiratory Respiratory status: No respiratory distress Chest status: Nontender Breath sounds: Normal Chest palpation: Normal - Cardiovascular Rhythm: Regular Heart sounds: Normal auscultation Murmur: No - Abdominal Inspection: Normal Distension: No distension Bowel sounds: Normal Tenderness: Nontender Organomegaly: No organomegaly - Back Back: Normal, Nontender - Extremities General upper extremity: Normal inspection, Nontender, Normal color, Normal ROM, Normal temperature General lower extremity: Normal inspection, Nontender, Normal color, Normal ROM, Normal temperature, Normal weight bearing. No: Jose Alfredo's sign - Neurological Neuro grossly intact: Yes Cognition: Normal Orientation: AAOx4 Noah Coma Scale Eye Opening: Spontaneous Noah Coma Scale Verbal: Oriented Noah Coma Scale Motor: Obeys Commands Noah Coma Scale Total: 15 Speech: Normal Motor strength normal: LUE, RUE, LLE, RLE Sensory: Normal - Psychological Associated symptoms: Normal affect, Normal mood - Skin Skin Temperature: Warm Skin Moisture: Dry Skin Color: Normal Course - Re-evaluation Re-evalutation: 07/13/19 21:54 I called and discussed the case with Dr. clayton. She asked me to give the patient some medicine for blood pressure and check laboratories and call her back. At this time patient received 5 of hydralazine but her blood pressure is still 165/100. She denies any symptoms. A repeat dose of hydralazine will be given. 07/13/19 23:13 Patient reexamined just now. She states she feels mildly short of breath. However her sats are normal and she does not have any labored breathing. Her lungs are clear. Her blood pressure is 158/100 after 20 of hydralazine. I did speak with Dr. clayton and the patient will be admitted to the labor and delivery floor. labs unremarkable - Vital Signs Vital signs: Temp Pulse Resp BP Pulse Ox 98.3 F 58 L 20 165/102 H 98 07/13/19 19:25 07/13/19 19:25 07/13/19 19:25 07/13/19 19:50 07/13/19 19:25 - Laboratory Result Diagrams: 07/13/19 21:12 07/13/19 22:35 Laboratory results interpreted by me: 07/13/19 07/13/19 07/13/19 20:28 21:12 22:35 Hct 35.8 L RDW 15.5 H Albumin 3.3 L Urine Blood LARGE H Discharge - Discharge Clinical Impression: Hypertension Qualifiers: Hypertension type: essential hypertension Qualified Code(s): I10 - Essential (primary) hypertension Condition: Stable Disposition: ADMITTED INPATIENT Admitting Provider: matilde Unit Admitted: Labor and Delivery
[2019-07-13 22:09] LABS: APPEARANCE,URINE CLEAR; BILIRUBIN,URINE NEGATIVE (NEGATIVE); COLOR,URINE STRAW; GLUCOSE, URINE NEGATIVE (NEGATIVE); KETONES,URINE NEGATIVE (NEGATIVE); LEUKOCYTE ESTERASE,URINE NEGATIVE (NEGATIVE); NITRITE,URINE NEGATIVE (NEGATIVE); PROTEIN,URINE NEGATIVE (NEGATIVE); URINE SPECIFIC GRAVITY 1.005; UROBILINOGEN,URINE NEGATIVE mg/dL (<2.0)
[2019-07-13 23:01] LABS: ALBUMIN 3.3 g/dL (3.5-5.0); ALKALINE PHOSPHATASE 100 U/L (38-126); ANION GAP 7 (5-19); ASPARTATE AMINO TRANSFERASE 36 U/L (14-36); BILIRUBIN,DIRECT 0.2 mg/dL (0.0-0.4); BILIRUBIN,TOTAL 0.7 mg/dL (0.2-1.3); BLOOD UREA NITROGEN 11 mg/dL (7-20); CALCIUM 9.2 mg/dL (8.4-10.2); CARBON DIOXIDE 28 mmol/L (22-30); CHLORIDE 103 mmol/L (98-107); GLUCOSE 88 mg/dL (75-110); POTASSIUM 3.8 mmol/L (3.6-5.0); TOTAL PROTEIN 6.3 g/dL (6.3-8.2)
[2019-07-14] MEDS ORDERED: ACETAMINOPHEN 325 MG TABLET ONE (01:49)
[2019-07-14] MEDS ORDERED: ZOLPIDEM TARTRATE 5 MG TABLET PO PRN (01:54)
[2019-07-14] MEDS: ACETAMINOPHEN 325 MG TABLET PO PRN ×3 (01:54→20:16)
--- NOTE | 2019-07-14 01:54 | PDOC H&P ---
History of Present Illness Admission Date/PCP: 07/13/19 23:26 Patient complains of: Headache and elevated blood pressure History of Present Illness: ZAN SPENCER is a 33 year old , who is one-week status post scheduled, repeat section, presented to the emergency department secondary to a persistent headache and elevated blood pressure. This patient has chronic hypertension during the , she was on atenolol 5 mg and HCTZ 12.5 mg. Patient was placed on on labetalol, by M, and discontinue use secondary to headaches. Patient was seen in the office yesterday and did have elevated blood pressures in the office. Her incision is well-healed. She has no complaints of excessive vaginal bleeding. Past Medical History 1 Baby 1 Delivery: Spontaneous Vaginal Delivery 2 Baby 2 Delivery: : Low Cervical, Transverse 3 Baby 3 Delivery: : Low Cervical, Transverse Cardiac Medical History: Reports: Hypertension Denies: Congestive Heart Failure, Coronary Artery Disease, Myocardial Infarction, Heart Murmur Pulmonary Medical History: Denies: Asthma Neurological Medical History: Endocrine Medical History: Reports: Hypothyroidism Denies: Diabetes Mellitus Type 1 Comment Only: Diabetes Mellitus Type 2 - Borderline in the past. Musculoskeltal Medical History: Psychiatric Medical History: Reports: Depression - AND ANXIETY Infectious Medical History: Reports: Methicillin-Resistant Staph Aureus Past Surgical History Past Surgical History: Reports: Section Social History Smoking Status: Never Smoker Frequency of Alcohol Use: Occasional Hx Recreational Drug Use: No Family History Family History: Reviewed & Not Pertinent, Hypertension, Other Parental Family History Reviewed: No - n/a Children Family History Reviewed: NA Sibling(s) Family History Reviewed.: NA Medication/Allergy Home Medications: Atenolol [Tenormin] 25 mg PO DAILY 07/11/16 No122/Iron/Folic Acid [ Multi Tablet] 1 tab PO DAILY 06/25/19 Hydrochlorothiazide [Hydrodiuril 12.5 mg Tablet] 1 tab PO DAILY 07/01/19 Ibuprofen [Motrin 800 mg Tablet] 800 mg PO Q6 #60 tablet 07/08/19 Oxycodone HCl/Acetaminophen [Percocet 5-325 mg Tablet] 1 tab PO Q4HP PRN #30 tablet 07/08/19 Allergies/Adverse Reactions: clindamycin [Clindamycin] Allergy (Verified 07/01/19 10:24) Anaphylactoid Review of Systems Constitutional: PRESENT: headache(s) Cardiovascular: PRESENT: other - "My blood pressure was high" Gastrointestinal: ABSENT: as per HPI, abdominal pain, bloating, coffee ground emesis, constipation, diarrhea, dysphagia, heartburn, hematemesis, hematochezia, melena, nausea, vomiting, other Physical Exam - Physical Exam Vital Signs: Temp Pulse Resp BP Pulse Ox 98.1 F 65 18 137/80 H 100 07/14/19 00:53 07/14/19 00:53 07/14/19 00:53 07/14/19 00:53 07/14/19 00:53 Intake & Output 07/12/19 07/13/19 07/14/19 06:59 06:59 06:59 Weight 138.2 kg General appearance: PRESENT: no acute distress Respiratory exam: PRESENT: clear to auscultation sang Cardiovascular exam: PRESENT: RRR GI/Abdominal exam: PRESENT: normal bowel sounds, soft Extremities exam: PRESENT: +2 edema Result Laboratory Results: 07/13/19 21:12 07/13/19 22:35 07/13/19 07/13/19 07/13/19 20:28 21:12 21:12 WBC 5.6 RBC 3.73 Hgb 12.1 Hct 35.8 L MCV 96 MCH 32.4 MCHC 33.7 RDW 15.5 H Plt Count 334 Seg Neutrophils % 60.2 Lymphocytes % 29.0 Monocytes % 7.8 Eosinophils % 2.0 Basophils % 1.0 Absolute Neutrophils 3.4 Absolute Lymphocytes 1.6 Absolute Monocytes 0.4 Absolute Eosinophils 0.1 Absolute Basophils 0.1 Sodium Cancelled Potassium Cancelled Chloride Cancelled Carbon Dioxide Cancelled Anion Gap Cancelled BUN Cancelled Creatinine Cancelled Est GFR ( Amer) Cancelled Est GFR (Non-Af Amer) Cancelled Glucose Cancelled Calcium Cancelled Total Bilirubin Cancelled AST Cancelled Alkaline Phosphatase Cancelled Total Protein Cancelled Albumin Cancelled Urine Color STRAW Urine Appearance CLEAR Urine pH 6.0 Ur Specific [place] 1.005 Urine Protein NEGATIVE Urine Glucose (UA) NEGATIVE Urine Ketones NEGATIVE Urine Blood LARGE H Urine Nitrite NEGATIVE Ur Leukocyte Esterase NEGATIVE Urine WBC (Auto) 1 Urine RBC (Auto) 2 07/13/19 22:35 WBC RBC Hgb Hct MCV MCH MCHC RDW Plt Count Seg Neutrophils % Lymphocytes % Monocytes % Eosinophils % Basophils % Absolute Neutrophils Absolute Lymphocytes Absolute Monocytes Absolute Eosinophils Absolute Basophils Sodium 137.6 Potassium 3.8 Chloride 103 Carbon Dioxide 28 Anion Gap 7 BUN 11 Creatinine 0.67 Est GFR ( Amer) > 60 Est GFR (Non-Af Amer) > 60 Glucose 88 Calcium 9.2 Total Bilirubin 0.7 AST 36 Alkaline Phosphatase 100 Total Protein 6.3 Albumin 3.3 L Urine Color Urine Appearance Urine pH Ur Specific [place] Urine Protein Urine Glucose (UA) Urine Ketones Urine Blood Urine Nitrite Ur Leukocyte Esterase Urine WBC (Auto) Urine RBC (Auto) Assessment & Plan - Diagnosis (1) Chronic hypertension Is this a current diagnosis for this admission?: Yes (2) Headache Qualifiers: Headache chronicity pattern: acute headache Intractability: intractable Is this a current diagnosis for this admission?: Yes (3) Uncontrolled hypertension Is this a current diagnosis for this admission?: Yes (5) essential hypertension during , delivered Is this a current diagnosis for this admission?: Yes (6) Status post repeat low transverse section Is this a current diagnosis for this admission?: Yes - Time Critical Time spent with patient: 15-24 minutes - Plan Summary Plan Summary: 1. Observation overnight 2. Hypertension management 3. Diuresis
[2019-07-14] MEDS ORDERED: IBUPROFEN 800 MG TABLET PO PRN (01:58)
[2019-07-14] MEDS ORDERED: FUROSEMIDE 40 MG TABLET PO ONE (02:15)
[2019-07-14] MEDS ORDERED: HYDRALAZINE HCL INJ/PF 20 MG/1 ML SDV IV ONE (09:00)
[2019-07-14] MEDS: LISINOPRIL 10 MG TABLET PO SCH (09:32)
[2019-07-14] MEDS: PRENATAL VITAMIN W DHA CAPSULE PO SCH (09:33)
[2019-07-14] MEDS: FERROUS SULFATE 325 MG TABLET PO SCH ×2 (09:33→18:14)
[2019-07-14] MEDS: ATENOLOL 50 MG TABLET PO SCH ×2 (09:38→21:18)
[2019-07-15] MEDS: FUROSEMIDE 40 MG TABLET PO SCH (07:43)
[2019-07-15] MEDS: FERROUS SULFATE 325 MG TABLET PO SCH ×2 (10:23→17:39)
[2019-07-15] MEDS: PRENATAL VITAMIN W DHA CAPSULE PO SCH (10:23)
[2019-07-15] MEDS: LISINOPRIL 10 MG TABLET PO SCH (10:24)
[2019-07-15] MEDS: ATENOLOL 50 MG TABLET PO SCH ×2 (10:24→21:37)
[2019-07-15] MEDS: BUSPIRONE HCL 10 MG TABLET PO SCH ×2 (14:49→21:38)
--- NOTE | 2019-07-15 22:13 | PDOC PROGRESS REPORT ---
Subjective Progress Note for:: 07/15/19 Subjective:: feeling ok, still reporting LE edema. No KNOX/blurry vision Reason For Visit: ELEVATED BLOOD PRESSURE 1 WEEK Physical Exam - Physical Exam Vital Signs: Temp Pulse Resp BP Pulse Ox 98.4 F 81 20 130/80 H 100 07/15/19 19:45 07/15/19 19:45 07/15/19 19:45 07/15/19 19:45 07/15/19 19:45 Intake & Output 07/14/19 07/15/19 07/16/19 06:59 06:59 06:59 Weight 138.2 kg General appearance: PRESENT: no acute distress, well-developed, well-nourished Head exam: PRESENT: atraumatic, normocephalic Respiratory exam: PRESENT: clear to auscultation sang, symmetrical, unlabored Cardiovascular exam: PRESENT: RRR. ABSENT: diastolic murmur, rubs, systolic murmur GI/Abdominal exam: PRESENT: normal bowel sounds, soft. ABSENT: distended, guarding, mass, organolmegaly, rebound, tenderness Rectal exam: PRESENT: deferred Extremities exam: PRESENT: full ROM. ABSENT: calf tenderness, clubbing, pedal edema Musculoskeletal exam: PRESENT: ambulatory Neurological exam: PRESENT: alert, awake, oriented to person, oriented to place, oriented to time, oriented to situation, CN II-XII grossly intact. ABSENT: motor sensory deficit Psychiatric exam: PRESENT: appropriate affect, normal mood. ABSENT: homicidal ideation, suicidal ideation Skin exam: PRESENT: dry, intact, warm. ABSENT: cyanosis, rash Result Laboratory Results: 07/13/19 21:12 07/13/19 22:35 Status: Imported from PACS Assessment & Plan - Diagnosis (1) Chronic hypertension Is this a current diagnosis for this admission?: Yes Plan: Now on lasix 40mg po daily, Atenolol 25mg BID and Lisinopril 10mg po daily. Will add Buspar 10mg PO TID for anxiety which should also help with BPs and anxiety. If adjustments continue to improve BPs then will likely be able to go home tomorrow. - Time Time Spent with patient: Less than 15 minutes Smoking Cessation Education: 3 to 10 minutes Medications reviewed and adjusted accordingly: Yes Anticipated discharge: Home Within: within 24 hours - Inpatient Certification Based on my medical assessment, after consideration of the patient's c omorbidities, presenting symptoms, or acuity I expect that the services needed warrant INPATIENT care.: Yes I certify that my determination is in accordance with my understanding of Medicare's requirements for reasonable and necessary INPATIENT services [42 CFR 412.3e].: Yes Medical Necessity: Need Close Monitoring Due to Risk of Patient Decompensation Post Hospital Care: D/C Material Scheduler Documentation
[2019-07-16] MEDS: BUSPIRONE HCL 10 MG TABLET PO SCH (05:50)
[2019-07-16] MEDS: FERROUS SULFATE 325 MG TABLET PO SCH (09:53)
[2019-07-16] MEDS: ATENOLOL 50 MG TABLET PO SCH (09:53)
[2019-07-16] MEDS: LISINOPRIL 10 MG TABLET PO SCH (09:53)
[2019-07-16] MEDS: PRENATAL VITAMIN W DHA CAPSULE PO SCH (09:53)
[2019-07-16] MEDS: FUROSEMIDE 40 MG TABLET PO SCH (09:53)
--- NOTE | 2019-07-16 13:47 | PDOC DISCHARGE SUMMARY ---
Final Diagnosis Discharge Date: 07/16/19 - Pt readmitted 2 days ago for elevated BP's, Hx of CHTN, s/p delivery on 07/06/19. Pt doing well today, denies headache, blurred vision. Bottlefeeding, - Final Diagnosis (1) Chronic hypertension Is this a current diagnosis for this admission?: Yes (2) Headache Is this a current diagnosis for this admission?: Yes (3) Hypertension Is this a current diagnosis for this admission?: Yes (4) edema Is this a current diagnosis for this admission?: Yes (5) essential hypertension during , delivered Is this a current diagnosis for this admission?: Yes (6) Uncontrolled hypertension Is this a current diagnosis for this admission?: Yes (7) Gestational diabetes mellitus, class A2 Is this a current diagnosis for this admission?: Yes (8) Status post repeat low transverse section Is this a current diagnosis for this admission?: Yes (9) bilateral tubal ligation Is this a current diagnosis for this admission?: Yes Discharge Data - Discharge Medication Prescriptions: Buspirone HCl [Buspar 10 mg Tablet] 10 mg PO Q8 #90 tablet Hydrochlorothiazide [Hydrodiuril 12.5 mg Tablet] 1 tab PO DAILY 30 Days #30 tab Lisinopril [Prinivil 10 mg Tablet] 10 mg PO DAILY #30 tablet Atenolol [Tenormin 50 mg Tablet] 50 mg PO Q12 #60 tablet Home Medications: No122/Iron/Folic Acid [ Multi Tablet] 1 tab PO DAILY 06/25/19 Ibuprofen [Motrin 800 mg Tablet] 800 mg PO Q6 #60 tablet 07/08/19 Oxycodone HCl/Acetaminophen [Percocet 5-325 mg Tablet] 1 tab PO Q4HP PRN #30 tablet 07/08/19 Atenolol [Tenormin 50 mg Tablet] 50 mg PO Q12 #60 tablet 07/16/19 Buspirone HCl [Buspar 10 mg Tablet] 10 mg PO Q8 #90 tablet 07/16/19 Hydrochlorothiazide [Hydrodiuril 12.5 mg Tablet] 1 tab PO DAILY 30 Days #30 tab 07/16/19 Lisinopril [Prinivil 10 mg Tablet] 10 mg PO DAILY #30 tablet 07/16/19 Admission Note: uncontrolled hypertension, POD #8 - Diagnosis Test Laboratory: Temp Pulse Resp BP Pulse Ox 98.0 F 70 16 132/87 H 100 07/16/19 11:14 07/16/19 11:14 07/16/19 11:14 07/16/19 11:14 07/16/19 11:14 07/13/19 21:12 RBC 3.73 Hgb 12.1 Hct 35.8 L - Discharge information/Instructions Discharge Activity: Activity As Tolerated, No Driving, No Lifting Over 10 Pounds, Pelvic Rest Discharge Diet: As Tolerated, Regular Disposition: HOME, SELF-CARE Follow up with: [facility] in: 1, Weeks - for BP check and repeat Liver Functions/ CMP
[2019-07-16 13:54] VITALS: BP 144/80
== END 2019-07-16 14:25 | disposition home or self-care (01) | DRG 776 ==
LOC: ER 19:12 → EH 23:26 → 2S 07-14 00:38
PROVIDERS: ADMIT Obstetrics & Gynecology; ATTEND Obstetrics & Gynecology
DX: O10.03 Pre-existing essential hypertension complicating the puerperium (principal); R51 Headache; O99.285 Endocrine, nutritional and metabolic diseases complicating the puerperium; E03.9 Hypothyroidism, unspecified; O99.345 Other mental disorders complicating the puerperium; F53.0 Postpartum depression
CPT/HCPCS: 36415; 80053; 81001; 85025; 96374; 96376; 99284; J0360; J3490

== ENCOUNTER 2019-07-16 19:50 | Emergency (ER) | payer MEDICAID ==
--- NOTE | 2019-07-16 21:04 | ER Document Report ---
ED Medical Screen (RME) - General Chief Complaint: High Blood Pressure Stated Complaint: HIGH BLOOD PRESSURE Time Seen by Provider: 07/16/19 21:01 Mode of Arrival: Ambulatory Information source: Patient Notes: 33-year-old female presented to ED for high blood pressure. She states she just had a baby a week ago. She was seen up on second floor for high blood pressure after delivering her baby. She states she was discharged this afternoon with the elevated blood pressure and started back on lisinopril 10 mg. She states before delivering the baby she was on lisinopril with hydrochlorothiazide. She states she is not having any nausea vomiting headaches or blurred vision at this time but when she was admitted to the second floor she was having a headache. Patient is alert oriented respirations regular and unlabored speaking in full sentences. I have greeted and performed a rapid initial assessment of this patient. A comprehensive ED assessment and evaluation of the patient, analysis of test results and completion of medical decision making process will be conducted by an additional ED providers. TRAVEL OUTSIDE OF THE [place] IN LAST 30 DAYS: No - Related Data Allergies/Adverse Reactions: clindamycin [Clindamycin] Allergy (Verified 07/01/19 10:24) Anaphylactoid Past Medical History - Social History Family history: Reviewed & Not Pertinent - Past Medical History Cardiac Medical History: Reports: Hx Hypertension Denies: Hx Congestive Heart Failure, Hx Coronary Artery Disease, Hx Heart Attack, Hx Heart Murmur Pulmonary Medical History: Denies: Hx Asthma Neurological Medical History: Endocrine Medical History: Reports: Hx Hypothyroidism. Denies: Hx Diabetes Mellitus Type 1. 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 Renal/ Medical History: Denies: Hx Peritoneal Dialysis Musculoskeltal Medical History: Reports Hx Musculoskeletal Deformity Skin Medical History: Reports Hx Cellulitis, Reports Hx MRSA Psychiatric Medical History: Reports: Hx Anxiety - Patient denies feeling more anxious of late., Hx Depression - AND ANXIETY Infectious Medical History: Reports: Hx MRSA Past Surgical History: Reports: Hx Breast Surgery - Right breast abscess incision and drainage, Hx Section - Immunizations Immunizations up to date: Yes Hx Diphtheria, Pertussis, Tetanus Vaccination: Yes - 2014 History of Influenza Vaccine for 08/2017 - 01/2018 Season: No Physical Exam - Vital signs Vitals: Temp Pulse Resp BP Pulse Ox 98.7 F 67 15 179/82 H 100 07/16/19 20:16 07/16/19 20:16 07/16/19 20:16 07/16/19 20:16 07/16/19 20:16 Course - Vital Signs Vital signs: Temp Pulse Resp BP Pulse Ox 98.7 F 67 15 179/82 H 100 07/16/19 20:16 07/16/19 20:16 07/16/19 20:16 07/16/19 20:16 07/16/19 20:16
[2019-07-16 22:37] LABS: ABSOLUTE EOSINOPHILS # (AUTO) 0.1 10^3/uL (0.0-0.6); ABSOLUTE LYMPHOCYTES (AUTO) 1.9 10^3/uL (0.5-4.7); ABSOLUTE MONOCYTES (AUTO) 0.4 10^3/uL (0.1-1.4); ABSOLUTE NEUT (AUTO) 3.8 10^3/uL (1.7-8.2); BASOPHILS % (AUTO) 0.5 % (0-2); EOSINOPHILS % (AUTO) 1.3 % (0-6); HEMATOCRIT 36.4 % (36.0-47.0); HEMOGLOBIN 12.3 g/dL (12.0-15.5); LYMPHOCYTES % (AUTO) 29.9 % (13-45); MEAN CORPUSCULAR HEMOGLOBIN 32.2 pg (27.0-33.4); MEAN CORPUSCULAR HGB CONC 33.6 g/dL (32.0-36.0); MEAN CORPUSCULAR VOLUME 96 fl (80-97); MONOCYTES % (AUTO) 6.8 % (3-13); PLATELET COUNT 364 10^3/uL (150-450); RED CELL DISTRIBUTION WIDTH 14.9 % (11.5-14.0); SEGMENTED NEUTROPHILS % (AUTO) 61.5 % (42-78); TOTAL CELLS COUNTED % (AUTO) 100 %; WHITE BLOOD COUNT 6.2 10^3/uL (4.0-10.5)
[2019-07-16 22:44] LABS: APPEARANCE,URINE SLIGHTLY-CLOUDY; BILIRUBIN,URINE NEGATIVE (NEGATIVE); COLOR,URINE YELLOW; GLUCOSE, URINE NEGATIVE (NEGATIVE); KETONES,URINE NEGATIVE (NEGATIVE); LEUKOCYTE ESTERASE,URINE MODERATE (NEGATIVE); NITRITE,URINE NEGATIVE (NEGATIVE); PROTEIN,URINE NEGATIVE (NEGATIVE); URINE SPECIFIC GRAVITY 1.012; UROBILINOGEN,URINE NEGATIVE mg/dL (<2.0)
[2019-07-16 22:52] LABS: ALBUMIN 3.5 g/dL (3.5-5.0); ALKALINE PHOSPHATASE 99 U/L (38-126); ANION GAP 7 (5-19); ASPARTATE AMINO TRANSFERASE 22 U/L (14-36); BILIRUBIN,DIRECT 0.2 mg/dL (0.0-0.4); BILIRUBIN,TOTAL 0.6 mg/dL (0.2-1.3); BLOOD UREA NITROGEN 11 mg/dL (7-20); CALCIUM 9.1 mg/dL (8.4-10.2); CARBON DIOXIDE 27 mmol/L (22-30); CHLORIDE 104 mmol/L (98-107); GLUCOSE 89 mg/dL (75-110); POTASSIUM 3.9 mmol/L (3.6-5.0); TOTAL PROTEIN 6.6 g/dL (6.3-8.2)
[2019-07-16] MEDS ORDERED: LISINOPRIL 10 MG TABLET PO ONE (23:25)
--- NOTE | 2019-07-16 23:51 | ER Document Report ---
Entered by MELANIE CROUCH SCRIBE 07/16/19 1463 Acting as scribe for:EMRE HICKS MD ED Blood Pressure Problem - General Chief Complaint: High Blood Pressure Stated Complaint: HIGH BLOOD PRESSURE Time Seen by Provider: 07/16/19 21:01 Mode of Arrival: Ambulatory Information source: Patient Notes: Patient is a 33-year-old female who gave on 07/06/2019 via who presents to the emergency department today with complaints of continued elevated blood pressures. Patient was admitted on 07/13 for hypertension and was discharged today on lisinopril once a day and atenolol twice a day. Patient states prior to being she was on these same medications however prior to being her lisinopril was "double the strength" of what she was sent home with today. TRAVEL OUTSIDE OF THE [place] IN LAST 30 DAYS: No - Related Data Allergies/Adverse Reactions: clindamycin [Clindamycin] Allergy (Verified 07/01/19 10:24) Anaphylactoid Past Medical History - General Information source: Patient - Social History Smoking Status: Former Smoker Cigarette use (# per day): No Frequency of alcohol use: None Drug Abuse: None Lives with: Family Family History: Reviewed & Not Pertinent, Hypertension, Other Patient has suicidal ideation: No Patient has homicidal ideation: No - Past Medical History Cardiac Medical History: Reports: Hx Hypertension Pulmonary Medical History: Neurological Medical History: Endocrine Medical History: Reports: Hx HypothyroidismComment Only: Hx Diabetes Mellitus Type 2 - Borderline in the past. Musculoskeletal Medical History: Reports Hx Musculoskeletal Deformity Skin Medical History: Reports Hx Cellulitis, Reports Hx MRSA Psychiatric Medical History: Reports: Hx Anxiety - Patient denies feeling more anxious of late., Hx Depression - AND ANXIETY Infectious Medical History: Reports: Hx MRSA Past Surgical History: Reports: Hx Breast Surgery - Right breast abscess incision and drainage, Hx Section - Immunizations Immunizations up to date: Yes Hx Diphtheria, Pertussis, Tetanus Vaccination: Yes - 2014 Review of Systems - Review of Systems Constitutional: No symptoms reported EENT: No symptoms reported Cardiovascular: See HPI, Other - hypertension Respiratory: No symptoms reported Gastrointestinal: No symptoms reported Genitourinary: No symptoms reported Female Genitourinary: No symptoms reported Musculoskeletal: No symptoms reported Skin: No symptoms reported Hematologic/Lymphatic: No symptoms reported Neurological/Psychological: No symptoms reported -: Yes All other systems reviewed and negative Physical Exam - Vital signs Vitals: Temp Pulse Resp BP Pulse Ox 98.7 F 67 15 179/82 H 100 07/16/19 20:16 07/16/19 20:16 07/16/19 20:16 07/16/19 20:16 07/16/19 20:16 - Notes Notes: Physical Exam: General: Alert, morbidly obese. HEENT: Normocephalic. Atraumatic. PERRL. Extraocular movements intact. Oropharynx clear. Neck: Supple. Non-tender. Respiratory: No respiratory distress. Clear and equal breath sounds bilaterally. Cardiovascular: Regular rate and rhythm. Abdominal: Morbidly obese. scar is healing appropriately. Non-tender. No distension. Normal Bowel Sounds. Back: No gross abnormalities. Extremities: Moves all four extremities. Upper extremities: Normal inspection. Normal ROM. Lower extremities: Normal inspection. No edema. Normal ROM. Neurological: Normal cognition. AAOx4. Normal speech. Psychological: Normal affect. Normal Mood. Skin: Warm. Dry. Normal color. Course - Re-evaluation Re-evalutation: 07/17/19 01:51 Blood pressure is now down to 142/72, patient will be discharged with recommendations to increase her lisinopril to 20 mg daily. - Vital Signs Vital signs: Temp Pulse Resp BP Pulse Ox 98.7 F 67 15 152/84 H 100 07/16/19 20:16 07/16/19 20:16 07/16/19 20:16 07/16/19 23:45 07/16/19 20:16 - Laboratory Result Diagrams: 07/16/19 22:00 07/16/19 22:00 Laboratory results interpreted by me: 07/16/19 07/16/19 22:00 22:00 RDW 14.9 H Urine Blood LARGE H Ur Leukocyte Esterase MODERATE H - EKG Interpretation by Al EKG shows normal: Sinus rhythm, [place], Intervals, QRS Complexes, ST-T Waves Rate: Normal - 58 Rhythm: NSR Discharge - Discharge Clinical Impression: High blood pressure Qualifiers: Hypertension type: essential hypertension Qualified Code(s): I10 - Essential (primary) hypertension Condition: Stable Disposition: HOME, SELF-CARE Additional Instructions: Increase your lisinopril dosing to 20 mg daily. Monitor your blood pressure at home. Follow-up with your primary care provider if increasing the lisinopril to 20 mg daily does not control your blood pressure. RETURN TO THE EMERGENCY ROOM IF ANY NEW OR WORSENING SYMPTOMS. Scribe Attestation: 07/16/19 23:51 I personally performed the services described in the documentation, reviewed and edited the documentation which was dictated to the scribe in my presence, and it accurately records my words and actions. I personally performed the services described in the documentation, reviewed and edited the documentation which was dictated to the scribe in my presence, and it accurately records my words and actions.
[2019-07-17 02:26] VITALS: BP 142/74
--- NOTE | 2019-07-17 12:23 | EKG REPORT ---
SEVERITY:- NORMAL ECG - SINUS RHYTHM : Confirmed by: Shameka Santo MD 17-Jul-2019 12:22:31
== END 2019-07-17 02:26 | disposition home or self-care (01) ==
LOC: ER 19:50
DX: O90.9 Complication of the puerperium, unspecified (principal); I10 Essential (primary) hypertension; E66.01 Morbid (severe) obesity due to excess calories; Z88.3 Allergy status to other anti-infective agents; Z86.14 Personal history of Methicillin resistant Staphylococcus aureus infection
CPT/HCPCS: 36415; 85025; 80053; 81001; J3490; 93005; 93010

== ENCOUNTER → 2019-09-28 | Outpatient (CLI) | payer MEDICAID ==
[2019-09-28 14:44] LABS: ANION GAP 7 (5-19); BLOOD UREA NITROGEN 11 mg/dL (7-20); CALCIUM 9.1 mg/dL (8.4-10.2); CARBON DIOXIDE 29 mmol/L (22-30); CHLORIDE 105 mmol/L (98-107); GLUCOSE 107 mg/dL (75-110); POTASSIUM 4.1 mmol/L (3.6-5.0)
== END ==
LOC: OD 13:19
PROVIDERS: ATTEND Family Medicine
DX: I10 Essential (primary) hypertension (principal)
CPT/HCPCS: 36415; 80048

== ENCOUNTER → 2019-10-21 | Outpatient (CLI) | payer MEDICAID ==
--- NOTE | 2019-10-21 23:50 | XCELERA REPORT ---
[address] [address] Transthoracic Echocardiogram Report Name: ZAN SPENCER Age: 33 yrs Gender: Female : 1985 Patient Status: Preadmit Patient Location: [facility] Study Date: 10/21/2019 08:17 AM Height: 67 in Weight: 280 lb BSA: 2.3 m2 Procedure: A complete two-dimensional transthoracic echocardiogram was performed (2D, M-mode, spectral and color flow Doppler). The study was technically difficult with many images being suboptimal in quality. Reason For Study: LEG SWELLING Ordering Physician: BRETT VELASCO Performed By: Brandin Marroquin Interpretation Summary Left ventricular systolic function is normal. There is mild concentric left ventricular hypertrophy. The left ventricle is grossly normal size. Doppler measurements suggest pseudonormalized left ventricular relaxation, which is associated with grade II/IV or mild to moderate diastolic dysfunction Wall motion cannot be accurately commented on, but no definite regional wall motion abnormalities noted. The right ventricular systolic function is normal. The left atrium is mildly dilated. The right atrium is normal in size There is a mild amount of mitral regurgitation There is no mitral valve stenosis. No aortic regurgitation is present. There is no aortic valve stenosis There is a mild amount of tricuspid regurgitation Right ventricular systolic pressure is at the upper limits of normal The aortic root is not well visualized but is probably normal size. The inferior vena cava appeared normal and decreased > 50% with respiration (RAP 5-10 mmHg) There is no pericardial effusion. MMode/2D Measurements & Calculations RVDd: 4.5 cm LVIDd: 5.2 cm FS: 39.9 % Ao root diam: 2.5 cm IVSd: 0.85 cm LVIDs: 3.1 cm EDV(Teich): 130.2 ml Ao root area: 4.9 cm2 LVPWd: 0.88 cm ESV(Teich): 38.8 ml LA dimension: 3.7 cm EF(Teich): 70.2 % Doppler Measurements & Calculations MV E max kash: MV P1/2t max kash: Ao V2 max: LV V1 max P.9 cm/sec 98.0 cm/sec 141.2 cm/sec 5.7 mmHg MV A max kash: MV P1/2t: 68.7 msec Ao max PG: LV V1 max: 72.3 cm/sec MVA(P1/2t): 3.2 cm2 8.0 mmHg 119.5 cm/sec MV E/A: 1.2 MV dec slope: 417.4 cm/sec2 MV dec time: 0.22 sec PA V2 max: PI end-d kash: TR max kash: MV P1/2t-pr_phl: 103.7 cm/sec 97.7 cm/sec 294.5 cm/sec 68.7 msec PA max PG: TR max P.3 mmHg 34.7 mmHg Left Ventricle The left ventricle is grossly normal size. There is mild concentric left ventricular hypertrophy. Left ventricular systolic function is normal. Doppler measurements suggest pseudonormalized left ventricular relaxation, which is associated with grade II/IV or mild to moderate diastolic dysfunction. Wall motion cannot be accurately commented on, but no definite regional wall motion abnormalities noted. Right Ventricle The right ventricle is grossly normal size. The right ventricular systolic function is normal. Atria The right atrium is normal in size. The left atrium is mildly dilated. Interarterial septum not well visualized and not well dopplered. Cannot comment on ASD/PFO presence. Mitral Valve The mitral valve leaflets are sclerotic, but show no functional abnormalities. There is no mitral valve stenosis. There is a mild amount of mitral regurgitation. Aortic Valve The aortic valve is grossly normal. There is no aortic valve stenosis. No aortic regurgitation is present. Tricuspid Valve The tricuspid valve is not well visualized, but is grossly normal. There is no tricuspid stenosis. There is a mild amount of tricuspid regurgitation. Right ventricular systolic pressure is at the upper limits of normal. Pulmonic Valve The pulmonic valve is not well visualized. Great Vessels The aortic root is not well visualized but is probably normal size. The inferior vena cava appeared normal and decreased > 50% with respiration (RAP 5-10 mmHg). Effusions There is no pericardial effusion. : BRETT VELASCO Shyamal
== END ==
LOC: SP 07:53
PROVIDERS: ATTEND Family Medicine
DX: R60.0 Localized edema (principal)
CPT/HCPCS: 93306

== ENCOUNTER → 2019-12-30 | Outpatient (CLI) | payer MEDICAID ==
[2019-12-30 09:52] LABS: ALBUMIN 3.6 g/dL (3.5-5.0); ALKALINE PHOSPHATASE 70 U/L (38-126); ANION GAP 5 (5-19); ASPARTATE AMINO TRANSFERASE 17 U/L (14-36); BILIRUBIN,TOTAL 0.5 mg/dL (0.2-1.3); BLOOD UREA NITROGEN 14 mg/dL (7-20); CALCIUM 8.9 mg/dL (8.4-10.2); CARBON DIOXIDE 27 mmol/L (22-30); CHLORIDE 107 mmol/L (98-107); CHOLESTEROL 159.72 mg/dL (0-200); GLUCOSE 108 mg/dL (75-110); POTASSIUM 4.5 mmol/L (3.6-5.0); TRIGLYCERIDES 74 mg/dL (<150)
[2019-12-30 10:03] LABS: DIRECT LDL 121 mg/dL (<100)
== END ==
LOC: OD 08:22
PROVIDERS: ATTEND Family Medicine
DX: Z13.220 Encounter for screening for lipoid disorders (principal); Z86.32 Personal history of gestational diabetes
CPT/HCPCS: 36415; 80053; 80061; 83036

== ENCOUNTER → 2020-05-11 | Outpatient (CLI) | payer MEDICAID ==
[2020-05-11 11:04] LABS: ALBUMIN 3.8 g/dL (3.5-5.0); ALKALINE PHOSPHATASE 75 U/L (38-126); ASPARTATE AMINO TRANSFERASE 21 U/L (14-36); BILIRUBIN,DIRECT 0.1 mg/dL (0.0-0.4); BILIRUBIN,TOTAL 0.8 mg/dL (0.2-1.3); CHOLESTEROL 167.67 mg/dL (0-200); TRIGLYCERIDES 164 mg/dL (<150)
[2020-05-11 11:15] LABS: DIRECT LDL 114 mg/dL (<100)
[2020-05-11 11:17] LABS: VLDL CHOLESTEROL 32.8 mg/dL (10-31)
== END ==
LOC: OD 09:39
PROVIDERS: ATTEND Family Medicine
DX: E78.00 Pure hypercholesterolemia, unspecified (principal)
CPT/HCPCS: 36415; 80061; 80076

== ENCOUNTER 2020-07-21 17:53 | Emergency (ER) | payer MEDICAID ==
[2020-07-21] MEDS ORDERED: CLONIDINE HCL 0.1 MG TABLET PO ONE (18:04)
--- NOTE | 2020-07-21 18:09 | ER Document Report ---
ED Medical Screen (RME) - General Chief Complaint: High Blood Pressure Stated Complaint: HEADACHE/ELEVATED BLOOD PRESSURE Time Seen by Provider: 07/21/20 17:57 Primary Care Provider: BRETT VELASCO MD [Primary Care Provider] - Follow up as needed Mode of Arrival: Ambulatory Information source: Patient Notes: 34-year-old female presented to ED for elevated blood pressure. She states she has her foggy feeling to her eyes earlier she had a tingling in her head so she came to the emergency room. Her blood pressure in the triage was 202/112 manually. She states she did quit smoking yesterday. She states she is on blood pressure medicine and the doctor just added a new medication and her blood pressure still not going down. She states she does have thyroid problems with an enlarged thyroid but she is not on any medications for this as yet. We will get blood urine chest x-ray EKG and have her examined by another provider. Patient is very tearful and scared because her blood pressure is never been this high. States she is on clonidine 0.1 mg. She states that she took it this morning but has not taken the p.m. dose yet. I have ordered the dose for now. I have greeted and performed a rapid initial assessment of this patient. A comprehensive ED assessment and evaluation of the patient, analysis of test results and completion of medical decision making process will be conducted by an additional ED providers. TRAVEL OUTSIDE OF THE [place] IN LAST 30 DAYS: No - Related Data Allergies/Adverse Reactions: clindamycin [Clindamycin] Allergy (Verified 06/23/20 10:03) Anaphylactoid Home Medications: clonidine, triamterone, bisoprolol Past Medical History - Social History Chew tobacco use (# tins/day): No Frequency of alcohol use: None Drug Abuse: None Family history: Reviewed & Not Pertinent - Past Medical History Cardiac Medical History: Reports: Hx Hypertension Denies: Hx Congestive Heart Failure, Hx Coronary Artery Disease, Hx Heart Attack, Hx Heart Murmur Pulmonary Medical History: Denies: Hx Asthma Neurological Medical History: Endocrine Medical History: Reports: Hx Hypothyroidism. Denies: Hx Diabetes Mellitus Type 1. 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 Renal/ Medical History: Denies: Hx Peritoneal Dialysis Musculoskeltal Medical History: Reports Hx Musculoskeletal Deformity Skin Medical History: Reports Hx Cellulitis, Reports Hx MRSA Psychiatric Medical History: Reports: Hx Anxiety - Patient denies feeling more anxious of late., Hx Depression - AND ANXIETY Infectious Medical History: Reports: Hx MRSA Past Surgical History: Reports: Hx Breast Surgery - Right breast abscess incision and drainage, Hx Section - x2 - Immunizations Immunizations up to date: Yes Hx Diphtheria, Pertussis, Tetanus Vaccination: Yes - 2014 Physical Exam - Vital signs Vitals: Temp 97.8 F 07/21/20 17:59 Course - Vital Signs Vital signs: Temp Pulse Resp BP Pulse Ox 97.8 F 07/21/20 17:59 Doctor's Discharge - Discharge Referrals: BRETT VELASCO MD [Primary Care Provider] - Follow up as needed
--- NOTE | 2020-07-21 18:40 | RADIOLOGY REPORT (SQ) ---
EXAM DESCRIPTION: CHEST 2 VIEWS IMAGES COMPLETED DATE/TIME: 07/21/2020 6:21 pm REASON FOR STUDY: htn COMPARISON: 11/26/2018 EXAM PARAMETERS: NUMBER OF VIEWS: two views TECHNIQUE: Digital Frontal and Lateral radiographic views of the chest acquired. RADIATION DOSE: NA LIMITATIONS: none FINDINGS: LUNGS AND PLEURA: No opacities, masses or pneumothorax. No pleural effusion. MEDIASTINUM AND HILAR STRUCTURES: No masses or contour abnormalities. HEART AND VASCULAR STRUCTURES: Heart normal size. No evidence for failure. BONES: No acute findings. HARDWARE: None in the chest. OTHER: No other significant finding. IMPRESSION: NO ACUTE RADIOGRAPHIC FINDING IN THE CHEST. TECHNICAL DOCUMENTATION: JOB ID: [id number] [employer]- All Rights Reserved Reading location - IP/workstation name: [email or web address]
[2020-07-21 19:02] LABS: ABSOLUTE BASOPHILS # (AUTO) 0.1 10^3/uL (0.0-0.2); ABSOLUTE EOSINOPHILS # (AUTO) 0.2 10^3/uL (0.0-0.6); ABSOLUTE MONOCYTES (AUTO) 0.4 10^3/uL (0.1-1.4); ABSOLUTE NEUT (AUTO) 3.3 10^3/uL (1.7-8.2); BASOPHILS % (AUTO) 1.1 % (0-2); EOSINOPHILS % (AUTO) 2.8 % (0-6); HEMATOCRIT 40.5 % (36.0-47.0); HEMOGLOBIN 13.7 g/dL (12.0-15.5); MEAN CORPUSCULAR HEMOGLOBIN 33.8 pg (27.0-33.4); MEAN CORPUSCULAR HGB CONC 33.8 g/dL (32.0-36.0); MEAN CORPUSCULAR VOLUME 100 fl (80-97); MONOCYTES % (AUTO) 6.2 % (3-13); PLATELET COUNT 301 10^3/uL (150-450); RED BLOOD COUNT 4.06 10^6/uL (3.72-5.28); RED CELL DISTRIBUTION WIDTH 13.8 % (11.5-14.0); SEGMENTED NEUTROPHILS % (AUTO) 55.9 % (42-78); TOTAL CELLS COUNTED % (AUTO) 100 %
[2020-07-21 19:21] LABS: ALBUMIN 3.8 g/dL (3.5-5.0); ALKALINE PHOSPHATASE 72 U/L (38-126); ANION GAP 6 (5-19); ASPARTATE AMINO TRANSFERASE 27 U/L (14-36); BILIRUBIN,DIRECT 0.3 mg/dL (0.0-0.4); BILIRUBIN,TOTAL 0.7 mg/dL (0.2-1.3); BLOOD UREA NITROGEN 11 mg/dL (7-20); CALCIUM 9.2 mg/dL (8.4-10.2); CARBON DIOXIDE 27 mmol/L (22-30); CHLORIDE 104 mmol/L (98-107); GLUCOSE 124 mg/dL (75-110); POTASSIUM 3.9 mmol/L (3.6-5.0); TOTAL PROTEIN 6.8 g/dL (6.3-8.2)
[2020-07-21 19:36] LABS: FREE T3 4.3 pg/mL (2.77-5.27); FREE T4 (FREE THYROXINE) 1.32 ng/dL (0.78-2.19)
[2020-07-21 19:50] LABS: THYROID STIMULATING HORMONE 0.85 uIU/mL (0.47-4.68)
--- NOTE | 2020-07-21 20:46 | ER Document Report ---
ED General - General Chief Complaint: High Blood Pressure Stated Complaint: HEADACHE/ELEVATED BLOOD PRESSURE Time Seen by Provider: 07/21/20 17:57 Primary Care Provider: BRETT VELASCO MD [Primary Care Provider] - Follow up as needed Mode of Arrival: Ambulatory Notes: Patient is a 34-year-old female that comes emergency department for chief complaint of concerns about her blood pressure being elevated. She states that she had a foggy feeling earlier and she became concerned that this was because her blood pressure was too elevated. Patient is on triamterene and hydrochlorothiazide, she is also on a beta-claribel and was recently placed on clonidine. She missed her dose of clonidine tonight. Patient states he became very concerned and scared that something terrible was wrong but she denies headache, focal numbness or weakness, visual changes, chest pain, shortness of breath, or any current symptoms. Patient states she stopped smoking almost 2 days ago, she did start eating better and working out, she states she is very focused on her health now. She denies recreational drugs or significant alcohol. She states she also has been told that she has an enlarged thyroid alt brianna she is not on any medications for this at this time. Patient was given a dose of clonidine in triage, her regular 0.1 mg dose that she missed. TRAVEL OUTSIDE OF THE [place] IN LAST 30 DAYS: No - Related Data Allergies/Adverse Reactions: clindamycin [Clindamycin] Allergy (Verified 06/23/20 10:03) Anaphylactoid Home Medications: clonidine, triamterone, bisoprolol Past Medical History - General Information source: Patient - Social History Smoking Status: Former Smoker Chew tobacco use (# tins/day): No Frequency of alcohol use: None Drug Abuse: None Lives with: Family Family History: Reviewed & Not Pertinent, Hypertension, Other - Past Medical History Cardiac Medical History: Reports: Hx Hypertension Denies: Hx Congestive Heart Failure, Hx Coronary Artery Disease, Hx Heart Attack, Hx Heart Murmur Pulmonary Medical History: Denies: Hx Asthma Neurological Medical History: Endocrine Medical History: Reports: Hx Hypothyroidism. Denies: Hx Diabetes Mellitus Type 1. 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 Renal/ Medical History: Denies: Hx Peritoneal Dialysis Musculoskeletal Medical History: Reports Hx Musculoskeletal Deformity Skin Medical History: Reports Hx Cellulitis, Reports Hx MRSA Psychiatric Medical History: Reports: Hx Anxiety - Patient denies feeling more anxious of late., Hx Depression - AND ANXIETY Infectious Medical History: Reports: Hx MRSA Past Surgical History: Reports: Hx Breast Surgery - Right breast abscess incision and drainage, Hx Section - x2 - Immunizations Immunizations up to date: Yes Hx Diphtheria, Pertussis, Tetanus Vaccination: Yes - 2014 Review of Systems - Review of Systems Constitutional: No symptoms reported EENT: No symptoms reported Cardiovascular: See HPI Respiratory: No symptoms reported Gastrointestinal: No symptoms reported Genitourinary: No symptoms reported Female Genitourinary: No symptoms reported Musculoskeletal: No symptoms reported Skin: No symptoms reported Hematologic/Lymphatic: No symptoms reported Neurological/Psychological: No symptoms reported Physical Exam - Vital signs Vitals: Temp 97.8 F 07/21/20 17:59 - Notes Notes: GENERAL: Alert, interacts well. No acute distress. HEAD: Normocephalic, atraumatic. EYES: Pupils equal, round, and reactive to light. Extraocular movements intact. ENT: Oral mucosa moist, tongue midline. Oropharynx unremarkable. Airway patent. NECK: Full range of motion. Supple. Trachea midline. No lymphadenopathy. LUNGS: Clear to auscultation bilaterally, no wheezes, rales, or rhonchi. No respiratory distress. Non-tender chest wall. HEART: Regular rate and rhythm. No murmur ABDOMEN: Soft, non-tender. Non-distended. EXTREMITIES: Moves all 4 extremities spontaneously. No edema, normal radial and dorsalis pedis pulses bilaterally. No cyanosis. BACK: no cervical, thoracic, lumbar midline tenderness. No saddle anesthesia, normal distal neurovascular exam. Moves all extremities in full range of motion. NEUROLOGICAL: Alert and oriented x3. Normal speech. Cranial nerves II through XII grossly intact. Strength 5/5 in all extremities. PSYCH: Normal affect, normal mood. SKIN: Warm, dry, normal turgor. No rashes or lesions noted. Course - Re-evaluation Re-evalutation: On my evaluation patient is alert, well-appearing, and she has no complaints. She denies headache, chest pain, and she has a normal neurologic exam. I did review work-up from triage including CBC, chemistry, troponin, chest x-ray, EKG and these are unremarkable. Thyroid panel is also unremarkable. Patient states that normally her blood pressure is controlled but the past couple times it has been checked and has been high, however 200 systolic is the highest it has ever been reportedly. On recheck blood pressures in the 160s, amador chika with asymptomatic hypertension, she had missed her clonidine dose, and patient is also having nicotine withdrawals. I discussed long-term blood pressure management, clonidine specifically, her work-up, and her tests. Patient request a copy of her thyroid panel, patient is very satisfied with her evaluation after our discussion, patient states she will follow-up with primary care for recheck of her blood pressure and additional adjustments. She requests that I discussed on her paperwork that she may need her clonidine adjusted because she feels like this is not working well for her. I discussed return precautions at length, patient states appreciation and agreement. - Vital Signs Vital signs: Temp Pulse Resp BP Pulse Ox 98.1 F 72 20 162/94 H 100 07/21/20 20:52 07/21/20 20:52 07/21/20 20:52 07/21/20 20:52 07/21/20 20:52 - Laboratory Result Diagrams: 07/21/20 18:36 07/21/20 18:36 Laboratory results interpreted by me: 07/21/20 07/21/20 07/21/20 18:36 18:36 18:36 MCV 100 H MCH 33.8 H Sodium 136.6 L Glucose 124 H Urine Blood LARGE H - EKG Interpretation by Me Additional EKG results interpreted by me: EKG shows sinus rhythm at a rate of 58, QTc of 405, normal axis, no T wave inversions or ST segment changes in consecutive leads Discharge - Discharge Clinical Impression: Essential hypertension, Nicotine withdrawal Condition: Stable Disposition: HOME, SELF-CARE Additional Instructions: Congratulations on stopping smoking! You will experience symptoms from nicotine withdrawals but these will resolve. Your work-up does not show any concerning findings, your evaluation is reassuring. Your blood pressure appears to be extremely variable with clonidine, discuss if this is the medication for you with your primary provider. Continue your current medications, follow closely with your primary care for additional manag ement and treatment. Return if you worsen including severe headache, chest pain, or any other chhaya rning or worsening symptoms. Referrals: BRETT VELASCO MD [Primary Care Provider] - Follow up as needed
[2020-07-21 21:43] LABS: APPEARANCE,URINE CLEAR; BILIRUBIN,URINE NEGATIVE (NEGATIVE); COLOR,URINE STRAW; GLUCOSE, URINE NEGATIVE (NEGATIVE); KETONES,URINE NEGATIVE (NEGATIVE); LEUKOCYTE ESTERASE,URINE NEGATIVE (NEGATIVE); NITRITE,URINE NEGATIVE (NEGATIVE); PROTEIN,URINE NEGATIVE (NEGATIVE); URINE SPECIFIC GRAVITY 1.005; UROBILINOGEN,URINE NEGATIVE mg/dL (<2.0)
[2020-07-21 21:46] LABS: ADD MANUAL MICROSCOPIC YES
[2020-07-21 21:47] LABS: WBC,URINE NONE SEEN /HPF
[2020-07-21 23:49] VITALS: BP 162/94
--- NOTE | 2020-07-22 11:14 | EKG REPORT ---
SEVERITY:- NORMAL ECG - SINUS RHYTHM : Confirmed by: Shameka Santo MD 22-Jul-2020 11:13:35
== END 2020-07-21 20:52 | disposition home or self-care (01) ==
LOC: ER 17:53
DX: I10 Essential (primary) hypertension (principal); F17.203 Nicotine dependence unspecified, with withdrawal; R51 Headache; Z79.899 Other long term (current) drug therapy; Z88.1 Allergy status to other antibiotic agents
CPT/HCPCS: 93005; 99285; 36415; 84439; 83690; 84443; 84703; 85025; 80053; 81001; 84484; 84481; 71046; 93010; J3490

== ENCOUNTER → 2020-07-28 | Outpatient (CLI) | payer MEDICAID ==
[2020-07-28 13:45] LABS: ANION GAP 8 (5-19); BLOOD UREA NITROGEN 15 mg/dL (7-20); CALCIUM 9.8 mg/dL (8.4-10.2); CARBON DIOXIDE 30 mmol/L (22-30); CHLORIDE 102 mmol/L (98-107); GLUCOSE 94 mg/dL (75-110); POTASSIUM 4.1 mmol/L (3.6-5.0)
== END ==
LOC: OD 12:46
PROVIDERS: ATTEND Family Medicine
DX: R25.2 Cramp and spasm (principal)
CPT/HCPCS: 36415; 80048

== ENCOUNTER 2020-08-20 23:47 | Emergency (ER) | payer MEDICAID ==
[2020-08-21] MEDS ORDERED: HYDROCODONE/ACETAMINOPHEN 5-325 MG TABLET PO ONE (01:16)
--- NOTE | 2020-08-21 01:19 | ER Document Report ---
ED Medical Screen (RME) - General Chief Complaint: Foot Injury Stated Complaint: LEFT FOOT INJURY Time Seen by Provider: 08/21/20 01:11 Primary Care Provider: BRETT VELASCO MD [Primary Care Provider] - Follow up as needed Notes: Patient states that 2 weeks ago she scraped the top of her left foot on a drawer. Patient states that 2 days ago the area started to swell and then started to have purulent drainage. Patient does report a history of MRSA. Patient denies any fever. Patient complains of pain with weightbearing. Patient denies any history of diabetes although has a history of gestational diabetes in the past. I have greeted and performed a rapid initial assessment of this patient. A comprehensive ED assessment and evaluation of the patient, analysis of test results and completion of the medical decision making process will be conducted by additional ED providers. TRAVEL OUTSIDE OF THE [place] IN LAST 30 DAYS: No - Related Data Allergies/Adverse Reactions: clindamycin [Clindamycin] Allergy (Verified 06/23/20 10:03) Anaphylactoid Past Medical History - Social History Family history: Reviewed & Not Pertinent - Past Medical History Cardiac Medical History: Reports: Hx Hypertension Denies: Hx Congestive Heart Failure, Hx Coronary Artery Disease, Hx Heart Attack, Hx Heart Murmur Pulmonary Medical History: Denies: Hx Asthma Neurological Medical History: Endocrine Medical History: Reports: Hx Hypothyroidism. Denies: Hx Diabetes Mellitus Type 1. 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 Renal/ Medical History: Denies: Hx Peritoneal Dialysis Musculoskeltal Medical History: Reports Hx Musculoskeletal Deformity Skin Medical History: Reports Hx Cellulitis, Reports Hx MRSA Psychiatric Medical History: Reports: Hx Anxiety - Patient denies feeling more anxious of late., Hx Depression - AND ANXIETY Infectious Medical History: Reports: Hx MRSA Past Surgical History: Reports: Hx Breast Surgery - Right breast abscess incision and drainage, Hx Section - x2 - Immunizations Immunizations up to date: Yes Hx Diphtheria, Pertussis, Tetanus Vaccination: Yes - 2014 Physical Exam - Vital signs Vitals: Temp Pulse Resp BP Pulse Ox 99.3 F 92 20 168/104 H 100 08/21/20 00:14 08/21/20 00:14 08/21/20 00:14 08/21/20 00:14 08/21/20 00:14 - General General appearance: Alert Notes: Left foot tenderness, swelling with calor, wound to dorsum of the left foot Course - Vital Signs Vital signs: Temp Pulse Resp BP Pulse Ox 99.3 F 92 20 168/104 H 100 08/21/20 00:14 08/21/20 00:14 08/21/20 00:14 08/21/20 00:08/21/20 00:14 Doctor's Discharge - Discharge Referrals: BRETT VELASCO MD [Primary Care Provider] - Follow up as needed
[2020-08-21 02:01] LABS: ABSOLUTE EOSINOPHILS # (AUTO) 0.1 10^3/uL (0.0-0.6); ABSOLUTE LYMPHOCYTES (AUTO) 2.3 10^3/uL (0.5-4.7); ABSOLUTE MONOCYTES (AUTO) 0.6 10^3/uL (0.1-1.4); ABSOLUTE NEUT (AUTO) 3.9 10^3/uL (1.7-8.2); BASOPHILS % (AUTO) 0.4 % (0-2); EOSINOPHILS % (AUTO) 1.8 % (0-6); HEMATOCRIT 41.8 % (36.0-47.0); HEMOGLOBIN 14.2 g/dL (12.0-15.5); LYMPHOCYTES % (AUTO) 33.3 % (13-45); MEAN CORPUSCULAR HGB CONC 34.1 g/dL (32.0-36.0); MEAN CORPUSCULAR VOLUME 100 fl (80-97); MONOCYTES % (AUTO) 8.2 % (3-13); PLATELET COUNT 286 10^3/uL (150-450); RED BLOOD COUNT 4.19 10^6/uL (3.72-5.28); RED CELL DISTRIBUTION WIDTH 14.2 % (11.5-14.0); SEGMENTED NEUTROPHILS % (AUTO) 56.3 % (42-78); TOTAL CELLS COUNTED % (AUTO) 100 %; WHITE BLOOD COUNT 6.9 10^3/uL (4.0-10.5)
[2020-08-21 02:19] LABS: ANION GAP 9 (5-19); BLOOD UREA NITROGEN 14 mg/dL (7-20); CALCIUM 9.7 mg/dL (8.4-10.2); CARBON DIOXIDE 25 mmol/L (22-30); CHLORIDE 105 mmol/L (98-107); GLUCOSE 121 mg/dL (75-110); POTASSIUM 3.7 mmol/L (3.6-5.0)
--- NOTE | 2020-08-21 02:20 | RADIOLOGY REPORT (SQ) ---
Left foot x-ray three views on 08/21/2020 at 1:56 AM CLINICAL INDICATION: Left foot swelling, foot wound COMPARISON: None FINDINGS: Soft tissue swelling is noted in the foot especially in the dorsum of the foot. There is no radiopaque foreign body. There are no fractures. Visualized joints are well aligned. No definite plain radiographic evidence of osteomyelitis is noted. IMPRESSION: No acute bony abnormality.
--- NOTE | 2020-08-21 03:03 | RADIOLOGY REPORT (SQ) ---
EXAM DESCRIPTION: US EXTREMITY MUSCULOSKELETAL LIMITED COMPLETED DATE/TME: 08/21/2020 01:17 CLINICAL HISTORY: 34 years Female, foot wound/swelling, ?abscess Comparison: CR, left foot, same day. Technique: Targeted ultrasound in an area of concern. Standoff pad. LIMITATIONS: None Findings: Left foot, an area of concern: 3 x 1.2 x 0.6 cm poorly defined hypoechoic avascular collection in the deep soft tissues of the left foot with fistulous tract to the skin surface probably due to effusion or phlegmon. Differential diagnosis includes chronic hematoma. Cannot exclude underlying or associated neoplasm. Right foot: Compared image unremarkable. Impression: 3 x 1.2 x 0.6 cm poorly defined hypoechoic avascular collection in the deep soft tissues of the left foot with fistulous tract to the skin surface probably due to effusion or phlegmon. Cannot exclude underlying or associated neoplastic. Consider ultrasound or MRI surveillance including at three months or sooner.
[2020-08-21] MEDS ORDERED: SULFAMETHOXAZOLE/TRIMETHOPRIM 800-160 MG TABLET PO ONE (04:09)
[2020-08-21] MEDS ORDERED: HYDROCODONE/ACETAMINOPHEN 5-325 MG (6 TAB/ER DISP) PO PRN (04:09)
[2020-08-21] MEDS ORDERED: CEPHALEXIN 500 MG CAPSULE PO ONE (04:09)
--- NOTE | 2020-08-21 04:15 | ER Document Report ---
ED General - General Chief Complaint: Wound Recheck Stated Complaint: LEFT FOOT INJURY Time Seen by Provider: 08/21/20 01:11 Primary Care Provider: BRETT VELASCO MD [Primary Care Provider] - Follow up as needed TRAVEL OUTSIDE OF THE [place] IN LAST 30 DAYS: No - HPI Context: Patient is a 34-year-old female presenting with chief complaint of left foot wound and swelling. Patient states that she scraped the top of her left foot on a dresser drawer approximately 2 weeks ago. Patient notes that then 2 days ago the area started to swell and the scab that came off of the scraped area had purulent drainage underneath. Patient states she noticed some redness around the draining area as well. Patient states that she does not have a history of MRSA although the triage record reports that she said she does. Patient denies fever. Patient states her pain is throbbing and is a 4 out of 5. Pain is exacerbated by bearing weight on her left foot. Patient denies alleviating factors. Patient states that she does not have any history of diabetes. Associated symptoms: Other - See HPI Exacerbated by: Other - See HPI Relieved by: Other - See HPI - Related Data Allergies/Adverse Reactions: clindamycin [Clindamycin] Allergy (Verified 06/23/20 10:03) Anaphylactoid Past Medical History - General Information source: Patient - Social History Smoking Status: Former Smoker Frequency of alcohol use: None Drug Abuse: None Family History: Reviewed & Not Pertinent, Hypertension, Other Patient has homicidal ideation: No - Past Medical History Cardiac Medical History: Reports: Hx Hypertension Denies: Hx Congestive Heart Failure, Hx Coronary Artery Disease, Hx Heart Attack, Hx Heart Murmur Pulmonary Medical History: Denies: Hx Asthma Neurological Medical History: Endocrine Medical History: Reports: Hx Hypothyroidism. Denies: Hx Diabetes Mellitus Type 1. 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 Renal/ Medical History: Denies: Hx Peritoneal Dialysis Musculoskeletal Medical History: Reports Hx Musculoskeletal Deformity Skin Medical History: Reports Hx Cellulitis, Reports Hx MRSA Psychiatric Medical History: Reports: Hx Anxiety - Patient denies feeling more anxious of late., Hx Depression - AND ANXIETY Infectious Medical History: Reports: Hx MRSA Past Surgical History: Reports: Hx Breast Surgery - Right breast abscess incision and drainage, Hx Section - x2 - Immunizations Immunizations up to date: Yes Hx Diphtheria, Pertussis, Tetanus Vaccination: Yes - 2014 Review of Systems - Review of Systems Constitutional: No symptoms reported EENT: No symptoms reported Cardiovascular: No symptoms reported Respiratory: No symptoms reported Gastrointestinal: No symptoms reported Genitourinary: No symptoms reported Female Genitourinary: No symptoms reported Musculoskeletal: Other - Foot pain and swelling Skin: See HPI Hematologic/Lymphatic: No symptoms reported Neurological/Psychological: No symptoms reported -: Yes All other systems reviewed and negative Physical Exam - Vital signs Vitals: Temp Pulse Resp BP Pulse Ox 99.3 F 92 20 168/104 H 100 08/21/20 00:14 08/21/20 00:14 08/21/20 00:14 08/21/20 00:08/21/20 00:14 - Notes Notes: CONSTITUTIONAL [Vital signs reviewed, Patient appears comfortable, Alert and oriented X 3, Normal stature.] HEAD [Atraumatic, Normocephalic.] EYES [Eyes are normal to inspection, No discharge from eyes, Extraocular muscles intact, Sclera are normal, Conjunctiva are normal.] ENT [Ears normal to inspection, Nose examination normal, Posterior pharynx normal, Mouth normal to inspection.] NECK [Normal ROM, No jugular venous distention, No meningeal signs, no carotid bruit.] RESPIRATORY CHEST [Chest is nontender, Breath sounds normal, No respiratory distress.] CARDIOVASCULAR [RRR, No murmurs, Normal S1 S2, No rub, No gallop.] ABDOMEN [Abdomen is nontender, No pulsatile masses, No other masses, Bowel sounds normal, No distension, No peritoneal signs, No hernias.] BACK [There is no CVA Tenderness, There is no tenderness to palpation, Normal inspection.] UPPER EXTREMITY [Inspection normal, No cyanosis, No clubbing, No edema, 2+ radial pulses.] LOWER EXTREMITY Lower extremity exam is significant for swelling and erythema on the dorsal aspect of the left foot. There is 1/2 cm semilunar shaped wound in the skin on the anterior surface of the left ankle joint. There is some erythema noted on the dorsum of the left foot. Palpation around the area of the skin opening is tender but remainder of physical exam in terms of touching the foot does not elicit any pain. Pressing on the compartment does not cause any expression of purulent material from the break in the skin. The skin is warm to touch. No area of true induration or fluctuance can be appreciated. Patient is able to move all 5 toes without difficulty. Cap refill is less than 2 seconds. NEURO [No focal motor deficits, No focal sensory deficits, Speech normal.] SKIN Skin exam unremarkable other than wounds and erythema noted in relation to left foot which is documented on lower extremity exam above.] LYMPHATIC [No adenopathy in neck.] PSYCHIATRIC [Normal affect. ] Course - Re-evaluation Re-evalutation: 08/21/20 04:41 Results of ED MSE discussed with patient. All questions were answered prior to discharge. Emergency signs and symptoms, reasons to return to the emergency department discussed with patient. Medical decision making: X-rays of the foot revealed no retained foreign body. Ultrasound was unremarkable for a definite consolidated area of fluid consistent with an abscess. Report did note an area that appears to be a fistula which has contact with surface. This may represent a previously encapsulated area of purulence that has festered to the point of break in skin. I do not think there is any reason to attempt any type of incision and drainage at this point as the patient is having spontaneous drainage and there is no obvious collection of fluid noted on ultrasound. I will put the patient on Keflex and Bactrim. Precautions and reasons to return to the emergency department discussed with la lee. - Vital Signs Vital signs: Temp Pulse Resp BP Pulse Ox 98.1 F 89 18 145/91 H 100 08/21/20 04:25 08/21/20 04:25 08/21/20 04:25 08/21/20 04:25 08/21/20 04:25 - Laboratory Result Diagrams: 08/21/20 01:45 08/21/20 01:45 Laboratory results interpreted by me: 08/21/20 08/21/20 01:45 01:45 MCV 100 H MCH 34.0 H RDW 14.2 H Glucose 121 H - Diagnostic Test Radiology reviewed: Reports reviewed Discharge - Discharge Clinical Impression: Cellulitis of left foot Condition: Stable Disposition: HOME, SELF-CARE Additional Instructions: Return to the Emergency Department without delay if any worse. HOME CARE INSTRUCTIONS & INFORMATION: Thank you for choosing us for your medical needs. We hope you're satisfied with the care you received. After you leave, you must properly care for your problem and, at the same time, observe its progress. Any condition can change. Some illnesses can change rapidly over hours or days. If your condition worsens, return to the Emergency Department or see your physician promptly. ABOUT YOUR X-RAYS AND EKG'S: If you had an EKG or X-rays taken, they have been read by the Emergency Physician. The X-rays and EKG's will also be read by a Radiologist or Project Accountant within 24 hours. If discrepancies are noted, you will be notified by telephone. Please be certain the ED has a correct telephone number & address where you can be reached. Also, realize that some fractures or abnormalities do not show up on initial X-rays. If your symptoms continue, see your physician. ABOUT YOUR LABORATORY TEST: If you had laboratory tests, the results have been reviewed by the Emergency Physician. Some test results (for example cultures) may not be available for several days. You will be contacted if any test result shows you need additional treatment. Please be certain the ED has a correct telephone number and address where you can be reached. ABOUT YOUR MEDICATIONS: You will receive instructions on how to take your medicine on the prescription label you receive. Additional information may be provided by the Pharmacy. If you have questions afterwards, call the ED for clarification or further instructions. Some prescribed medications may cause drowsiness. Do not perform tasks such as driving a car or operating machinery without consulting your Pharmacist. If you feel you need a refill of pain m edication, your condition will need re-evaluation. Please do not call for a refill of any medication. ABOUT YOUR SIGNATURE: Signature of this document acknowledges to followin. Understanding that you received emergency treatment and that you may be released before al medical problems are known or treated. Please be certain the ED has a correct phone number & address where you can be reached. 2. Acknowledgement that you will arrange for follow-up care as recommended. 3. Authorization for the Emergency Physician to provide information to your follow-up Physician in order to maximize your care. AT ANY TIME, IF YOUR SYMPTOMS CHANGE SIGNIFICANTLY OR WORSEN OR YOU DEVELOP NEW SYMPTOMS, RETURN TO THE EMERGENCY DEPARTMENT IMMEDIATELY FOR RE-EVALUATION. OUR GOAL IS TO PROVIDE EXCELLENT MEDICAL CARE! WE HOPE THAT WE HAVE MET YOUR EXPECTATIONS DURING YOUR EMERGENCY DEPARTMENT VISIT AND THAT YOU FEEL YOU HAVE RECEIVED EXCELLENT CARE! Cellulitis You have an infection of your skin and underlying soft tissues called cellulitis. This is due to bacteria, which can enter through any break in the skin, or even through an irritated hair follicle. Untreated, cellulitis will usually worsen. Antibiotics are required. Usually, warm packs or warm soaks, and elevation of the infected area are recommended. You should start getting better within 24 to 36 hours. Most infections respond quickly to the right medication. Follow-up care is important, however, to check for abscess (boil) formation, unsuspected foreign body, or resistant infection. If you develop fever, chills, or if the area of infection is becoming rapidly more swollen or painful, call the doctor at once. Prescriptions: Hydrocodone/Acetaminophen [[place] 5-325 Tablet] 1 each PO Q6HP PRN #12 tablet PRN Reason: pain Sulfamethoxazole/Trimethoprim [Bactrim Ds Tablet] 2 tab PO BID #14 tablet Cephalexin Monohydrate [Keflex 500 mg Capsule] 500 mg PO QID 5 Days #28 capsule Referrals: BRETT VELASCO MD [Primary Care Provider] - Follow up as needed
[2020-08-21 04:27] VITALS: BP 145/91
== END 2020-08-21 04:25 | disposition home or self-care (01) ==
LOC: ER 23:47
DX: L03.116 Cellulitis of left lower limb (principal); I10 Essential (primary) hypertension; Z87.892 Personal history of anaphylaxis; Z88.1 Allergy status to other antibiotic agents; Z87.891 Personal history of nicotine dependence
CPT/HCPCS: 99285; 36415; 87070; 87205; 85025; 87077; 80048; 73630; 76882; J3490; 87186

== ENCOUNTER 2020-11-05 16:07 | Emergency (ER) | payer MEDICAID ==
[2020-11-05] MEDS ORDERED: PENICILLIN V POTASSIUM 500 MG TABLET PO ONE (18:34)
[2020-11-05] MEDS ORDERED: PREDNISONE 20 MG TABLET PO ONE (18:39)
[2020-11-05] MEDS ORDERED: HYDROCODONE/ACETAMINOPHEN 5-325 MG TABLET PO ONE (18:39)
[2020-11-05] MEDS ORDERED: CEPHALEXIN 500 MG CAPSULE PO ONE (18:39)
--- NOTE | 2020-11-05 18:39 | ER Document Report ---
ED ENT - General Chief Complaint: Sore Throat Stated Complaint: SORE THROAT Time Seen by Provider: 11/05/20 18:27 Primary Care Provider: BRETT VELASCO MD [Primary Care Provider] - Follow up in 3-5 days Mode of Arrival: Ambulatory Information source: Patient, [facility] Records Notes: 34-year-old female patient comes emergency room complaining of sore throat for 2 days. She is having fever. She has not been around anybody with illness that she knows of. There is no cough or runny nose. TRAVEL OUTSIDE OF THE [place] IN LAST 30 DAYS: No - Related Data Allergies/Adverse Reactions: clindamycin [Clindamycin] Allergy (Verified 11/05/20 16:52) Anaphylactoid Past Medical History - General Information source: Patient, [facility] Records - Social History Smoking Status: Former Smoker Cigarette use (# per day): No Chew tobacco use (# tins/day): No Smoking Education Provided: No Frequency of alcohol use: None Lives with: Family Family History: Reviewed & Not Pertinent, Hypertension, Other - Past Medical History Cardiac Medical History: Reports: Hx Hypercholesterolemia, Hx Hypertension Pulmonary Medical History: Neurological Medical History: Endocrine Medical History: Reports: Other - Goiter Musculoskeletal Medical History: Reports Hx Musculoskeletal Deformity Skin Medical History: Reports Hx Cellulitis, Reports Hx MRSA Psychiatric Medical History: Reports: Hx Anxiety - Patient denies feeling more anxious of late., Hx Depression - AND ANXIETY Infectious Medical History: Reports: Hx MRSA Past Surgical History: Reports: Hx Breast Surgery - Right breast abscess incision and drainage, Hx Section - x2 - Immunizations Immunizations up to date: Yes Hx Diphtheria, Pertussis, Tetanus Vaccination: Yes - 2014 Review of Systems - Review of Systems Constitutional: Fever EENT: Throat pain Cardiovascular: No symptoms reported Respiratory: No symptoms reported Gastrointestinal: No symptoms reported Genitourinary: No symptoms reported Female Genitourinary: No symptoms reported Musculoskeletal: No symptoms reported Skin: No symptoms reported Hematologic/Lymphatic: No symptoms reported Neurological/Psychological: No symptoms reported Physical Exam - Vital signs Vitals: Temp Pulse Resp BP Pulse Ox 100.7 F H 101 H 20 163/98 H 100 11/05/20 16:40 11/05/20 16:40 11/05/20 16:40 11/05/20 16:40 11/05/20 16:40 Interpretation: Hypertensive, Febrile - General General appearance: Appears well, Alert In distress: None - HEENT Head: Normocephalic, Atraumatic Eyes: Normal Pupils: PERRL External canal: Normal Tympanic membrane: Normal Pharynx: Erythema. No: Exudate, Uvular edema Neck: Anterior cervical chain - Some anterior cervical chain tenderness, Other - Enlarged thyroid - Respiratory Respiratory status: No respiratory distress - Cardiovascular Rhythm: Regular - Abdominal Inspection: Obese - Back Back: Normal - Extremities General upper extremity: Normal inspection General lower extremity: Normal inspection - Neurological Neuro grossly intact: Yes - Psychological Associated symptoms: Normal affect, Normal mood - Skin Skin Temperature: Hot Skin Moisture: Moist Skin Color: Normal Course - Vital Signs Vital signs: Temp Pulse Resp BP Pulse Ox 99.5 F 92 18 152/104 H 100 11/05/20 19:14 11/05/20 19:14 11/05/20 19:14 11/05/20 19:14 11/05/20 19:14 - Laboratory Results Critical Laboratory Results Reviewed: No Critical Results - Radiology Results Critical Radiology Results Reviewed: No Critical Results Discharge - Discharge Clinical Impression: Strep throat, Elevated blood pressure reading Fever Qualifiers: Fever type: unspecified Qualified Code(s): R50.9 - Fever, unspecified Condition: Stable Disposition: HOME, SELF-CARE Additional Instructions: Strep Throat: Your sore throat is due to the streptococcus germ (strep throat). Strep throat usually makes you feel quite ill with fever and aches, headache, swollen sore throat, and tender bumps under the angles of the jaw. Strep throat requires antibiotic treatment. Although the sore throat may go away by itself, complications such as rheumatic fever, kidney disease, or throat abscess can occur. We usually prescribe antibiotics by mouth. Be sure to take the medicine until it's gone. If you stop early, the strep may come back. If you are vomiting, are severely ill, or can't remember to take pills, we can give you an antibiotic shot. Take acetaminophen or ibuprofen for pain and fever. Sip frequent clear liquids, or use popsicles or ice chips. Anesthetic sprays or lozenges may help. Make sure the air in the room is not too dry. Avoid using decongestants or antihistamines. Call the doctor if there is no improvement in three days, or if you have difficulty breathing, increasing throat pain, high fever, rash, or frequent vo miting. Take the cephalexin antibiotic as prescribed for the full 10 days. Start taking the prednisone as prescribed tomorrow--you were given today's dose here in the emergency room. Drink plenty fluids get plenty of rest. Take Tylenol every 4 hours for fever as needed. Take ibuprofen 600 mg every 8 hours for the next few days for pain and inflammation. Your blood pressure was a little elevated this evening, be sure you do not miss any of the doses of your blood pressure medication. Follow-up with your primary care provider if not improving. RETURN TO THE EMERGENCY ROOM IF ANY NEW OR WORSENING SYMPTOMS. Prescriptions: Prednisone [Deltasone 10 mg Tablet] 10 mg PO ASDIR PRN #10 tablet PRN Reason: Cephalexin Monohydrate [Keflex 500 mg Capsule] 500 mg PO TID #30 capsule Forms: Return to Work Referrals: BRETT VELASCO MD [Primary Care Provider] - Follow up in 3-5 days
--- NOTE | 2020-11-05 18:43 | ER Document Report ---
HPI - HPI Time Seen by Provider: 11/05/20 18:27 Pain Level: 1 - EENT EENT: REPORTS: Sore Throat. DENIES: Ear Pain, Eye problems - REPRODUCTIVE Reproductive: DENIES: : Past Medical History - General Information source: Patient - Social History Smoking Status: Current Some Day Smoker Family History: Reviewed & Not Pertinent, Hypertension, Other - Past Medical History Cardiac Medical History: Reports: Hx Hypercholesterolemia, Hx Hypertension Denies: Hx Congestive Heart Failure, Hx Coronary Artery Disease, Hx Heart Attack, Hx Heart Murmur Pulmonary Medical History: Denies: Hx Asthma Neurological Medical History: Endocrine Medical History: Reports: Hx Diabetes Mellitus Type 2, Hx Hypothyroidism. Denies: Hx Diabetes Mellitus Type 1 Renal/ Medical History: Denies: Hx Peritoneal Dialysis Musculoskeletal Medical History: Reports Hx Musculoskeletal Deformity Skin Medical History: Reports Hx Cellulitis, Reports Hx MRSA Psychiatric Medical History: Reports: Hx Anxiety - Patient denies feeling more anxious of late., Hx Depression - AND ANXIETY Infectious Medical History: Reports: Hx MRSA Past Surgical History: Reports: Hx Breast Surgery - Right breast abscess incision and drainage, Hx Section - x2 - Immunizations Immunizations up to date: Yes Hx Diphtheria, Pertussis, Tetanus Vaccination: Yes - 2014 [facility] Provider Document - CONSTITUTIONAL Agree With Documented VS: Yes Exam Limitations: No Limitations General Appearance: WD/WN Notes: PHYSICAL EXAMINATION:reviewed vital signs by RN GENERAL: Well-appearing, well-nourished and in no acute distress. HEAD: Atraumatic, normocephalic. EYES: Pupils equal round and reactive to light, extraocular movements intact, conjunctiva are normal. ENT: TM intact with bilateral serous effusion, no erythema. Nares boggy bilaterally, oropharynx with erythema withexudates. Moist mucous membranes. Uvula midline. No trismus NECK: Normal range of motion, supple without lymphadenopathy LUNGS: Breath sounds clear to auscultation bilaterally and equal. No wheezes rales or rhonchi. HEART: Regular rate and rhythm without murmurs ABDOMEN: Soft, nontender, nondistended abdomen. No guarding, no rebound. No masses appreciated. Female : deferred Musculoskeletal: Normal range of motion, no pitting or edema. No cyanosis. NEUROLOGICAL: Cranial nerves grossly intact. Normal speech, normal gait. Normal sensory, motor exams PSYCH: Normal mood, normal affect. SKIN: Warm, Dry, normal turgor, no rashes or lesions noted. - INFECTION CONTROL TRAVEL OUTSIDE OF THE [place] IN LAST 30 DAYS: No Course - Re-evaluation Re-evalutation: 11/05/20 18:35 Presentation of several days of sore throat in an otherwise well-appearing patient. Rapid strep is positive. History and exam are not consistent with a retropharyngeal abscess or peritonsillar abscess. Airway is patent. No difficulty handling oral secretions. Vitals within normal limits. At this t michelle will discharge with return precautions and follow-up recommendations. Verbal discharge instructions given a the bedside and opportunity for questions given. Medication warnings reviewed. Patient is in agreement with this plan and has verbalized understanding of return precautions and the need for primary care follow-up in the next 24-48 hours - Vital Signs Vital signs: Temp Pulse Resp BP Pulse Ox 100.7 F H 101 H 20 163/98 H 100 11/05/20 16:40 11/05/20 16:40 11/05/20 16:40 11/05/20 16:40 11/05/20 16:40 Discharge - Discharge Clinical Impression: Strep throat Condition: Stable Disposition: HOME, SELF-CARE Instructions: Strep Throat ([facility]), Penicillin V K ([facility]), Sore Throat ([facility]) Additional Instructions: You have been diagnosed with strep throat based on a positive strep test. You have been treated with a dose of penicillin here in the emergency department and do not need any additional antibiotics. Please continue to take ibuprofen 600 mg every 6 hours or Tylenol 1000 mg every 6 hours as needed for throat discomfort. You can also gargle with salt water. Continue to drink plenty of fluids. Follow-up with your primary care doctor in the next several days. Return if you become unable to swallow, have difficulty breathing, pass out, have persistent vomiting that prevents you from being able to tolerate fluids, or have any other symptoms that are concerning to you. Prescriptions: Penicillin V Potassium [Penicillin Vk 500 mg Tablet] 500 mg PO BID #20 tablet Forms: Return to Work Referrals: BRETT VELASCO MD [Primary Care Provider] - Follow up in 3-5 days
[2020-11-05] MEDS ORDERED: ACETAMINOPHEN 325 MG TABLET PO ONE (18:45)
[2020-11-05 19:18] VITALS: BP 152/104
== END 2020-11-05 19:14 | disposition home or self-care (01) ==
LOC: ER 16:07
DX: J02.0 Streptococcal pharyngitis (principal); R50.9 Fever, unspecified; I10 Essential (primary) hypertension; E04.9 Nontoxic goiter, unspecified; Z87.891 Personal history of nicotine dependence; Z88.1 Allergy status to other antibiotic agents
CPT/HCPCS: 99285; 96361; 96374; 96375; 87880; J3490; J7512; 96376

== ENCOUNTER → 2020-11-08 | Outpatient (CLI) | payer MEDICAID ==
[2020-11-08 11:04] LABS: ABSOLUTE EOSINOPHILS # (AUTO) 0.1 10^3/uL (0.0-0.6); ABSOLUTE LYMPHOCYTES (AUTO) 2.8 10^3/uL (0.5-4.7); ABSOLUTE MONOCYTES (AUTO) 0.5 10^3/uL (0.1-1.4); ABSOLUTE NEUT (AUTO) 3.8 10^3/uL (1.7-8.2); BASOPHILS % (AUTO) 0.4 % (0-2); EOSINOPHILS % (AUTO) 1.3 % (0-6); HEMATOCRIT 40.3 % (36.0-47.0); HEMOGLOBIN 13.8 g/dL (12.0-15.5); LYMPHOCYTES % (AUTO) 38.6 % (13-45); MEAN CORPUSCULAR HEMOGLOBIN 33.8 pg (27.0-33.4); MEAN CORPUSCULAR HGB CONC 34.2 g/dL (32.0-36.0); MEAN CORPUSCULAR VOLUME 99 fl (80-97); MONOCYTES % (AUTO) 6.8 % (3-13); PLATELET COUNT 301 10^3/uL (150-450); RED BLOOD COUNT 4.07 10^6/uL (3.72-5.28); RED CELL DISTRIBUTION WIDTH 14.6 % (11.5-14.0); SEGMENTED NEUTROPHILS % (AUTO) 52.9 % (42-78); TOTAL CELLS COUNTED % (AUTO) 100 %; WHITE BLOOD COUNT 7.2 10^3/uL (4.0-10.5)
[2020-11-08 11:41] LABS: ALBUMIN 3.6 g/dL (3.5-5.0); ALKALINE PHOSPHATASE 84 U/L (38-126); ASPARTATE AMINO TRANSFERASE 20 U/L (14-36); BILIRUBIN,DIRECT 0.2 mg/dL (0.0-0.4); BILIRUBIN,TOTAL 0.6 mg/dL (0.2-1.3); BLOOD UREA NITROGEN 11 mg/dL (7-20); CALCIUM 8.8 mg/dL (8.4-10.2); CHOLESTEROL 157.44 mg/dL (0-200); GLUCOSE 88 mg/dL (75-110); POTASSIUM 4.2 mmol/L (3.6-5.0); TOTAL PROTEIN 7.1 g/dL (6.3-8.2); TRIGLYCERIDES 121 mg/dL (<150)
[2020-11-08 11:49] LABS: CARBON DIOXIDE 31 mmol/L (22-30); CHLORIDE 103 mmol/L (98-107)
[2020-11-08 11:53] LABS: DIRECT LDL 110 mg/dL (<100)
[2020-11-08 12:32] LABS: ANION GAP 3 (5-19)
== END ==
LOC: OD 09:11
PROVIDERS: ATTEND Family Medicine
DX: E78.00 Pure hypercholesterolemia, unspecified (principal); R53.83 Other fatigue
CPT/HCPCS: 36415; 80053; 80061; 82607; 84443; 85025